=== PATIENT | male | born 1935 | race Caucasian/White ===

== ENCOUNTER → 2016-12-14 | Outpatient (CLI) | payer OTHER, BC ==
[~2016-12-14] MED LIST: AGG PO; ATOR10TA82 PO; FRRG PO; HYDC25 PO; MULT-513 PO; OMEG10007 PO
[2016-12-14 09:42] LABS: HEMATOCRIT 41.3 % (42-52); MEAN CELL VOLUME 94.7 fL (80-100); MEAN CORPUSCULAR HGB CONC 34.9 g/dl (32-36); MEAN PLATELET VOLUME 9.8 fL (7.4-10.4); PLATELET COUNT 213 K/uL (130-400); RED BLOOD COUNT 4.36 M/uL (4.7-6.1); WHITE BLOOD COUNT 5.31 K/uL (4.8-10.8)
[2016-12-14 09:47] LABS: URINE APPEARANCE CLEAR (CLEAR); URINE BILIRUBIN NEG (NEG); URINE COLOR YELLOW; URINE EPITHELIAL CELL AUTO 0-5 /lpf (0-5); URINE NITRITE NEG (NEG); URINE PH 6.5 (4.5-7.5); URINE SPECIFIC GRAVITY 1.015 (1.000-1.030); UROBILINOGEN NEG (NEG)
[2016-12-14 09:50] LABS: MANUAL MICROSCOPIC REQUIRED? NO; REVIEW REQ? NO
[2016-12-14 10:04] LABS: BLOOD UREA NITROGEN 19 mg/dl (7-18); BUN/CREATININE RATIO 11.9 (10-20); CALCIUM 8.6 mg/dl (8.5-10.1); CARBON DIOXIDE 28 mmol/L (21-32); CHLORIDE 102 mmol/L (98-107); GLUCOSE 107 mg/dl (70-99); PHOSPHORUS 2.6 mg/dl (2.5-4.9); POTASSIUM 4.3 mmol/L (3.5-5.1); SODIUM 137 mmol/L (136-145)
[2016-12-14 10:29] LABS: URINE PROTIEN/CREAT RATIO 0.1 (0-0.2); URINE TOTAL PROTEIN 14.4 mg/dl (0-11.9)
== END | disposition home or self-care (01) ==
LOC: C.LAB1850 07:14
PROVIDERS: ATTEND Internal Medicine Nephrology
DX: I10 Essential (primary) hypertension (principal); N18.3 Chronic kidney disease, stage 3 (moderate); D63.8 Anemia in other chronic diseases classified elsewhere; N25.81 Secondary hyperparathyroidism of renal origin

== ENCOUNTER → 2017-06-14 | Outpatient (CLI) | payer OTHER, BC ==
[~2017-06-14] MED LIST changes: -ATOR10TA82 PO; +ATOR10TA88 PO
[2017-06-14 16:41] LABS: HEMATOCRIT 39.8 % (42-52); MEAN CORPUSCULAR HEMOGLOBIN 32.2 pg (25-34); MEAN CORPUSCULAR HGB CONC 33.9 g/dl (32-36); MEAN PLATELET VOLUME 10.6 fL (7.4-10.4); PLATELET COUNT 215 K/uL (130-400); RED BLOOD COUNT 4.19 M/uL (4.7-6.1); WHITE BLOOD COUNT 5.82 K/uL (4.8-10.8)
[2017-06-14 16:47] LABS: BLOOD UREA NITROGEN 21 mg/dl (7-18); BUN/CREATININE RATIO 13.7 (10-20); CALCIUM 9.4 mg/dl (8.5-10.1); CARBON DIOXIDE 27 mmol/L (21-32); CHLORIDE 101 mmol/L (98-107); GLUCOSE 91 mg/dl (70-99); SODIUM 135 mmol/L (136-145)
[2017-06-14 16:48] LABS: PHOSPHORUS 2.9 mg/dl (2.5-4.9); URINE APPEARANCE CLEAR (CLEAR); URINE BILIRUBIN NEG (NEG); URINE COLOR YELLOW; URINE EPITHELIAL CELL AUTO 0-5 /lpf (0-5); URINE NITRITE NEG (NEG); URINE SPECIFIC GRAVITY 1.015 (1.000-1.030); UROBILINOGEN NEG (NEG)
[2017-06-14 16:50] LABS: MANUAL MICROSCOPIC REQUIRED? NO; REVIEW REQ? NO
[2017-06-14 16:57] LABS: URINE TOTAL PROTEIN < 5.0 mg/dl (0-11.9)
== END | disposition home or self-care (01) ==
LOC: C.LAB1850 14:49
PROVIDERS: ATTEND Internal Medicine Nephrology
DX: J45.909 Unspecified asthma, uncomplicated (principal); I12.9 Hypertensive chronic kidney disease with stage 1 through stage 4 chronic kidney disease, or unspecified chronic kidney disease; N18.3 Chronic kidney disease, stage 3 (moderate); N25.81 Secondary hyperparathyroidism of renal origin

== ENCOUNTER → 2017-12-18 | Outpatient (CLI) | payer OTHER, BC ==
[~2017-12-18] MED LIST changes: +ATOR10TA82 PO; -ATOR10TA88 PO
[2017-12-18 09:34] LABS: HEMATOCRIT 40.7 % (42-52); HEMOGLOBIN 14.3 g/dL (14.0-18.0); MEAN CELL VOLUME 94.9 fL (80-100); MEAN CORPUSCULAR HEMOGLOBIN 33.3 pg (25-34); MEAN CORPUSCULAR HGB CONC 35.1 g/dl (32-36); MEAN PLATELET VOLUME 10.1 fL (7.4-10.4); PLATELET COUNT 224 K/uL (130-400); RED CELL DISTRIBUTION WIDTH SD 44.4 fL (36.4-46.3); WHITE BLOOD COUNT 4.78 K/uL (4.8-10.8)
[2017-12-18 09:49] LABS: ALBUMIN 3.6 gm/dl (3.4-5.0); BLOOD UREA NITROGEN 18 mg/dl (7-18); CARBON DIOXIDE 27 mmol/L (21-32); CREATININE 1.57 mg/dl (0.60-1.40); GLUCOSE 100 mg/dl (70-99); POTASSIUM 3.9 mmol/L (3.5-5.1); SODIUM 133 mmol/L (136-145)
[2017-12-18 09:50] LABS: PHOSPHORUS 2.7 mg/dl (2.5-4.9)
== END | disposition home or self-care (01) ==
LOC: C.LAB1850 07:13
PROVIDERS: ATTEND Internal Medicine Nephrology
DX: I12.9 Hypertensive chronic kidney disease with stage 1 through stage 4 chronic kidney disease, or unspecified chronic kidney disease (principal); N18.3 Chronic kidney disease, stage 3 (moderate); N25.81 Secondary hyperparathyroidism of renal origin; D63.8 Anemia in other chronic diseases classified elsewhere

== ENCOUNTER 2020-11-29 09:34 | Observation (INO) ==
--- NOTE | 2020-11-29 10:05 | Emergency Department Note ---
Impression & Plan Retrosternal chest pain ED Provider Note INFORMANT: Patient ED PROVIDER(S): Alonzo Pantoja MD CHIEF COMPLAINT: Chest pain PLAN: Disposition: Admitted Condition: Good Outpatient prescription management: none Referral: None MEDICAL DECISION MAKING: Patient presented complaining of intermittent chest pain. He had no pain on initial evaluation. His ECG was nonischemic. The patient had blood work and imaging done. Chest x-ray was unremarkable. The patient's blood work revealed an unremarkable CBC and chemistry panel. The patient's troponin was elevated. This was concerning. He was given oral aspirin. He was reassessed and had no additional chest pain. He will need further management in the hospital. Consultation was made with the hospitalist service, Dr. Min. Patient was evaluated in the ER for further management. Triage Nursing notes reviewed and agree them. Additional history obtained from patient's Vital Signs: reviewed and remarkable for no significant abnormalities Differential diagnosis: Cardiac ischemia, aortic dissection, pulmonary embolism, pneumothorax, pneumoni a, pericarditis, myocarditis, esophageal rupture, GERD, cholecystitis, pancreatitis, musculoskeletal, as well as other pathologies. Diagnostics interpreted by me: ECG: Twelve-lead ECG reveals sinus rhythm with sinus arrhythmia at [address] elevation or depression. No PVCs or PACs. Normal axis and interval. Cardiac Monitoring: Cardiac monitoring ordered by me: The patient was placed on continuous cardiac monitoring and observed. It revealed a normal sinus rhythm at 70 beats per minute without ectopy or evidence of dysrhythmia. Imaging studies: Chest x-ray. Findings: A chest x-ray was performed and revealed no pneumothorax, effusion, infiltrate, pulmonary edema, free air under the d iaphragm, or wide mediastinum. Impression: No acute disease. HPI: The patient is a 85 year old male who presents to the Emergency Room with complaints of retrosternal chest pain. This started 2 days ago and is intermittent. Become severe at times. The patient also notes the following associated symptoms, weakness, chronic cough. The patient has tried Tums for relieving factors. Current pain is rated as 0/10. Pain at the maximum was 8 out of 10. No radiation. Pt denies LOC, headache, fevers, chills, diaphoresis, visual changes, neck pain, breathing difficulties, nausea, vomiting, abdominal pain, back pain, melena, hematochezia, urinary symptoms, numbness, weakness, lymphadenopathy, rash, or other complaints. ROS: See above HPI for pertinent positives & negatives. A total of 10 systems reviewed and were otherwise negative. PAST MEDICAL HISTORY:See Below , GERD, hypertension PAST SURGICAL HISTORY:See Below, FAMILY HISTORY:See Below SOCIAL HISTORY:See Below, HOME MEDICATIONS:See Below ALLERGIES:See Below VITALS:See Below PHYSICAL EXAMINATION: GENERAL: Awake, alert, well-appearing, in no distress HENT: Normocephalic, atraumatic. Oropharynx unremarkable. EYES: Normal conjunctiva. Sclera non-icteric. NECK: Inspection normal. Non-tender. Supple. No nuchal rigidity. FROM. No masses. RESPIRATORY: Clear to auscultation. No wheezes. No rales. Normal respiratory effort. CARDIAC: Normal rate. Normal rhythm. No murmurs. No rubs. Extremities warm and well perfused. Pulses equal. No JVD. GI: Soft, non-distended. No tenderness to palpation. No rebound or guarding. No masses. RECTAL: Deferred. MUSCULOSKELETAL: Atraumatic. Chest examination reveals no tenderness. The back is symmetrical on inspection without obvious abnormality. There is no CVA tenderness to palpation. No joint edema. LOWER EXTREMITIES: Calves are equal size bilaterally and non-tender. No edema. No discoloration. NEURO: Normal sensorium. No sensory or motor deficits noted. SKIN: No rash or jaundice noted. 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 Vitamin D deficiency Surgical History History of colonoscopy History of ear surgery MASTOID SURGERY (1937) Social History Smoking Status: Never smoker Second Hand Exposure: No; Hx Alcohol Use: No Hx Substance Use: No Preferred Language: Bur[place]ian Communication Ability: Effective Senior Cost Analyst Required: No Beliefs That Will Affect Care: None Current Living Situation: Spouse Feels Safe at Home: Yes Assistive Devices: Glasses Allergies Allergies Allergy/AdvReac Type Severity Reaction Status Date / Time No Known Allergies Allergy Mild Verified 11/29/20 10:22 Home Meds Home Medications Medication Instructions Recorded Confirmed aspirin-dipyridamole [Aggrenox] 1 cap PO BID 09/30/18 11/29/20 ferrous gluconate 324 mg PO QAM 09/30/18 11/29/20 multivitamin 1 cap PO QAM 09/30/18 11/29/20 cholecalciferol (vitamin D3) 50 2,000 units PO BID cap 05/25/19 11/29/20 mcg (2,000 unit) capsule tamsulosin 0.4 mg capsule 0.4 mg PO BID #60 cap 05/25/19 11/29/20 omeprazole 20 mg capsule,delayed 20 mg PO Q OTHER DAY cap 12/28/19 11/29/20 release atorvastatin 10 mg PO DAILY 11/29/20 11/29/20 donepezil 5 mg PO QPM 11/29/20 11/29/20 famotidine 40 mg PO Q OTHER DAY 11/29/20 11/29/20 memantine [Namenda] 5 mg PO BID 11/29/20 11/29/20 sildenafil 100 mg PO UD PRN 11/29/20 11/29/20 telmisartan-hydrochlorothiazid 1 tab PO DAILY 11/29/20 11/29/20 [Micardis HCT] Results & Data (ED) Vital Signs Vital Signs - 24 hr 11/29/20 09:37 11/29/20 10:00 11/29/20 10:11 Temperature 36.6 C Temperature Source Temporal Artery Scan Pulse Rate 78 Pulse Rate [Bilateral Radial] 76 Pulse Rate from SpO2 Sensor Pulse Rhythm Regular Pulse Rhythm [Bilateral Radial] Regular Pulse Strength [Bilateral Radial] Normal Respiratory Rate 16 16 Respiratory Effort / Characteristics Non-Labored Non-Labored Respiratory Depth Normal Normal Respiratory Pattern Regular Blood Pressure 135/69 Blood Pressure [Left Arm] 141/67 H Blood Pressure Mean 91 Blood Pressure Mean [Left Arm] 91 Blood Pressure Position [Left Arm] Sitting Pulse Oximetry 97 97 97 Oxygen Delivery Method Room Air Room Air Room Air Sepsis Recent Fever Within 48 Hours No Sepsis New/Unexplained Change in Mental Status No Sepsis Action Taken by Nursing No Action Required 11/29/20 10:30 11/29/20 10:40 11/29/20 11:00 Temperature Temperature Source Pulse Rate 65 68 68 Pulse Rate [Bilateral Radial] Pulse Rate from SpO2 Sensor 67 67 67 Pulse Rhythm Pulse Rhythm [Bilateral Radial] Pulse Strength [Bilateral Radial] Respiratory Rate 19 14 18 Respiratory Effort / Characteristics Respiratory Depth Respiratory Pattern Blood Pressure 128/60 139/71 Blood Pressure [Left Arm] Blood Pressure Mean 82 93 Blood Pressure Mean [Left Arm] Blood Pressure Position [Left Arm] Pulse Oximetry 97 97 95 Oxygen Delivery Method Sepsis Recent Fever Within 48 Hours Sepsis New/Unexplained Change in Mental Status Sepsis Action Taken by Nursing 11/29/20 11:01 Temperature Temperature Source Pulse Rate 65 Pulse Rate [Bilateral Radial] Pulse Rate from SpO2 Sensor 65 Pulse Rhythm Pulse Rhythm [Bilateral Radial] Pulse Strength [Bilateral Radial] Respiratory Rate 16 Respiratory Effort / Characteristics Respiratory Depth Respiratory Pattern Blood Pressure Blood Pressure [Left Arm] Blood Pressure Mean Blood Pressure Mean [Left Arm] Blood Pressure Position [Left Arm] Pulse Oximetry 96 Oxygen Delivery Method Sepsis Recent Fever Within 48 Hours Sepsis New/Unexplained Change in Mental Status Sepsis Action Taken by Nursing Laboratory Data Result diagrams: 11/29/20 09:56 11/29/20 09:56 Lab Results 11/29/20 11/29/20 11/29/20 Range/Units 09:56 09:56 09:56 WBC 5.87 (4.8-10.8) K/uL RBC 4.28 L (4.7-6.1) M/uL Hgb 14.3 (14.0-18.0) g/dL Hct 41.8 L (42-52) % MCV 97.7 (80-100) fL MCH 33.4 (25-34) pg MCHC 34.2 (32-36) g/dL RDW Std Deviation 45.1 (36.4-46.3) fL RDW Coeff of Matt 12.6 (11.5-14.5) % Plt Count 219 (130-400) K/uL MPV 10.2 (7.4-10.4) fL Immature Gran % (Auto) 0.2 % Neut % (Auto) 61.9 % Lymph % (Auto) 21.1 % [place] % (Auto) 15.0 % Eos % (Auto) 1.5 % Baso % (Auto) 0.3 % Neut # (Auto) 3.63 (1.4-6.5) K/uL Lymph # (Auto) 1.24 (1.2-3.4) K/uL [place] # (Auto) 0.88 H (0.11-0.59) K/uL Eos # (Auto) 0.09 (0-0.5) K/uL Baso # (Auto) 0.02 (0-0.2) K/uL Immature Gran # (Auto) 0.01 (0.00-0.02) K/uL Sodium 136 (136-145) mmol/L Potassium 4.0 (3.5-5.1) mmol/L Chloride 104 (98-107) mmol/L Carbon Dioxide 26 (21-32) mmol/L Anion Gap 6.0 (3-11) BUN 32 H (7-18) mg/dl Creatinine 1.85 H (0.6-1.4) mg/dl Est Cr Clr Drug Dosing 29.6 ml/min Est GFR ( Amer) 37.4 Est GFR (Non-Af Amer) 32.3 BUN/Creatinine Ratio 17.0 (10-20) Glucose 83 (70-99) mg/dl Calcium 10.3 H (8.5-10.1) mg/dl Total Bilirubin 0.6 (0.2-1) mg/dl AST 19 (15-37) U/L ALT 24 (12-78) U/L Alkaline Phosphatase 66 (45-117) U/L Troponin I 0.498 H* (0-0.045) ng/ml Total Protein 7.7 (6.4-8.2) gm/dl Albumin 3.7 (3.4-5.0) gm/dl Globulin 4.0 (2.5-4.0) gm/dl Albumin/Globulin Ratio 0.9 (0.9-2) Lipase 204 (73-393) U/L COVID-19 Eval Order CovFluRsv at [facility] SARS-CoV-2 (PCR) (Negative) Influenza Type A (PCR) (Neg) Influenza Type B (PCR) (Neg) RSV (RT-PCR) (Neg) 11/29/20 Range/Units 09:56 WBC (4.8-10.8) K/uL RBC (4.7-6.1) M/uL Hgb (14.0-18.0) g/dL Hct (42-52) % MCV (80-100) fL MCH (25-34) pg MCHC (32-36) g/dL RDW Std Deviation (36.4-46.3) fL RDW Coeff of Matt (11.5-14.5) % Plt Count (130-400) K/uL MPV (7.4-10.4) fL Immature Gran % (Auto) % Neut % (Auto) % Lymph % (Auto) % [place] % (Auto) % Eos % (Auto) % Baso % (Auto) % Neut # (Auto) (1.4-6.5) K/uL Lymph # (Auto) (1.2-3.4) K/uL [place] # (Auto) (0.11-0.59) K/uL Eos # (Auto) (0-0.5) K/uL Baso # (Auto) (0-0.2) K/uL Immature Gran # (Auto) (0.00-0.02) K/uL Sodium (136-145) mmol/L Potassium (3.5-5.1) mmol/L Chloride (98-107) mmol/L Carbon Dioxide (21-32) mmol/L Anion Gap (3-11) BUN (7-18) mg/dl Creatinine (0.6-1.4) mg/dl Est Cr Clr Drug Dosing ml/min Est GFR ( Amer) Est GFR (Non-Af Amer) BUN/Creatinine Ratio (10-20) Glucose (70-99) mg/dl Calcium (8.5-10.1) mg/dl Total Bilirubin (0.2-1) mg/dl AST (15-37) U/L ALT (12-78) U/L Alkaline Phosphatase (45-117) U/L Troponin I (0-0.045) ng/ml Total Protein (6.4-8.2) gm/dl Albumin (3.4-5.0) gm/dl Globulin (2.5-4.0) gm/dl Albumin/Globulin Ratio (0.9-2) Lipase (73-393) U/L COVID-19 Eval Order SARS-CoV-2 (PCR) NEGATIVE (Negative) Influenza Type A (PCR) Negative (Neg) Influenza Type B (PCR) Negative (Neg) RSV (RT-PCR) Negative (Neg) Administered Medications Discontinued Medications Aspirin (Aspirin Chew 324 Mg) 243 mg PO NOW STA Stop: 11/29/20 10:49 Last Admin: 11/29/20 12:06 Dose: 243 mg Documented by: [id number] Discharge Plan Visit Data Chief Complaint: Illness Stated Complaint: CHEST PAIN ED Provider: Alonzo Pantoja Discharge Problem: Retrosternal chest pain Patient Disposition: Admitted As Inpatient Discharge Instructions Interventions: ED Discharge Assessment Last Done: 11/29/20 15:55
[2020-11-29 10:13] LABS: Basophils # (auto) 0.02 K/uL (0-0.2); Basophils % (auto) 0.3 %; Eosinophils # (auto) 0.09 K/uL (0-0.5); Eosinophils % (auto) 1.5 %; Hematocrit (blood only) 41.8 % (42-52); Hemoglobin 14.3 g/dL (14.0-18.0); Immature Granulocytes # (auto) 0.01 K/uL (0.00-0.02); Immature Granulocytes % (auto) 0.2 %; Lymphocytes # (auto) 1.24 K/uL (1.2-3.4); Lymphocytes % (auto) 21.1 %; Mean Corpuscular Hemoglobin 33.4 pg (25-34); Mean Corpuscular Hgb Conc 34.2 g/dL (32-36); Mean Corpuscular Volume 97.7 fL (80-100); Mean Platelet Volume 10.2 fL (7.4-10.4); Monocytes # (auto) 0.88 K/uL (0.11-0.59); Neutrophils # (auto) 3.63 K/uL (1.4-6.5); Neutrophils % (auto) 61.9 %; Platelet Count 219 K/uL (130-400); RDW Coefficient of Variation 12.6 % (11.5-14.5); RDW Standard Deviation 45.1 fL (36.4-46.3); Red Blood Count 4.28 M/uL (4.7-6.1); White Blood Count 5.87 K/uL (4.8-10.8)
[2020-11-29 10:31] LABS: Albumin Level 3.7 gm/dl (3.4-5.0); Calcium 10.3 mg/dl (8.5-10.1); Creatinine Clr Calc Pharmacy 29.6 ml/min; Est GFR (African American) 37.4; Est GFR (Non-African American) 32.3
[2020-11-29 10:39] LABS: Albumin Globulin Ratio 0.9 (0.9-2); Bilirubin,Total 0.6 mg/dl (0.2-1); Total Protein 7.7 gm/dl (6.4-8.2); Troponin I 0.498 ng/ml (0-0.045)
[2020-11-29] MEDS ORDERED: ASPIRIN CHEW 324 MG PO STA (10:48)
--- NOTE | 2020-11-29 10:58 | XRay Report ---
XR chest 1V portable CLINICAL HISTORY: Atypical chest pain COMPARISON STUDY: 10/01/2018 FINDINGS: The heart is the upper limits of normal in size. There is no failure. There is no focal pul monary consolidation. There are no pleural effusions.[ IMPRESSION: No active disease in the chest. ACT 112: Negative or not required by law. Electronically signed by: Medardo Alvarez M.D. 11/29/2020 10:56 AM
[2020-11-29 11:04] LABS: Influenza A virus by PCR Negative (Neg); Influenza B virus by PCR Negative (Neg); RSV by PCR Negative (Neg); SARS CoV2 RNA(COVID-19) InHosp NEGATIVE (Negative)
--- NOTE | 2020-11-29 11:11 | History & Physical Report ---
Date of Service November 29, 2020 Assessment & Plan (1) Elevated troponin: Patient presents with atypical chest pain history of GERD however has an elevated troponin in the face of chronic kidney disease stage III. There is some very minor lateral T wave changes which are nonspecific on his EKG. Subsequently the patient will be observed in our institution with serial enzymes. Depending on the trend of his enzymes he may be full anticoagulated. An echocardiogram will be obtained to evaluate cardiac function. The patient has previous cerebrovascular disease so likely is at risk for cardiovascular disease. He is previously been on Aggrenox and atorvastatin his aspirin dose will be increased his atorvastatin will be maintained. Other risk factors include male and hypertension (2) Chronic kidney disease, stage III (moderate): Longstanding history of chronic kidney disease likely based on hypertension (3) Hypertension: Patient typically takes telmisartan hydrochlorothiazide for blood pressure control (4) GERD (gastroesophageal reflux disease): Patient has multiple medications targeted at his GERD including Pepcid and omeprazole (5) BPH (benign prostatic hyperplasia): Patient remains on tamsulosin without lower urinary tract symptoms patient states he is only taking it once a day despite his medical reconciliation (6) Dementia: (7) DVT prophylaxis: Heparin is chosen for DVT prevention in case the patient needs proceed to cardiac intervention History of Present Illness Primary Care Provider: Pino Tucker MD 85 year old male who presents to the Emergency Room with complaints of retrosternal chest pain. This started 2 days ago and is intermittent. Pain at the maximum was 8 out of 10. No radiation or associated symptoms. Patient has suffered from reflux for years taking both omeprazole and Prilosec. Patient is to have an upper endoscopy. Patient is states that recumbency does not worsen his pain sitting up does not relieve it. Pain is nonpleuritic and is also not worsened with exertion. Patient denies any melena, hematochezia, patient does suffer from urinary frequency at night subsequently taking Flomax to help with this. Patient currently is pain-free Covid testing is negative patient is observed for chest pain which is atypical with elevated troponin Allergies Allergy/AdvReac Type Severity Reaction Status Date / Time No Known Allergies Allergy Mild Verified 11/29/20 10:22 Home Medications Medication Instructions Recorded Confirmed Type aspirin-dipyridamole [Aggrenox] 1 cap PO BID 09/30/18 11/29/20 History ferrous gluconate 324 mg PO QAM 09/30/18 11/29/20 History multivitamin 1 cap PO QAM 09/30/18 11/29/20 History cholecalciferol (vitamin D3) 50 2,000 units PO BID cap 05/25/19 11/29/20 History mcg (2,000 unit) capsule tamsulosin 0.4 mg capsule 0.4 mg PO BID #60 cap 05/25/19 11/29/20 History omeprazole 20 mg capsule,delayed 20 mg PO Q OTHER DAY cap 12/28/19 11/29/20 History release atorvastatin 10 mg PO DAILY 11/29/20 11/29/20 History donepezil 5 mg PO QPM 11/29/20 11/29/20 History famotidine 40 mg PO Q OTHER DAY 11/29/20 11/29/20 History memantine [Namenda] 5 mg PO BID 11/29/20 11/29/20 History sildenafil 100 mg PO UD PRN 11/29/20 11/29/20 History telmisartan-hydrochlorothiazid 1 tab PO DAILY 11/29/20 11/29/20 History [Micardis HCT] Past Med/Surg History Medical History (Updated 11/29/20 @ 11:10 by Regulo Min MD) Asthma STABLE Chronic kidney disease, stage III (moderate) Hyperlipidemia Hypertension Stroke 10+ YEARS AGO; 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 Vitamin D deficiency Surgical History History of colonoscopy History of ear surgery MASTOID SURGERY (1937) Social History Smoking Status: Never smoker Second Hand Exposure: No; Hx Alcohol Use: No Hx Substance Use: No Preferred Language: German Communication Ability: Effective Green Jobs Trainer Required: No Beliefs That Will Affect Care: None Current Living Situation: Spouse Feels Safe at Home: Yes Assistive Devices: Glasses Review of Systems Review of Systems: Mild distress and fatigue currently pain-free no headache, blurry or double vision no speech or swallowing issues Describes chest pain as sharp lasting an hour radiating across his chest no shortness of breath, cough or wheezes no abdominal pain, nausea or vomiting, patient suffers from frequent diarrhea no dysuria, hematuria does have some urinary frequency which is longstanding no focal joint pain or swelling no back pain, CVA tenderness or radicular pain no bruising, bleeding or rashes no focal signs of weakness or numbness or altered sensation no complaints of anxiety or depression. Is aware of his memory impairment. Physical Exam Physical Exam: The patient appeared well nourished and normally developed. Vital signs as documented. Head exam is normocephalic atraumatic no scleral icterus Neck is without JVD, thyromegaly, or carotid bruits. Lungs are clear to auscultation, no focal loss of breath sounds Cardiac exam, Rhythm is regular.. No murmurs, rubs or gallops. Abdominal exam reveals normal bowel sounds, soft non tender, no masses Extremities are nonedematous and both pedal pulses are present Neurologic exam is alert and oriented, no focal loss of strength or sensation Skin is without bruises or rashes Psychologically is with concerns for mild dementia Results & Data Results & Data ([facility]) Vital Signs (Past 12 Hours) Vital Signs Temp Pulse Pulse Resp BP BP Pulse Ox 11/29/20 10:11 97 11/29/20 10:00 76 16 141/67 H 97 11/29/20 09:37 97.9 F 78 16 135/69 97 PG Care Time/CCT Total # of Minutes Spent Total Time Spent with Patient: Total time spent is greater than 50% in coordination of care (as documented) at patient's floor/unit and/or counseling patient: Coding Level of Care Code 30445 OBS Care - Level 3 Diagnoses Elevated troponin R77.8 Chronic kidney disease, stage III (moderate) N18.3 Hypertension I10 GERD (gastroesophageal reflux disease) K21.9 BPH (benign prostatic hyperplasia) N40.0 Dementia F03.90 DVT prophylaxis Z29.9
[2020-11-29] MEDS ORDERED: MoRPHine SULFATE 2 MG/ML CARP IV PRN (16:26)
[2020-11-29] MEDS ORDERED: NITROGLYCERIN SL 0.4 MG/TAB TAB SL PRN (16:26)
[2020-11-29] MEDS ORDERED: ACETAMINOPHEN 325 MG TAB PO PRN (16:26)
[2020-11-29] MEDS ORDERED: POLYETHYLENE (MIRALAX) 17 GM PACK PO PRN (16:26)
[2020-11-29] MEDS ORDERED: ONDANSETRON INJ 2 MG/ML 2 ML VIAL IV PRN (16:26)
[2020-11-29] MEDS ORDERED: ALUMINUM/MAGNESIUM SUSP 30 ML UDC PO PRN (16:26)
[2020-11-29] MEDS: MEMANTINE HCL 5 MG TAB PO SCH (20:13)
[2020-11-29] MEDS: HEPARIN SOD 5,000 UNIT/0.5 ML VIAL SQ SCH (20:14)
[2020-11-29] MEDS: DIPYRIDAMOLE/ASPIRIN CAP PO SCH (20:14)
[2020-11-29] MEDS ORDERED: TAMSULOSIN HCL 0.4 MG CAP PO SCH (21:00)
[2020-11-29] MEDS ORDERED: DONEPEZIL HCL 5 MG TAB PO SCH (21:00)
[2020-11-30] MEDS: DIPYRIDAMOLE/ASPIRIN CAP PO SCH (08:38)
[2020-11-30] MEDS: MEMANTINE HCL 5 MG TAB PO SCH (08:38)
[2020-11-30] MEDS: HEPARIN SOD 5,000 UNIT/0.5 ML VIAL SQ SCH (08:40)
[2020-11-30] MEDS ORDERED: TELMISARTAN 40 MG TAB PO SCH (09:00)
[2020-11-30] MEDS ORDERED: ATORVASTATIN 10 MG TAB PO SCH (09:00)
[2020-11-30] MEDS ORDERED: FERROUS GLUCONATE 324 MG TAB PO SCH (09:00)
[2020-11-30] MEDS ORDERED: ASPIRIN 325 MG ECTAB PO SCH (09:00)
[2020-11-30] MEDS ORDERED: MULTIVITAMIN TAB PO SCH (09:00)
[2020-11-30] MEDS ORDERED: PANTOprazole 40 MG TAB PO SCH (09:00)
[2020-11-30] MEDS ORDERED: hydroCHLOROthiazide 25 MG TAB PO SCH (09:00)
[2020-11-30 09:56] LABS: BUN Creatinine Ratio 17.9 (10-20); Calcium 9.2 mg/dl (8.5-10.1); Est GFR (African American) 33.4; Est GFR (Non-African American) 28.8
[2020-11-30 10:11] LABS: Troponin I 0.44 ng/ml (0-0.045)
--- NOTE | 2020-11-30 10:20 | XCELERA ---
[id number]
--- NOTE | 2020-11-30 13:49 | Electrocardiogram Report ---
Test Reason : Blood Pressure : / mmHG Vent. Rate : 071 BPM Atrial Rate : 071 BPM P-R Int : 188 ms QRS Dur : 078 ms QT Int : 418 ms P-R-T Axes : 067 049 095 degrees QTc Int : 454 ms Normal sinus rhythm Normal ECG When compared with ECG of 29-NOV-2020 09:45, No significant change was found Confirmed by Yonatan Siddiqui ([id number]) on 11/30/2020 1:49:20 PM Referred By: REFERRED SELF Confirmed By:Aki Siddiqui
--- NOTE | 2020-11-30 15:34 | XCELERA ---
[id number]
--- NOTE | 2020-11-30 16:40 | Discharge Summary ---
Date of Service November 30, 2020 Admission HPI Per Admitting Provider 85 year old male who presents to the Emergency Room with complaints of retrosternal chest pain. This started 2 days ago and is intermittent. Pain at the maximum was 8 out of 10. No radiation or associated symptoms. Patient has suffered from reflux for years taking both omeprazole and Prilosec. Patient is to have an upper endoscopy. Patient is states that recumbency does not worsen his pain sitting up does not relieve it. Pain is nonpleuritic and is also not worsened with exertion. Patient denies any melena, hematochezia, patient does suffer from urinary frequency at night subsequently taking Flomax to help with this. Patient currently is pain-free Covid testing is negative patient is observed for chest pain which is atypical with elevated troponin Admission Exam Per Admitting Provider The patient appeared well nourished and normally developed. Vital signs as documented. Head exam is normocephalic atraumatic no scleral icterus Neck is without JVD, thyromegaly, or carotid bruits. Lungs are clear to auscultation, no focal loss of breath sounds Cardiac exam, Rhythm is regular.. No murmurs, rubs or gallops. Abdominal exam reveals normal bowel sounds, soft non tender, no masses Extremities are nonedematous and both pedal pulses are present Neurologic exam is alert and oriented, no focal loss of strength or sensation Skin is without bruises or rashes Psychologically is with concerns for mild dementia Principal Diagnosis chest pain Discharge Exam Constitutional well developed and well nourished Eyes PERRL, conjunctivae normal, anicteric sclerae ENMT external ear and nose normal, oropharynx normal Neck normal visual inspection Respiratory normal respiratory effort Cardiovascular RRR, no murmur, no edema Chest (Breasts) normal inspection/palpation of breasts Gastrointestinal (Abdomen) Inspection/Auscultation: abdomen normal to inspection - non tender to palpation Skin no rashes, warm and dry Neurologic no focal motor deficits Psychiatric A+Ox3, euthymic affect Discharge Data Allergies Allergy/AdvReac Type Severity Reaction Status Date / Time No Known Allergies Allergy Mild Verified 11/29/20 10:22 Consultations 11/29/20 10:48 ED Decision to Admit Stat Hospital Course (1) Retrosternal chest pain: 85 yo M w/ pMHx. of CKD, GERD, CVA 15 years prior who presents non pleuritic retrosternal chest pain that was consistent with his GERD pain. The pain would last for > 1 hour and was not worse with exercise or food. - Troponin 0.498 -> 0.463 -> 0.452 potentially due to CKD - ECHO with EF 55-60% and normal function and aortic sclerosis mild - CXR with no active disease - negative stress test - EKG with nonspecific T-wave changes - lipase nl. - COVID swab negative CKD III - Cr. 1.85 unclear baseline potentially around 1.6 - follows with Dr. Stout GERD - potential cause of chest pain - increased Famotidine to BID - discussed discontinuing Advil HTN - continue HCTZ and telmisartan for blood pressure Follow up Saturday for hospital follow up and end december with Dr. Tucker Total Time Total Time Spent Total Time Spent (In Minutes): 35 mins Total Time Includes: Examination of the Patient, Discharge Planning and Communication With Other Providers Discharge Plan Discharge Items Patient Disposition: Home - Self-Care Reason For Visit: CHEST PAIN, ELEVATED TROPONIN Discharge Diagnosis: chest pain Activity: Per Instructions section Non-emergency contact: Primary Care Provider Call non-emergency contact if: your symptoms worsen Follow-up/Referrals: Pino Tucker MD [Primary Care Provider] - Diet: Heart Healthy Addtl Attending Provider Instructions: Chest pain You came to the hospital for chest pain. The pain was similar to your reflux pain in the past but given that it was worse and you wanted to be evaluated for other causes of the pain you presented to the hospital. We noticed that you had an elevated troponin (lab test that identifies injury to the heart). The elevated troponin is likely due to accumulation with poor kidney function. Your stress test was normal and this again was reassuring. Reflux You have reflux that is potentially the cause for your chest pain. If you can increase your Famotidine to twice a day. Also, you will need to stop taking Advil as this may be making your reflux worse. Return precautions: If you develop chest pain that is worsening with exercise, or any associated shortness of breath call or come in to get evaluated. Follow up: primary doctor Dr. Tucker in 1-2 weeks Pending Studies at Discharge: No Stand-Alone Forms: [employer], Smoking Cessation Medications and DC Order Prescriptions: Continued omeprazole 20 mg capsule,delayed release(DR/EC) 20 mg PO Q OTHER DAY RF: 0 tamsulosin 0.4 mg capsule 0.4 mg PO BID Qty: 60 RF: 0 cholecalciferol (vitamin D3) 2,000 unit capsule 2,000 units PO BID RF: 0 aspirin-dipyridamole [Aggrenox] 25-200 mg Capsule, Er Multiphase 12 Hr 1 cap PO BID RF: 0 multivitamin Capsule 1 cap PO QAM RF: 0 ferrous gluconate 324 mg (38 mg iron) Tablet 324 mg PO QAM RF: 0 telmisartan-hydrochlorothiazid [Micardis HCT] 40-12.5 mg tablet 1 tab PO DAILY RF: 0 atorvastatin 10 mg tablet 10 mg PO DAILY RF: 0 sildenafil 100 mg tablet 100 mg PO UD PRN (Reason: Erectile Dysfunction) RF: 0 memantine [Namenda] 10 mg tablet 5 mg PO BID RF: 0 donepezil 5 mg tablet 5 mg PO QPM RF: 0 Changed famotidine 40 mg tablet 40 mg PO BID Qty: 0 RF: 0 Discharge Orders: Discharge Order (Routine); Ordered 11/30/20 Ordered By: Niall Hamilton Admission Data Admit Date/Time: 11/29/20 11:16 Attending Provider: Claus Hugo Admit Provider: Regulo Min Primary Care Provider: Pino Tucker Other Providers: Regulo Min Other Interventions: Discharge Summary Assessment (RN) Last Done: 11/30/20 14:20 Supervising Physician Co-Signing Physician Notes Attending Attestation I also saw the patient the resident physician and confirmed mcmahon portions of the history and physical examination. Agree with the impression and plan as noted in the resident discharge dictation. Upon our exam around 130 this afternoon, the patient was lying supine in bed without any discomfort. His was bedside. He describes several episodes of a bilateral, mid chest pain occurring at rest over the last several days. He also has a reported history of acid reflux and in some respects this pain was similar to his acid reflux (location), and in some aspects it was different (timing, duration, and intensity). Reported no associated shortness of breath or diaphoresis. He did take some Tums, with partial relief. The pain did not worsen with exertion. He was previously on omeprazole but this was discontinued by nephrology. He was then started on famotidine 40 mg once a day. It sounds as if he takes a fair amount of ibuprofen -he would estimate 400 mg 4 or 5 days a week. The patient is also on Aggrenox. Exam 128/68, 66, 18, 36.8, 99% on room air Pleasant. Conversational. No distress appreciated. HEENT unremarkable Neck is supple. No jugular venous distention is appreciated. Heart regular rate and rhythm. Auscultated rate 62 Lungs clear with nonlabored respirations Extremities without edema Laboratory data Hemoglobin 14.3 Sodium 135, potassium 4.0. BUN 36, creatinine 2.03. Troponin I 0.498, 0.463, 0.440. Covid swab is negative. Imaging Chest x-ray was unremarkable A resting echocardiogram this morning showed preserved left ventricular function, mild concentric left ventricular hypertrophy, mild aortic valve sclerosis without significant stenosis. A treadmill stress echocardiogram performed this afternoon showed no evidence of exercise-induced ischemia. The patient achieved 7 METS, 93% of maximum age- predicted heart rate, 2.5 mph at a 12% grade. Test was terminated after he achieved target heart rate. Impression and plan Chest pain, likely GERD Negative stress echocardiogram Other diagnoses as noted in resident documentation Discharge home today Office follow-up in 1 week Trial of Tylenol instead of ibuprofen Increase famotidine to twice daily Resident Activity Tracking Resident Involvement: Resident Care Provided Care Provided: Adult [facility] CBC Results Results Complete Blood Count Results: RBC 4.28 M/uL (4.7-6.1) L 11/29/20 WBC 5.87 K/uL (4.8-10.8) 11/29/20 Hgb 14.3 g/dL (14.0-18.0) 11/29/20 Hct 41.8 % (42-52) L 11/29/20 Plt Count 219 K/uL (130-400) 11/29/20 Chemistry (BMP) Results BMP Results: Sodium 135 mmol/L (136-145) L 11/30/20 Potassium 4.0 mmol/L (3.5-5.1) 11/30/20 Chloride 104 mmol/L (98-107) 11/30/20 BUN 36 mg/dl (7-18) H 11/30/20 Creatinine 2.03 mg/dl (0.6-1.4) H 11/30/20 Glucose 162 mg/dl (70-99) H 11/30/20
== END 2020-11-30 17:30 | disposition home or self-care (01) ==
LOC: 2S 09:34 → ED 09:34 → SUATTDRO 11:16 → 2S 15:55

== ENCOUNTER 2021-08-10 23:10 | Observation (INO) ==
[2021-08-10 23:56] LABS: Basophils # (auto) 0.03 K/uL (0-0.2); Basophils % (auto) 0.4 %; Eosinophils # (auto) 0.17 K/uL (0-0.5); Eosinophils % (auto) 2.2 %; Hematocrit (blood only) 38.7 % (42-52); Hemoglobin 13.1 g/dL (14.0-18.0); Immature Granulocytes # (auto) 0.01 K/uL (0.00-0.02); Immature Granulocytes % (auto) 0.1 %; Lymphocytes # (auto) 1.72 K/uL (1.2-3.4); Mean Corpuscular Hemoglobin 33.3 pg (25-34); Mean Corpuscular Hgb Conc 33.9 g/dL (32-36); Mean Corpuscular Volume 98.5 fL (80-100); Mean Platelet Volume 10.8 fL (7.4-10.4); Monocytes # (auto) 0.81 K/uL (0.11-0.59); Monocytes % (auto) 10.3 %; Neutrophils # (auto) 5.09 K/uL (1.4-6.5); Platelet Count 176 K/uL (130-400); RDW Coefficient of Variation 12.5 % (11.5-14.5); RDW Standard Deviation 44.9 fL (36.4-46.3); Red Blood Count 3.93 M/uL (4.7-6.1); White Blood Count 7.83 K/uL (4.8-10.8)
[2021-08-11 00:28] LABS: Alanine Aminotransferase 26 U/L (12-78); Albumin Level 3.1 gm/dl (3.4-5.0); Aspartate Aminotransferase 18 U/L (15-37); BUN Creatinine Ratio 21.7 (10-20); Blood Urea Nitrogen 51 mg/dl (7-18); Calcium 9.1 mg/dl (8.5-10.1); Carbon Dioxide 26 mmol/L (21-32); Chloride 109 mmol/L (98-107); Est GFR (African American) 28.3 ml/min; Est GFR (Non-African American) 24.4 ml/min; Glucose 94 mg/dl (70-99); Lipase 303 U/L (73-393); Potassium 4.1 mmol/L (3.5-5.1); Sodium 138 mmol/L (136-145)
[2021-08-11 00:38] LABS: Albumin Globulin Ratio 0.8 (0.9-2); Alkaline Phosphatase 69 U/L (45-117); Bilirubin,Total 0.3 mg/dl (0.2-1); Globulin 3.8 gm/dl (2.5-4.0); Total Protein 6.9 gm/dl (6.4-8.2)
[2021-08-11] MEDS ORDERED: ONDANSETRON INJ 2 MG/ML 2 ML VIAL IV PRN (02:06)
[2021-08-11] MEDS ORDERED: ACETAMINOPHEN 325 MG TAB PO PRN (02:06)
[2021-08-11] MEDS ORDERED: NITROGLYCERIN SL 0.4 MG/TAB TAB SL PRN (02:06)
--- NOTE | 2021-08-11 02:11 | Emergency Department Note ---
Impression & Plan Retrosternal chest pain, Chronic kidney disease, stage III (moderate), Elevated troponin, Abnormal ECG ED Provider Note INFORMANT: Patient ED PROVIDER(S): Alonzo Pantoja MD CHIEF COMPLAINT: Chest pain PLAN: Disposition: Admitted Condition: Good Outpatient prescription management: none Referral: None MEDICAL DECISION MAKING: Patient presented to emergency department complaining of chest pain. This occurred at rest. He has been having intermittent chest discomfort and is scheduled for stress test. His prehospital ECG had very subtle ST depression in 3 and aVF initially. This did resolve on arrival. Patient's ECG here just showed poor R wave progression. No depression. His chest x-ray was unremarkable. He had slight worsening of his chronic kidney disease. The patient and his were educated. They felt comfortable with the plan of admission and further work-up. Consultation was made with Dr. Hernandez. Patient is evaluated in the ER for further management. His CBC was unremarkable. The patient's troponin is mildly elevated. Triage Nursing notes reviewed and agree them. Vital Signs: reviewed and remarkable for no significant abnormalities Differential diagnosis: Diagnostics interpreted by me: ECG: Twelve-lead ECG revealed sinus rhythm with first-degree block with PACs. Rate 63 bpm. Poor R wave progression. Cardiac Monitoring: Cardiac monitoring ordered by me: The patient was placed on continuous cardiac monitoring and observed. It revealed a normal sinus rhythm at 64 beats per minute without evidence of dysrhythmia. Imaging studies: Chest x-ray. Findings: A chest x-ray was performed and revealed no pneumothorax, effusion, infiltrate, pulmonary edema, free air under the diaphragm, or wide mediastinum. Impression: No acute disease. HPI: The patient is a 85year old male who presents to the Emergency Room with complaints of retrosternal chest pain. This started about 1 hour prior to arrival and is currently resolved. The patient also notes the following associated symptoms, none. The patient has been given aspirin and fentanyl by EMS forrelieving factors. Current pain is rated a 0/10. Patient is to have a stress test due to intermittent chest pains next week. EMS was concerned and noted that he was having some slight ST depression inferiorly on his first ECG. Pt denies LOC, headache, fevers, chills, diaphoresis, visual changes, neck pain, breathing difficulties, nausea, vomiting, abdominal pain, back pain, melena, hematochezia, urinary symptoms, numbness, weakness, lymphadenopathy, rash, or other complaints. ROS: See above HPI for pertinent positives & negatives. A total of 10 systems reviewed and were otherwise negative. PAST MEDICAL HISTORY:See Below , CKD PAST SURGICAL HISTORY:See Below, FAMILY HISTORY:See Below SOCIAL HISTORY:See Below, HOME MEDICATIONS:See Below ALLERGIES:See Below VITALS:See Below PHYSICAL EXAMINATION: GENERAL: Awake, alert, well-appearing, in no distress HENT: Normocephalic, atraumatic. Oropharynx unremarkable. EYES: Normal conjunctiva. Sclera non-icteric. NECK: Inspection normal. Non-tender. Supple. No nuchal rigidity. FROM. No mas ses. RESPIRATORY: Clear to auscultation. No wheezes. No rales. Normal respiratory effort. CARDIAC: Normal rate. Normal rhythm. No murmurs. No rubs. Extremities warm and well perfused. Pulses equal. No JVD. GI: Soft, non-distended. No tenderness to palpation. No rebound or guarding. No masses. RECTAL: Deferred. MUSCULOSKELETAL: Atraumatic. Chest examination reveals no tenderness. The back is symmetrical on inspection without obvious abnormality. There is no CVA tenderness to palpation. No joint edema. LOWER EXTREMITIES: Calves are equal size bilaterally and non-tender. No edema. No discoloration. NEURO: Normal sensorium. No sensory or motor deficits noted. SKIN: No rash or jaundice noted. Alonzo Pantoja MD Past Med/Surg History Medical History (Updated 08/11/21 @ 02:11 by Alonzo Pantoja MD) Asthma STABLE BPH (benign prostatic hyperplasia) Chronic cough Chronic kidney disease, stage III (moderate) JURADO (dyspnea on exertion) started ~3 months ago. 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 Weight loss, unintentional 10-15lbs in the last ~3-4 months Surgical History History of colonoscopy History of ear surgery MASTOID SURGERY (1937) History of herniorrhaphy inguinal hernia repair Family History (Updated 08/02/21 @ 12:18 by Carlene Recinos RN) Son FHx: heart disease History of heart artery stent FHx: myocardial infarction, Onset Age: 58 late 50's Father FHx: heart disease Brother FHx: heart disease Sister FHx: heart disease FHx: cancer unsure of what type of cancer Other No family history of adverse response to anesthesia Social History Smoking Status: Former smoker Second Hand Exposure: No; Hx Alcohol Use: No Hx Substance Use: No Preferred Language: Panamanian Communication Ability: Effective Sourcing Intern Required: No Beliefs That Will Affect Care: Yarsani Yarsani Beliefs: Druze Current Living Situation: Spouse Feels Safe at Home: Yes Assistive Devices: Glasses and Hearing Aid - Bilateral Allergies Allergies Allergy/AdvReac Type Severity Reaction Status Date / Time No Known Allergies Allergy Mild Verified 08/11/21 00:17 Home Meds Home Medications Medication Instructions Recorded Confirmed tamsulosin 0.4 mg capsule 0.4 mg PO BID #60 cap 05/25/19 08/11/21 atorvastatin 10 mg tablet 10 mg PO QAM 11/29/20 08/11/21 memantine 10 mg tablet (Namenda) 5 mg PO BID 11/29/20 08/11/21 sildenafil 100 mg tablet 100 mg PO UD PRN 11/29/20 08/11/21 telmisartan 40 1 tab PO DAILY 11/29/20 08/11/21 mg-hydrochlorothiazide 12.5 mg tablet (Micardis HCT) donepezil 10 mg tablet 10 mg PO QPM 08/02/21 08/11/21 glucosamine sulf dipot 1 cap PO QAM 08/02/21 08/11/21 chlr,msm,chond 550 mg-C 30 mg-deejay 1 mg capsule (Glucosamine Chondroitin) vitamin A-vitamin C-vit E-min 1 tab PO QAM 08/02/21 08/11/21 tablet ascorbic acid (vitamin C) 500 mg 0 mg PO DAILY 08/11/21 08/11/21 tablet (Vitamin C) aspirin 25 mg-dipyridamole 200 mg 1 cap PO BID 08/11/21 08/11/21 capsule,ext.release 12 hr multiphase cholecalciferol (vitamin D3) 25 50 mcg PO DAILY 08/11/21 08/11/21 mcg (1,000 unit) capsule (Vitamin D3) ferrous sulfate 325 mg (65 mg 325 mg PO DAILY 08/11/21 08/11/21 iron) tablet Previous Rx's Medication Instructions Recorded famotidine 40 mg tablet 40 mg PO BID #0 tab 11/30/20 Results & Data (ED) Vital Signs Vital Signs - 24 hr 08/10/21 23:39 08/11/21 00:30 08/11/21 01:02 Temperature 36.9 C Temperature Source Oral Pulse Rate 65 Pulse Rate [Right Finger] 69 63 Pulse Rhythm Regular Respiratory Rate 19 20 16 Respiratory Effort / Characteristics Non-Labored Spontaneous Respiratory Depth Normal Respiratory Pattern Regular Blood Pressure 138/73 Blood Pressure [Right Arm] 114/61 120/61 Blood Pressure Mean 94 Blood Pressure Mean [Right Arm] 78 80 Pulse Oximetry 93 93 93 Oxygen Delivery Method Room Air Sepsis Recent Fever Within 48 Hours No Sepsis New/Unexplained Change in Mental Status N/A Sepsis Action Taken by Nursing No Action Required Laboratory Data Result diagrams: 08/10/21 23:42 08/10/21 23:42 Lab Results 08/10/21 08/10/21 08/11/21 Range/Units 23:42 23:42 00:02 WBC 7.83 (4.8-10.8) K/uL RBC 3.93 L (4.7-6.1) M/uL Hgb 13.1 L (14.0-18.0) g/dL Hct 38.7 L (42-52) % MCV 98.5 (80-100) fL MCH 33.3 (25-34) pg MCHC 33.9 (32-36) g/dL RDW Std Deviation 44.9 (36.4-46.3) fL RDW Coeff of Matt 12.5 (11.5-14.5) % Plt Count 176 (130-400) K/uL MPV 10.8 H (7.4-10.4) fL Immature Gran % (Auto) 0.1 % Neut % (Auto) 65.0 % Lymph % (Auto) 22.0 % [place] % (Auto) 10.3 % Eos % (Auto) 2.2 % Baso % (Auto) 0.4 % Neut # (Auto) 5.09 (1.4-6.5) K/uL Lymph # (Auto) 1.72 (1.2-3.4) K/uL [place] # (Auto) 0.81 H (0.11-0.59) K/uL Eos # (Auto) 0.17 (0-0.5) K/uL Baso # (Auto) 0.03 (0-0.2) K/uL Immature Gran # (Auto) 0.01 (0.00-0.02) K/uL Sodium 138 (136-145) mmol/L Potassium 4.1 (3.5-5.1) mmol/L Chloride 109 H (98-107) mmol/L Carbon Dioxide 26 (21-32) mmol/L Anion Gap 3.0 (3-11) BUN 51 H (7-18) mg/dl Creatinine 2.33 H (0.6-1.4) mg/dl Est Cr Clr Drug Dosing Not Reportable Est GFR ( Amer) 28.3 ml/min Est GFR (Non-Af Amer) 24.4 ml/min BUN/Creatinine Ratio 21.7 H (10-20) Glucose 94 (70-99) mg/dl Calcium 9.1 (8.5-10.1) mg/dl Total Bilirubin 0.3 (0.2-1) mg/dl AST 18 (15-37) U/L ALT 26 (12-78) U/L Alkaline Phosphatase 69 (45-117) U/L Troponin I 0.570 H* (0-0.045) ng/ml Total Protein 6.9 (6.4-8.2) gm/dl Albumin 3.1 L (3.4-5.0) gm/dl Globulin 3.8 (2.5-4.0) gm/dl Albumin/Globulin Ratio 0.8 L (0.9-2) Lipase 303 (73-393) U/L SARS-CoV-2, RNA, NAAT NEGATIVE (NEGATIVE) Discharge Plan Visit Data Chief Complaint: Chest Pain Stated Complaint: Chest Pain ED Provider: Alonzo Pantoja Discharge Problem: Retrosternal chest pain, Chronic kidney disease, stage III (moderate), Elevated troponin, Abnormal ECG Patient Disposition: Admitted As Inpatient Discharge Instructions Interventions: ED Discharge Assessment Last Done: 08/11/21 02:05
[2021-08-11] MEDS: LACTATED RINGER'S 1,000 ML IV SCH ×2 (02:19→17:52)
--- NOTE | 2021-08-11 03:05 | History & Physical Report ---
Date of Service August 11, 2021 Assessment & Plan (1) Retrosternal chest pain: Plan: 85yo male with HTN, HLP presenting with retrosternal chest discomfort, ST depressions present initially by report, troponin is elevated at 0.57 (with history of prior troponin elevations 0.440 - 0.570) since November 2020. Presently HD stable, CP free -Observation to medical with telemetry -Trend troponin - if next value is elevated will initiate heparin gtt -Continue ASA/Dypyridamole, Atorvastatin -Cardiology consultation appreciated (2) GERD (gastroesophageal reflux disease): Plan: Chronic. Controlled -Continue Famotidine 40mg po BID (3) Hyperlipidemia: Plan: Chronic -Continue Atorvastatin (4) Hypertension: Plan: Chronic. Blood pressure 123/58 -Continue Telmisartan/HCTZ -Monitor (5) Dementia: Plan: Chronic. Patient is able to provide information, follow commands -Continue Namenda, Aricept History of Present Illness Chief Complaint: chest pain Primary Care Provider: Pino Tucker MD Sudeep Valencia is an 85yo male with history of HTN, HLP presenting with substernal chest pain. Pain started last night around 21:00 while patient was at rest, upper chest with radiation to bilateral shoulders, 5/10 in severity. Pain was relieved by ASA and Fentanyl administered by EMS. Patient reports intermittent chest discomfort ongoing for the last several months. Prior episodes of chest discomfort are similar to the discomfort he felt prior to arrival. Prior episodes have mostly occurred with exertion - yard work, walking, and have been relieved with brief episodes of rest. Tonight is the first time patient experienced chest pain while at rest. Presently with no complaints of chest pain. Patient was admitted in November 2020 for similar complaints. He had a stress echo performed on 11/30/20 which was negative for inducible ischemia. He has an Cardiology appointment arranged with Dr. Linda from 08/24/21 Patient's Covid-19 test is NEGATIVE. He is vaccinated against Covid-19 and received his booster vaccine yesterday Allergies Allergy/AdvReac Type Severity Reaction Status Date / Time No Known Allergies Allergy Mild Verified 08/11/21 00:17 Home Medications Medication Instructions Recorded Confirmed Type tamsulosin 0.4 mg capsule 0.4 mg PO BID #60 cap 05/25/19 08/11/21 History atorvastatin 10 mg tablet 10 mg PO QAM 11/29/20 08/11/21 History memantine 10 mg tablet (Namenda) 5 mg PO BID 11/29/20 08/11/21 History sildenafil 100 mg tablet 100 mg PO UD PRN 11/29/20 08/11/21 History telmisartan 40 1 tab PO DAILY 11/29/20 08/11/21 History mg-hydrochlorothiazide 12.5 mg tablet (Micardis HCT) famotidine 40 mg tablet 40 mg PO BID #0 tab 11/30/20 08/11/21 Rx donepezil 10 mg tablet 10 mg PO QPM 08/02/21 08/11/21 History glucosamine sulf dipot 1 cap PO QAM 08/02/21 08/11/21 History chlr,msm,chond 550 mg-C 30 mg-deejay 1 mg capsule (Glucosamine Chondroitin) vitamin A-vitamin C-vit E-min 1 tab PO QAM 08/02/21 08/11/21 History tablet ascorbic acid (vitamin C) 500 mg 0 mg PO DAILY 08/11/21 08/11/21 History tablet (Vitamin C) aspirin 25 mg-dipyridamole 200 mg 1 cap PO BID 08/11/21 08/11/21 History capsule,ext.release 12 hr multiphase cholecalciferol (vitamin D3) 25 50 mcg PO DAILY 08/11/21 08/11/21 History mcg (1,000 unit) capsule (Vitamin D3) ferrous sulfate 325 mg (65 mg 325 mg PO DAILY 08/11/21 08/11/21 History iron) tablet Past Med/Surg History Medical History (Updated 08/11/21 @ 02:11 by Alonzo Pantoja MD) Asthma STABLE BPH (benign prostatic hyperplasia) Chronic cough Chronic kidney disease, stage III (moderate) JURADO (dyspnea on exertion) started ~3 months ago. 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 Weight loss, unintentional 10-15lbs in the last ~3-4 months Surgical History History of colonoscopy History of ear surgery MASTOID SURGERY (1937) History of herniorrhaphy inguinal hernia repair Family History (Updated 08/02/21 @ 12:18 by Carlene Recinos RN) Son FHx: heart disease History of heart artery stent FHx: myocardial infarction, Onset Age: 58 late 50's Father FHx: heart disease Brother FHx: heart disease Sister FHx: heart disease FHx: cancer unsure of what type of cancer Other No family history of adverse response to anesthesia Social History Smoking Status: Never smoker Second Hand Exposure: No; Hx Alcohol Use: No Hx Substance Use: No Preferred Language: Lao Communication Ability: Effective Physician General Internal Medicine Required: No Beliefs That Will Affect Care: None Current Living Situation: Spouse Feels Safe at Home: Yes Safety Concerns: Feels Safe At This Time Assistive Devices: Glasses and Hearing Aid - Bilateral Review of Systems Review of Systems: All systems reviewed & are unremarkable except as noted in HPI & below Physical Exam Physical Exam: General: patient resting comfortably, NAD, non-toxic in appearance, AA&O x 4 Skin: warm, dry, intact, no rashes or lesions HEENT: NC/AT, PERRL, EOMI, anicteric sclera, conjunctiva without injection, external ear normal to inspection and nontender, nares patent, moist mucus membranes, dentition intact, no oropharyngeal lesions, neck supple, trachea midline, no LAD, no thyromegaly, no JVD Heart: +S1/S2, regular, no m/r/g Lungs: equal air entry bilaterally, no rales/rhonchi/wheezes Abd: +BS, soft, NT/ND, no masses/organomegaly/ascites Ext: warm, 2+ pulses in UE/LE bilaterally, no clubbing/cyanosis or edema Neuro: nonfocal, patient AA&O x 4, speech intact, no facial droop, moving all extremities on command with equal strength 5/5 Results & Data Results & Data ([facility]) Vital Signs (Past 12 Hours) Vital Signs Temp Pulse Pulse Resp BP BP Pulse Ox 08/11/21 01:02 63 16 120/61 93 08/11/21 00:30 69 20 114/61 93 08/10/21 23:39 36.9 C 65 19 138/73 93 Laboratory Results Laboratory Results WBC 7.83 K/uL (4.8-10.8) 08/10/21 23:42 RBC 3.93 M/uL (4.7-6.1) L 08/10/21 23:42 Hgb 13.1 g/dL (14.0-18.0) L 08/10/21 23:42 Hct 38.7 % (42-52) L 08/10/21 23:42 MCV 98.5 fL (80-100) 08/10/21 23:42 MCH 33.3 pg (25-34) 08/10/21 23:42 MCHC 33.9 g/dL (32-36) 08/10/21 23:42 RDW Std Deviation 44.9 fL (36.4-46.3) 08/10/21 23:42 RDW Coeff of Matt 12.5 % (11.5-14.5) 08/10/21 23:42 Plt Count 176 K/uL (130-400) 08/10/21 23:42 MPV 10.8 fL (7.4-10.4) H 08/10/21 23:42 Immature Gran % (Auto) 0.1 % 08/10/21 23:42 Neut % (Auto) 65.0 % 08/10/21 23:42 Lymph % (Auto) 22.0 % 08/10/21 23:42 [place] % (Auto) 10.3 % 08/10/21 23:42 Eos % (Auto) 2.2 % 08/10/21 23:42 Baso % (Auto) 0.4 % 08/10/21 23:42 Neut # (Auto) 5.09 K/uL (1.4-6.5) 08/10/21 23:42 Lymph # (Auto) 1.72 K/uL (1.2-3.4) 08/10/21 23:42 [place] # (Auto) 0.81 K/uL (0.11-0.59) H 08/10/21 23:42 Eos # (Auto) 0.17 K/uL (0-0.5) 08/10/21 23:42 Baso # (Auto) 0.03 K/uL (0-0.2) 08/10/21 23:42 Immature Gran # (Auto) 0.01 K/uL (0.00-0.02) 08/10/21 23:42 Sodium 138 mmol/L (136-145) 08/10/21 23:42 Potassium 4.1 mmol/L (3.5-5.1) 08/10/21 23:42 Chloride 109 mmol/L (98-107) H 08/10/21 23:42 Carbon Dioxide 26 mmol/L (21-32) 08/10/21 23:42 Anion Gap 3.0 (3-11) 08/10/21 23:42 BUN 51 mg/dl (7-18) H 08/10/21 23:42 Creatinine 2.33 mg/dl (0.6-1.4) H 08/10/21 23:42 Est Cr Clr Drug Dosing Not Reportable 08/10/21 23:42 Est GFR ( Amer) 28.3 ml/min 08/10/21 23:42 Est GFR (Non-Af Amer) 24.4 ml/min 08/10/21 23:42 BUN/Creatinine Ratio 21.7 (10-20) H 08/10/21 23:42 Glucose 94 mg/dl (70-99) 08/10/21 23:42 Calcium 9.1 mg/dl (8.5-10.1) 08/10/21 23:42 Total Bilirubin 0.3 mg/dl (0.2-1) 08/10/21 23:42 AST 18 U/L (15-37) 08/10/21 23:42 ALT 26 U/L (12-78) 08/10/21 23:42 Alkaline Phosphatase 69 U/L (45-117) 08/10/21 23:42 Troponin I 0.570 ng/ml (0-0.045) H* 08/10/21 23:42 Total Protein 6.9 gm/dl (6.4-8.2) 08/10/21 23:42 Albumin 3.1 gm/dl (3.4-5.0) L 08/10/21 23:42 Globulin 3.8 gm/dl (2.5-4.0) 08/10/21 23:42 Albumin/Globulin Ratio 0.8 (0.9-2) L 08/10/21 23:42 Lipase 303 U/L (73-393) 08/10/21 23:42 SARS-CoV-2, RNA, NAAT NEGATIVE (NEGATIVE) 08/11/21 00:02 ECG Additional Comments: EKG with NSR with PACs, rate of 63, 1st degree AV block with UL=565, QRS=76, KCr=344, no acute ischemic changes Code Status & VTE Plan VTE Prophylaxis Plan VTE Prophylaxis will be ordered: Yes PG Care Time/CCT Total # of Minutes Spent Total Time Spent with Patient: Total time spent is greater than 50% in coordination of care (as documented) at patient's floor/unit and/or counseling patient: Coding Level of Care Code INT OBSERVATION CARE 50M LVL 2 Diagnoses GERD (gastroesophageal reflux disease) K21.9 Hyperlipidemia E78.5 Hypertension I10 Dementia F03.90 Retrosternal chest pain R07.2
[2021-08-11 07:01] LABS: Basophils # (auto) 0.03 K/uL (0-0.2); Basophils % (auto) 0.5 %; Eosinophils # (auto) 0.18 K/uL (0-0.5); Hemoglobin 12.3 g/dL (14.0-18.0); Immature Granulocytes # (auto) 0.01 K/uL (0.00-0.02); Immature Granulocytes % (auto) 0.2 %; Lymphocytes # (auto) 1.12 K/uL (1.2-3.4); Lymphocytes % (auto) 18.8 %; Mean Corpuscular Hemoglobin 32.8 pg (25-34); Mean Corpuscular Hgb Conc 33.2 g/dL (32-36); Mean Corpuscular Volume 98.7 fL (80-100); Mean Platelet Volume 10.8 fL (7.4-10.4); Monocytes # (auto) 0.85 K/uL (0.11-0.59); Monocytes % (auto) 14.3 %; Neutrophils # (auto) 3.77 K/uL (1.4-6.5); Neutrophils % (auto) 63.2 %; Platelet Count 162 K/uL (130-400); RDW Coefficient of Variation 12.5 % (11.5-14.5); RDW Standard Deviation 45.2 fL (36.4-46.3); Red Blood Count 3.75 M/uL (4.7-6.1); White Blood Count 5.96 K/uL (4.8-10.8)
--- NOTE | 2021-08-11 07:32 | XRay Report ---
XR chest 1V portable HISTORY: Atypical Chest Pain COMPARISON: Chest 06/13/2021. FINDINGS: No pneumothorax. No pleural effusions. No new focal lung consolidations to suggest pneumoni a. No evidence for pulmonary edema. There is emphysema with biapical chronic interstitial thickening. This remains unchanged. The cardiac silhouette remains mildly enlarged. Small nodular densities with in the right lung base correspond to calcification within the overlying anterior rib. IMPRESSION: Emphysema with chronic interstitial changes. No acute process within the chest. ACT 112: Negative or not required by law. Electronically signed by: Daniel Treadwell M.D. 08/11/2021 7:30 AM
[2021-08-11 07:34] LABS: BUN Creatinine Ratio 22.7 (10-20); Creatinine Clr Calc Pharmacy 29.7 ml/min; Est GFR (African American) 34.9 ml/min; Est GFR (Non-African American) 30.1 ml/min; Magnesium 2.5 mg/dl (1.8-2.4); Potassium 4.3 mmol/L (3.5-5.1)
[2021-08-11 07:41] LABS: Troponin I 0.771 ng/ml (0-0.045)
[2021-08-11] MEDS: TAMSULOSIN HCL 0.4 MG CAP PO SCH ×2 (08:46→20:12)
[2021-08-11] MEDS: MEMANTINE HCL 5 MG TAB PO SCH ×2 (08:46→20:12)
[2021-08-11] MEDS: TELMISARTAN 40 MG TAB PO SCH (08:46)
[2021-08-11] MEDS: FAMOTIDINE 40 MG TABLET PO SCH ×2 (08:47→20:12)
[2021-08-11] MEDS: ATORVASTATIN 10 MG TAB PO SCH (08:47)
[2021-08-11] MEDS ORDERED: DIPYRIDAMOLE/ASPIRIN CAP PO SCH (09:00)
[2021-08-11] MEDS ORDERED: hydroCHLOROthiazide 25 MG TAB PO SCH (09:00)
--- NOTE | 2021-08-11 09:11 | Cardiology Consultation ---
Date of Consultation August 11, 2021 Assessment & Plan (1) Elevated troponin: (2) Exertional chest pain: (3) Retrosternal chest pain: 1. Chest pain: The patient has symptoms consistent with exertional angina. Last night he had similar symptoms while at rest. The episode lasted approximately 15-20 minutes and did result in some elevated biomarkers. This would be concerning for unstable angina. Currently pain-free. Interestingly, he did have similar symptoms and elevated biomarkers in November of this year. At that time exercise echocardiography appeared benign without evidence of significant coronary disease. However, given the progressive nature of his symptoms and objective findings, I did suggest coronary angiography. The main risk to him is simply contrast nephropathy based on his renal insufficiency. He has been hydrated for several hours. Will attempt to use a small amount of contrast. Additional recommendations can be based on the results of angiography. History of Present Illness Reason for Consultation: Chest pain Requesting Physician: David Attending Physician: Meredith Mccartney MD History of Present Illness The patient is an 85-year-old gentleman without a known history cardiac disease who presented to the emergency room after an episode of chest discomfort. Patient states that he was trying to sleep when he began to experience symptoms of upper chest and shoulder discomfort. There was no radiation to the back or jaw. He has had similar symptoms previously but only with exertion. He believes the symptoms lasted approximately 15 minutes before EMS arrived. He states that his symptoms resolved without any specific intervention in route to the hospital. He has not had symptoms since. As noted previously with some forms of exertion he will have similar symptoms associated with dyspnea. This occurs when he mows his lawn or performs any strenuous activity. With routine activities he generally has no symptoms. He has not been aware of any recent palpitations. No episodes of dizziness or lightheadedness. No lower extremity edema. Allergies Allergy/AdvReac Type Severity Reaction Status Date / Time No Known Allergies Allergy Mild Verified 08/11/21 00:17 Home Medications Medication Instructions Recorded Confirmed Type tamsulosin 0.4 mg capsule 0.4 mg PO BID #60 cap 05/25/19 08/11/21 History atorvastatin 10 mg tablet 10 mg PO QAM 11/29/20 08/11/21 History memantine 10 mg tablet (Namenda) 5 mg PO BID 11/29/20 08/11/21 History sildenafil 100 mg tablet 100 mg PO UD PRN 11/29/20 08/11/21 History telmisartan 40 1 tab PO DAILY 11/29/20 08/11/21 History mg-hydrochlorothiazide 12.5 mg tablet (Micardis HCT) famotidine 40 mg tablet 40 mg PO BID #0 tab 11/30/20 08/11/21 Rx donepezil 10 mg tablet 10 mg PO QPM 08/02/21 08/11/21 History glucosamine sulf dipot 1 cap PO QAM 08/02/21 08/11/21 History chlr,msm,chond 550 mg-C 30 mg-deejay 1 mg capsule (Glucosamine Chondroitin) vitamin A-vitamin C-vit E-min 1 tab PO QAM 08/02/21 08/11/21 History tablet ascorbic acid (vitamin C) 500 mg 0 mg PO DAILY 08/11/21 08/11/21 History tablet (Vitamin C) aspirin 25 mg-dipyridamole 200 mg 1 cap PO BID 08/11/21 08/11/21 History capsule,ext.release 12 hr multiphase cholecalciferol (vitamin D3) 25 50 mcg PO DAILY 08/11/21 08/11/21 History mcg (1,000 unit) capsule (Vitamin D3) ferrous sulfate 325 mg (65 mg 325 mg PO DAILY 08/11/21 08/11/21 History iron) tablet Patient History Medical History (Updated 08/11/21 @ 02:11 by Alonzo Pantoja MD) Asthma STABLE BPH (benign prostatic hyperplasia) Chronic cough Chronic kidney disease, stage III (moderate) JURADO (dyspnea on exertion) started ~3 months ago. 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 Weight loss, unintentional 10-15lbs in the last ~3-4 months Surgical History History of colonoscopy History of ear surgery MASTOID SURGERY (1937) History of herniorrhaphy inguinal hernia repair Family History (Updated 08/02/21 @ 12:18 by Carlene Recinos RN) Son FHx: heart disease History of heart artery stent FHx: myocardial infarction, Onset Age: 58 late 50's Father FHx: heart disease Brother FHx: heart disease Sister FHx: heart disease FHx: cancer unsure of what type of cancer Other No family history of adverse response to anesthesia Social History Smoking Status: Never smoker Second Hand Exposure: No; Hx Alcohol Use: No Hx Substance Use: No Preferred Language: Mexican Communication Ability: Effective Cook Chief Required: No Beliefs That Will Affect Care: None Current Living Situation: Spouse Feels Safe at Home: Yes Assistive Devices: Glasses and Hearing Aid - Bilateral Review of Systems Review of Systems: Per HPI. No recent fevers or chills. Chronic cough, not worse recently. Physical Exam Physical Exam: The patient is alert and oriented. Mood and affect appeared normal. He answered all questions appropriately. HEENT: Pupils are equal and reactive to light and accommodation. Extraocular movements are intact. The sclerae are anicteric. Neuro: Cranial nerves intact (wearing mask) Neck: Patient's neck is supple. He has palpable carotid pulses bilaterally without bruits on auscultation. There is no evidence of jugular venous distention. The thyroid is not enlarged. Lungs: Clear to auscultation bilaterally. He has good air movement without use of accessory muscles. No rales wheezes or rhonchi. Cardiac: Heart demonstrates a regular rate and rhythm. Normal S1 and S2. No murmurs on examination. Pulses: The patient has palpable radial pulses bilaterally that are equal in intensity Extremities: There was no evidence of hypoperfusion. There is no cyanosis or clubbing. There is no edema. Skin: I did not appreciate any rashes on examination today. Results & Data ([facility]) Vital Signs (Past 12 Hours) Vital Signs Temp Pulse Pulse Resp BP BP Pulse Ox 08/11/21 07:31 36.7 C 61 18 109/67 96 08/11/21 06:00 59 L 18 123/61 98 08/11/21 04:00 61 18 116/55 L 94 08/11/21 02:20 65 16 123/58 L 96 08/11/21 02:05 64 16 123/58 L 94 08/11/21 01:02 63 16 120/61 93 08/11/21 00:30 69 20 114/61 93 08/10/21 23:39 36.9 C 65 19 138/73 93 Laboratory Results Abnormal Lab Results 08/10/21 08/10/21 08/11/21 23:42 23:42 00:02 WBC 7.83 RBC 3.93 L Hgb 13.1 L Hct 38.7 L MCV 98.5 MCH 33.3 MCHC 33.9 RDW Std Deviation 44.9 RDW Coeff of Matt 12.5 Plt Count 176 MPV 10.8 H Immature Gran % (Auto) 0.1 Neut % (Auto) 65.0 Lymph % (Auto) 22.0 [place] % (Auto) 10.3 Eos % (Auto) 2.2 Baso % (Auto) 0.4 Neut # (Auto) 5.09 Lymph # (Auto) 1.72 [place] # (Auto) 0.81 H Eos # (Auto) 0.17 Baso # (Auto) 0.03 Immature Gran # (Auto) 0.01 Sodium 138 Potassium 4.1 Chloride 109 H Carbon Dioxide 26 Anion Gap 3.0 BUN 51 H Creatinine 2.33 H Est Cr Clr Drug Dosing Not Reportable Est GFR ( Amer) 28.3 Est GFR (Non-Af Amer) 24.4 BUN/Creatinine Ratio 21.7 H Glucose 94 Calcium 9.1 Magnesium Total Bilirubin 0.3 AST 18 ALT 26 Alkaline Phosphatase 69 Troponin I 0.570 H* Total Protein 6.9 Albumin 3.1 L Globulin 3.8 Albumin/Globulin Ratio 0.8 L Lipase 303 SARS-CoV-2, RNA, NAAT NEGATIVE 08/11/21 08/11/21 06:07 06:07 WBC 5.96 RBC 3.75 L Hgb 12.3 L Hct 37.0 L MCV 98.7 MCH 32.8 MCHC 33.2 RDW Std Deviation 45.2 RDW Coeff of Matt 12.5 Plt Count 162 MPV 10.8 H Immature Gran % (Auto) 0.2 Neut % (Auto) 63.2 Lymph % (Auto) 18.8 [place] % (Auto) 14.3 Eos % (Auto) 3.0 Baso % (Auto) 0.5 Neut # (Auto) 3.77 Lymph # (Auto) 1.12 L [place] # (Auto) 0.85 H Eos # (Auto) 0.18 Baso # (Auto) 0.03 Immature Gran # (Auto) 0.01 Sodium 138 Potassium 4.3 Chloride 109 H Carbon Dioxide 24 Anion Gap 5.0 BUN 44 H Creatinine 1.96 H D Est Cr Clr Drug Dosing 29.7 Est GFR ( Amer) 34.9 Est GFR (Non-Af Amer) 30.1 BUN/Creatinine Ratio 22.7 H Glucose 104 H Calcium 9.0 Magnesium 2.5 H Total Bilirubin AST ALT Alkaline Phosphatase Troponin I 0.771 H* Total Protein Albumin Globulin Albumin/Globulin Ratio Lipase SARS-CoV-2, RNA, NAAT Diagnostic Findings Exercise echocardiogram performed 11/30/2020: Patient exercised for 5 minutes. No evidence of inducible ischemia Echocardiogram dated 11/30/2020: Normal LV systolic function with ejection fraction 55-60%. Mild LVH. Aortic valve sclerosis without stenosis. Chest x-ray obtained the time admission revealed some emphysema with chronic interstitial changes. No acute process. ECG Additional Comments: EKG obtained the time admission was sinus rhythm without acute ST or T-wave changes. PG Care Time/CCT Total # of Minutes Spent Total Time Spent with Patient: Total time spent is greater than 50% in coordination of care (as documented) at patient's floor/unit and/or counseling patient: Coding Level of Care Code 84821 Initial Inpt Care Lvl 3 Diagnoses Elevated troponin R77.8 Exertional chest pain R07.9 Retrosternal chest pain R07.2
[2021-08-11] MEDS ORDERED: HEPARIN (PORCINE) 1000 UNIT/ML 10 ML (CATH LAB USE ONLY) ONE ×2 (10:10→12:16)
[2021-08-11] MEDS ORDERED: niCARdipine HCL INJ 2.5 MG/ML 10 ML AMP ONE (10:10)
[2021-08-11] MEDS ORDERED: MIDAZOLAM HCL 1 MG/ML 2ML VIAL ONE (10:10)
[2021-08-11] MEDS ORDERED: fentaNYL citrate 100 MCG/2 ML VIAL ONE ×2 (10:10→12:42)
[2021-08-11] MEDS ORDERED: NITROGLYCERIN/D5W 100MCG/ML 20ML SYR ONE (10:11)
--- NOTE | 2021-08-11 10:32 | Electrocardiogram Report ---
Test Reason : Blood Pressure : / mmHG Vent. Rate : 063 BPM Atrial Rate : 063 BPM P-R Int : 224 ms QRS Dur : 076 ms QT Int : 402 ms P-R-T Axes : 050 022 034 degrees QTc Int : 411 ms Sinus rhythm with 1st degree A-V block with Premature atrial complexes Abnormal ECG When compared with ECG of 30-NOV-2020 05:29, Premature atrial complexes are now Present TX interval has increased Confirmed by Yonatan Siddiqui ([id number]) on 08/11/2021 10:32:30 AM Referred By: REFERRED SELF Confirmed By:Aki Siddiqui
--- NOTE | 2021-08-11 10:55 | XCELERA ---
[id number]
--- NOTE | 2021-08-11 10:58 | Pre Anesthesia Assessment ---
Date of Service August 11, 2021 Pre Sedation Assessment Vital Signs Temp Pulse Pulse Resp BP BP Pulse Ox 08/11/21 10:44 65 18 130/66 97 08/11/21 07:31 36.7 C 61 18 109/67 96 08/11/21 06:00 59 L 18 123/61 98 08/11/21 04:00 61 18 116/55 L 94 08/11/21 02:20 65 16 123/58 L 96 08/11/21 02:05 64 16 123/58 L 94 08/11/21 01:02 63 16 120/61 93 08/11/21 00:30 69 20 114/61 93 08/10/21 23:39 36.9 C 65 19 138/73 93 Cardiovascular + regular rate and + regular rhythm Respiratory + respiratory effort normal Pre-Sedation Airway Assessment Smoking Status: Never smoker Hx Sleep Apnea: No Hx Difficult Intubation: No Short, Thick Neck: No Thyromental Distance: > or= 3.5 Finger Breadths Oral Cavity: + WNL Mallampati Class: III ASA: ASA3 Procedure Planning Contraindications for Sedation: none Current Medications Reviewed: Yes Notes The planned sedation has been discussed with the patient. Informed Consent was obtained. I have identified the patient, determined the appropriateness of sedation and have assessed the patient immediately prior to the procedure. All medicine(s) and interventions are by my order.
[2021-08-11 11:10] LABS: Lyme Ab IgG w/WB Rflx Negative (Negative); Lyme Ab IgM w/WB Rflx Negative (Negative)
--- NOTE | 2021-08-11 11:46 | Cardiac Catheterization ---
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 Cardiac Status Clinical evaluation leading to the procedure CAD Presenation: Non STEMI Diagnostic Physicians Name: Yonatan Siddiqui MD Closure Device Recommendations: PCI without planned CABG Cardiac Cath Procedure Full Procedure Date August 11, 2021 Pre-Procedure Diagnosis Pre-Procedure Diagnosis: Non STEMI AUC Score AUC Score: 8 Post-Procedure Diagnosis Post-Procedure Diagnosis: Severe CAD Procedure(s) Performed Procedure(s) Performed: Coronary Angiography and Left Heart Cath Compliance Testing Analyst Yonatan Siddiqui MD Seismic Engineer(s) none Estimated Blood Loss Estimated Blood Loss: 7cc Medication(s) Medication(s): Fentanyl, Heparin, Lidocaine 1%, Nicardipine, Nitroglycerin and Versed Summary of Findings procedure performed: Left heart catheterization, selective coronary angiography staff advertising operations coordinator: Yonatan Siddiqui indeed indication: Patient is an 85-year-old gentleman without a known history coronary disease who presented to the hospital with symptoms of both exertional and rest chest discomfort. He had mild elevation of cardiac biomarkers was Advised to undergo coronary angiography for diagnosis. procedure detail: Patient was informed the risks benefits and alternatives to the intended procedure. He understood which proceed. He is taken to the cardiac catheterization suite in a fasting state. Conscious sedation was administered per protocol the patient was monitored electrocardiographically throughout toda y's procedure. The right radial area was prepped and draped in usual sterile fashion. This area was anesthetized using subcutaneous menstruation lidocaine solution. Right radial artery was simply access using Seldinger technique and sheath was placed over guidewire at this site. The sheath was used facilitate passage of the cardiac catheters for selective coronary angiography and left heart catheterization. Images were obtained in multiple orthogonal views prior to removal of the catheter. Based on the results of angiography the patient was referred for immediate percutaneous intervention. Patient tolerated procedure well. There were no immediate complications. Equipment used: 5 Peruvian tiger 4 findings: Coronary angiography left main: Left main coronary artery was normal in size and caliber. It bifurcated into left anterior descending left circumflex arteries. No significant disease in this vessel. Left anterior descending: Left anterior descending was a large transapical vessel. It was tortuous. It produced 2 small diagonal branches and a large 3rd diagonal branch. There were luminal regularities but no discrete stenosis. left circumflex: Left circumflex was a nondominant vessel. It produced a high OM 1 and a large OM2. These vessels were tortuous but there were no discrete lesions. Right coronary: The right coronary was a large dominant vessel. He it was subtotally occluded at the ostium. There was PAULINE 2 flow. The vessel was very tortuous. There is also approximately 50% lesion its proximal portion. Impression: Right dominant coronary system No evidence of aortic stenosis normal left ventricular filling pressures Obstructive coronary disease involving the ostial right coronary Hemodynamics Rest Ao:: 82/36 mm of mercury Final Ao: 98/44 mm of mercury LV: 86/0 mm of mercury Left ventricular end-diastolic pressure, 5 mm of mercury Recommendations Recommendations: PCI without planned CABG Specimens Specimens: None Radiation Exposure (mGy) 548 Contrast (mls) 30 Procedural Complication(s) None Disposition PCU I attest to the content of the Intraoperative Record and any orders documented therein. Any exceptions are noted below. [facility] Card Cath Procedure Codes Cardiac Catheterization Procedure 1: Cardiovascular Cath Procedures: 51664 Coronaries and LHC (+/-LV) Moderate Sedation Procedure 1: Sedation/Anesthesia: 25033 Mod Sedation by the same physician;Init15 Min Child Age 5 & Up PG Care Time/CCT Total # of Minutes Spent Total Time Spent with Patient: Total time spent is greater than 50% in coordination of care (as documented) at patient's floor/unit and/or counseling patient:
[2021-08-11] MEDS ORDERED: ATROPINE SULFATE 0.1 MG/ML 10ML SYR IV ONE (11:58)
[2021-08-11] MEDS ORDERED: CLOPIDOGREL BISULFATE 300 MG TAB ONE (12:52)
--- NOTE | 2021-08-11 13:05 | Post Anesthesia Assessment ---
Date of Service August 11, 2021 Post Sedation Assessment Vital Signs Temp Pulse Pulse Resp BP BP Pulse Ox 08/11/21 10:44 65 18 130/66 97 08/11/21 07:31 98.1 F 61 18 109/67 96 08/11/21 06:00 59 L 18 123/61 98 08/11/21 04:00 61 18 116/55 L 94 08/11/21 02:20 65 16 123/58 L 96 08/11/21 02:05 64 16 123/58 L 94 08/11/21 01:02 63 16 120/61 93 08/11/21 00:30 69 20 114/61 93 08/10/21 23:39 98.4 F 65 19 138/73 93 Recovery Score Activity: Moves 4 extremities Respiration: Deep Breath/Cough Circulation: +/-20% PreAnes Value Consciousness: Fully Awake Oxygen Saturation: O2 needed for >90% Discharge Sedation Level of Care: Fast Track Phase II Post Sedation Plan On clinical assessment, the patient appears to have tolerated the sedation w ithout complications. Patient is recovering as anticipated. Patient will continue to be monitored by nursing and may be discharged when sedation discharge criteria are met per below protocol. Upon Completions of procedure up to 15 minutes continue every 5 minute vital signs and the P.A.R. score; then discharge to a Phase I or Fast Track to Phase II per the following guidelines: * Discharge Patient to appropriate Phase II area if PAR is 8 or greater or return to pre- procedure baseline. The post - procedure orders will be as directed. * If PAR score is less than 8 or not return to pre-procedure baseline then patient will follow Phase I monitoring till PAR is reached for Phase II. The Phase I may be done in procedure room or may call to secure a Phase I area. * If naloxone or flumazenil are used for reversal, hold in Phase I for continued monitoring from when last reversal dose was given for a minimum of 60 minutes or longer pending the nurse and/or physician discretion of patient condition before discharge to Phase II. Please call the Sedation Physician to re-evaluate and complete post-note for discharge to Phase II area. Do NOT discharge from procedure sedation or Phase 1 until post- sedation evaluation note is complete by procedure /sedation MD Sedation Discharge Instructions to be given to the patient at discharge to home.
--- NOTE | 2021-08-11 13:12 | Cardiac Catheterization ---
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 Cardiac Status Clinical evaluation leading to the procedure CAD Presenation: Non STEMI Anginal Classification: CCS IV Heart Failure: No Cardiogenic Shock within 24 Hours: No Cardiac Arrest within 24 Hours: No Imaging Studies Past 6 Months: Yes Stress Studies Past 6 Months: No Diagnostic Physicians Name: Yonatan Monroy MD Status: Elective Closure Device Percutaneous Entry Location: Radial Closure Device: Radial Band Recommendations: PCI without planned CABG PCI Indication: PCI for high risk Non-KETURAH Lesion Segment Name: ostial RCA Culprit Artery: Yes Stenosis Prior to Rx (%): 95 Chronic Total Occlusion: No IVUS: No FFR: No Pre-Procedure PAULINE Flow: 2 Previously Treated Lesion: No Lesion Complexity: High/C Lesion Length (mm): 121 Thrombus Present: Yes Bifurcation Lesion: Yes Guidewire Across Lesion: Stenosis Post-Procedure (%): 0 Post-Procedure PAULINE Flow: 3 Devices(s) Deployed: Yes Yes Intraprocedure Events Significant Disection: No Perforation: No Cardiac Cath Procedure Full Procedure Date August 11, 2021 Pre-Procedure Diagnosis Pre-Procedure Diagnosis: Non STEMI AUC Score AUC Score: 8 Post-Procedure Diagnosis Post-Procedure Diagnosis: Severe CAD and Successful PCI Procedure(s) Performed Procedure(s) Performed: Coronary Angiography and Drug Eluting Stent Cdl Company Driver Yonatan Monroy MD Assistant Shift Supervisor(s) Sj Estimated Blood Loss Estimated Blood Loss: 20 Medication(s) Medication(s): Clopidogrel, Fentanyl, Heparin, Nicardipine, Nitroglycerin and Versed Summary of Findings Indication: NSTEMI Access: 6 Fr right radial artery Catheters: JR4 guide Findings: For full details of patient's coronary angiography please see cath report dictated by Dr. Siddiqui. Briefly, patient found to have severe ostial RCA disease. Decision to proceed with PCI. -- PCI -- Antithrombotic therapy: Heparin, clopidogrel Procedure: RCA cannulated with JR4 guide Initially passed stenosis with agricultural pilot 50 wire but unable to navigate into distal vessel due to tortuosity Using long Corsair microcatheter, whisper wire placed into distal PLB Ostial RCA dilated with 2.5 and 3.0 balloon Initially unable to pass stent across stenosis Ostial RCA lesion predilated with 3.0 balloon. Telescope support catheter placed across ostial lesion into proximal RCA Dilated lesion stented with 3.25 x 15 mm Xience drug-eluting stent Stent post-dilated with 3.5 noncompliant balloon Post procedure PAULINE 3 flow, stent well expanded with minimal residual stenosis and no apparent cardiac complications. Arterial Closure: TR band Summary: 1. Successful PCI of ostial RCA with single drug-eluting stent (3.25 x 15 mm Xience; postdilated with 3.5 NC) Recommendations: To PCU for continued monitoring Loaded with clopidogrel 600 mg in catheter Continue dual-antiplatelet therapy for at least 1 year Continue IV hydration for contrast nephropathy prevention Consult cardiac Rehab Hemodynamics Rest Ao:: 121/44/77 Final Ao: 123/50/92 LV: -- Recommendations Recommendations: PCI without planned CABG Specimens Specimens: None Radiation Exposure (mGy) 2942 Contrast (mls) 70 (Visi, total) Fluids (cc crystalloids) Fluids (cc crystalloids): 464 Drains Drains: None Anesthesia Moderate 6361-6109 Procedural Complication(s) None Disposition PCU I attest to the content of the Intraoperative Record and any orders documented therein. Any exceptions are noted below. [facility] Card Cath Procedure Codes Moderate Sedation Procedure 1: Sedation/Anesthesia: 50606 Mod Sedation by the same physician; Ea [id number] Minutes Stenting Procedure 1: Cardiovascular Stent Procedures: 07691 Perc transcatheter placement of intracoronary stent(s), with ang PG Care Time/CCT Total # of Minutes Spent Total Time Spent with Patient: Total time spent is greater than 50% in coordination of care (as documented) at patient's floor/unit and/or counseling patient:
[2021-08-11] MEDS ORDERED: SODIUM CHLORIDE 0.9% 1000ML 1,000 ML IV SCH (13:15)
--- NOTE | 2021-08-11 16:44 | Hospitalist Progress Note ---
Date of Service August 11, 2021 Assessment & Plan (1) NSTEMI (non-ST elevated myocardial infarction): Plan: 85yo male with HTN, HLP presenting with retrosternal chest discomfort, ST depressions present initially by report, troponin is elevated at 0.57 (with history of prior troponin elevations 0.440 - 0.570) since November 2020. Cr was 2.33 on admit Trop elevated 0.771 on repeat, seen by cardiology and taken for cardiac cath s/p Successful PCI of ostial RCA with single drug-eluting stent (3.25 x 15 mm Xience; postdilated with 3.5 NC) Placed on DAPT ASA/Plavix x 1 year (was on aggrenox prior for hx CVA 10 yrs ago) Lipid panel, A1c in AM. If total cholesterol <100 would continue current dose statin, otherwise would increase for prevention Held HCTZ/telmisartan (was given) given Cr 2.3 and will hold for AM, resume telmisartan in AM if able, HCTZ day following IVF per cardiology post-operatively No further CP Monitor overnight, possible d/c in AM and will need outpt f/u cardiology (2) Retrosternal chest pain: Plan: 2nd to above (3) GERD (gastroesophageal reflux disease): Plan: Chronic. Controlled -Continue Famotidine 40mg po BID (4) Hyperlipidemia: Plan: Chronic -Continue Atorvastatin 10mg for now, lipid panel in AM (5) Hypertension: Plan: Chronic. Blood pressure 123/58 -Continue Telmisartan/HCTZ (placed on hold given Cr 2.3 on admit with baseline <2 and went to laboratory aide) Resume when able, BMP in AM (6) Dementia: Plan: Chronic. Patient is able to provide information, follow command, and answers questions appropriately -Continue Namenda, Aricept Seems to do fairly well when seen at bedside with post-cath Plan: monitor overnight Lipid panel, A1c in AM possible d/c in AM Admission and Anticipated Discharge Date Admission Date: August 11, 2021 Supervising Physician Co-Signing Physician Notes PA Supervision Note: I did not personally see or examine the patient today, but I verified all mcmahon points of GUS Soares's assessment and plan with the following exceptions/additions: None Subjective BRIDGE NOTE Patient evaluated after cardiac cath with at bedside. BAYLEE to RCA for 50% occlusion. No further CP. No sob/fever, abdominal pain, headache, nasuea, vomiting or dysuria. Discussed DAPT x 1 year. Of note his son has had stent x 4 to same vessel (most recent last week). Discussed continued monitoring overnight but if continues to be chest pain free/no issues will d/c in AM. Also discussed checking lipid panel and increase statin if needed based on results. Review of Systems Review of Systems: All systems reviewed & are unremarkable except as noted in HPI & below Physical Exam Physical Exam: WD, WN elderly male, looks younger than stated age, up in chair with at bedside, NAD eyes anicteric, pupils equal and reactive lungs CTAB, no w/c/r, 96% on RA CV: RRR, no m/r/g, no calf edema or tenderness GI: +BS, soft, non-tender Skin: cool, dry. badage over cath site, no bleeding observed Results & Data Results & Data ([facility]) Vital Signs (Past 12 Hours) Vital Signs Temp Pulse Resp BP Pulse Ox 08/11/21 15:15 69 20 130/68 96 08/11/21 15:00 65 20 131/65 93 08/11/21 14:45 63 20 130/66 98 08/11/21 14:30 59 L 20 127/66 96 08/11/21 14:15 69 20 137/68 97 08/11/21 14:00 63 20 139/65 96 08/11/21 13:45 60 20 123/60 94 08/11/21 13:30 61 20 135/60 97 08/11/21 13:15 56 L 20 142/58 H 95 08/11/21 13:00 65 20 153/62 H 97 08/11/21 10:44 65 18 130/66 97 08/11/21 07:31 36.7 C 61 18 109/67 96 08/11/21 06:00 59 L 18 123/61 98 Laboratory Results 08/11/21 08/11/21 08/11/21 Range/Units 12:57 12:13 11:41 WBC (4.8-10.8) K/uL RBC (4.7-6.1) M/uL Hgb (14.0-18.0) g/dL Hct (42-52) % MCV (80-100) fL MCH (25-34) pg MCHC (32-36) g/dL RDW Std Deviation (36.4-46.3) fL RDW Coeff of Matt (11.5-14.5) % Plt Count (130-400) K/uL MPV (7.4-10.4) fL Immature Gran % (Auto) % Neut % (Auto) % Lymph % (Auto) % Nicholas % (Auto) % Eos % (Auto) % Baso % (Auto) % Neut # (Auto) (1.4-6.5) K/uL Lymph # (Auto) (1.2-3.4) K/uL Nicholas # (Auto) (0.11-0.59) K/uL Eos # (Auto) (0-0.5) K/uL Baso # (Auto) (0-0.2) K/uL Immature Gran # (Auto) (0.00-0.02) K/uL Activ Coag Time Kaolin 249 H 225 H 175 H (94-140) SECONDS Sodium (136-145) mmol/L Potassium (3.5-5.1) mmol/L Chloride (98-107) mmol/L Carbon Dioxide (21-32) mmol/L Anion Gap (3-11) BUN (7-18) mg/dl Creatinine (0.6-1.4) mg/dl Est Cr Clr Drug Dosing Est GFR ( Amer) ml/min Est GFR (Non-Af Amer) ml/min BUN/Creatinine Ratio (10-20) Glucose (70-99) mg/dl Calcium (8.5-10.1) mg/dl Magnesium (1.8-2.4) mg/dl Total Bilirubin (0.2-1) mg/dl AST (15-37) U/L ALT (12-78) U/L Alkaline Phosphatase (45-117) U/L Troponin I (0-0.045) ng/ml Total Protein (6.4-8.2) gm/dl Albumin (3.4-5.0) gm/dl Globulin (2.5-4.0) gm/dl Albumin/Globulin Ratio (0.9-2) Lipase (73-393) U/L Lyme Disease IgG Ab (Negative) Lyme Disease IgM Ab (Negative) SARS-CoV-2, RNA, NAAT (NEGATIVE) 08/11/21 08/11/21 08/11/21 Range/Units 06:07 06:07 06:07 WBC 5.96 (4.8-10.8) K/uL RBC 3.75 L (4.7-6.1) M/uL Hgb 12.3 L (14.0-18.0) g/dL Hct 37.0 L (42-52) % MCV 98.7 (80-100) fL MCH 32.8 (25-34) pg MCHC 33.2 (32-36) g/dL RDW Std Deviation 45.2 (36.4-46.3) fL RDW Coeff of Matt 12.5 (11.5-14.5) % Plt Count 162 (130-400) K/uL MPV 10.8 H (7.4-10.4) fL Immature Gran % (Auto) 0.2 % Neut % (Auto) 63.2 % Lymph % (Auto) 18.8 % Nicholas % (Auto) 14.3 % Eos % (Auto) 3.0 % Baso % (Auto) 0.5 % Neut # (Auto) 3.77 (1.4-6.5) K/uL Lymph # (Auto) 1.12 L (1.2-3.4) K/uL Nicholas # (Auto) 0.85 H (0.11-0.59) K/uL Eos # (Auto) 0.18 (0-0.5) K/uL Baso # (Auto) 0.03 (0-0.2) K/uL Immature Gran # (Auto) 0.01 (0.00-0.02) K/uL Activ Coag Time Kaolin (94-140) SECONDS Sodium 138 (136-145) mmol/L Potassium 4.3 (3.5-5.1) mmol/L Chloride 109 H (98-107) mmol/L Carbon Dioxide 24 (21-32) mmol/L Anion Gap 5.0 (3-11) BUN 44 H (7-18) mg/dl Creatinine 1.96 H D (0.6-1.4) mg/dl Est Cr Clr Drug Dosing 29.7 Est GFR ( Amer) 34.9 ml/min Est GFR (Non-Af Amer) 30.1 ml/min BUN/Creatinine Ratio 22.7 H (10-20) Glucose 104 H (70-99) mg/dl Calcium 9.0 (8.5-10.1) mg/dl Magnesium 2.5 H (1.8-2.4) mg/dl Total Bilirubin (0.2-1) mg/dl AST (15-37) U/L ALT (12-78) U/L Alkaline Phosphatase (45-117) U/L Troponin I 0.771 H* (0-0.045) ng/ml Total Protein (6.4-8.2) gm/dl Albumin (3.4-5.0) gm/dl Globulin (2.5-4.0) gm/dl Albumin/Globulin Ratio (0.9-2) Lipase (73-393) U/L Lyme Disease IgG Ab Negative (Negative) Lyme Disease IgM Ab Negative (Negative) SARS-CoV-2, RNA, NAAT (NEGATIVE) 08/11/21 08/10/21 08/10/21 Range/Units 00:02 23:42 23:42 WBC 7.83 (4.8-10.8) K/uL RBC 3.93 L (4.7-6.1) M/uL Hgb 13.1 L (14.0-18.0) g/dL Hct 38.7 L (42-52) % MCV 98.5 (80-100) fL MCH 33.3 (25-34) pg MCHC 33.9 (32-36) g/dL RDW Std Deviation 44.9 (36.4-46.3) fL RDW Coeff of Matt 12.5 (11.5-14.5) % Plt Count 176 (130-400) K/uL MPV 10.8 H (7.4-10.4) fL Immature Gran % (Auto) 0.1 % Neut % (Auto) 65.0 % Lymph % (Auto) 22.0 % Nicholas % (Auto) 10.3 % Eos % (Auto) 2.2 % Baso % (Auto) 0.4 % Neut # (Auto) 5.09 (1.4-6.5) K/uL Lymph # (Auto) 1.72 (1.2-3.4) K/uL Nicholas # (Auto) 0.81 H (0.11-0.59) K/uL Eos # (Auto) 0.17 (0-0.5) K/uL Baso # (Auto) 0.03 (0-0.2) K/uL Immature Gran # (Auto) 0.01 (0.00-0.02) K/uL Activ Coag Time Kaolin (94-140) SECONDS Sodium 138 (136-145) mmol/L Potassium 4.1 (3.5-5.1) mmol/L Chloride 109 H (98-107) mmol/L Carbon Dioxide 26 (21-32) mmol/L Anion Gap 3.0 (3-11) BUN 51 H (7-18) mg/dl Creatinine 2.33 H (0.6-1.4) mg/dl Est Cr Clr Drug Dosing Not Reportable Est GFR ( Amer) 28.3 ml/min Est GFR (Non-Af Amer) 24.4 ml/min BUN/Creatinine Ratio 21.7 H (10-20) Glucose 94 (70-99) mg/dl Calcium 9.1 (8.5-10.1) mg/dl Magnesium (1.8-2.4) mg/dl Total Bilirubin 0.3 (0.2-1) mg/dl AST 18 (15-37) U/L ALT 26 (12-78) U/L Alkaline Phosphatase 69 (45-117) U/L Troponin I 0.570 H* (0-0.045) ng/ml Total Protein 6.9 (6.4-8.2) gm/dl Albumin 3.1 L (3.4-5.0) gm/dl Globulin 3.8 (2.5-4.0) gm/dl Albumin/Globulin Ratio 0.8 L (0.9-2) Lipase 303 (73-393) U/L Lyme Disease IgG Ab (Negative) Lyme Disease IgM Ab (Negative) SARS-CoV-2, RNA, NAAT NEGATIVE (NEGATIVE) Diagnostic Findings Chest X-Ray 08/10/21 23:18 XR chest 1V portable HISTORY: Atypical Chest Pain COMPARISON: Chest 06/13/2021. FINDINGS: No pneumothorax. No pleural effusions. No new focal lung consolidations to suggest pneumonia. No evidence for pulmonary edema. There is emphysema with biapical chronic interstitial thickening. This remains unchanged. The cardiac silhouette remains mildly enlarged. Small nodular densities within the right lung base correspond to calcification within the overlying anterior rib. IMPRESSION: Emphysema with chronic interstitial changes. No acute process within the chest. ACT 112: Negative or not required by law. Electronically signed by: Daniel Treadwell M.D. 08/11/2021 7:30 AM PG Care Time/CCT Total # of Minutes Spent Total Time Spent with Patient: Total time spent is greater than 50% in coordination of care (as documented) at patient's floor/unit and/or counseling patient: Coding Level of Care Code None Diagnoses Retrosternal chest pain R07.2 GERD (gastroesophageal reflux disease) K21.9 Hyperlipidemia E78.5 Hypertension I10 Dementia F03.90 NSTEMI (non-ST elevated myocardial infarction) I21.4
[2021-08-11] MEDS ORDERED: DONEPEZIL HCL 10 MG TAB PO SCH (21:00)
[2021-08-12 07:03] LABS: Basophils # (auto) 0.02 K/uL (0-0.2); Basophils % (auto) 0.4 %; Eosinophils # (auto) 0.21 K/uL (0-0.5); Eosinophils % (auto) 3.8 %; Hematocrit (blood only) 38.1 % (42-52); Hemoglobin 12.7 g/dL (14.0-18.0); Lymphocytes # (auto) 1.24 K/uL (1.2-3.4); Lymphocytes % (auto) 22.7 %; Mean Corpuscular Hemoglobin 32.7 pg (25-34); Mean Corpuscular Hgb Conc 33.3 g/dL (32-36); Mean Corpuscular Volume 98.2 fL (80-100); Mean Platelet Volume 10.3 fL (7.4-10.4); Monocytes # (auto) 0.83 K/uL (0.11-0.59); Monocytes % (auto) 15.2 %; Neutrophils # (auto) 3.17 K/uL (1.4-6.5); Neutrophils % (auto) 57.9 %; Platelet Count 147 K/uL (130-400); RDW Coefficient of Variation 12.4 % (11.5-14.5); RDW Standard Deviation 44.7 fL (36.4-46.3); Red Blood Count 3.88 M/uL (4.7-6.1); White Blood Count 5.47 K/uL (4.8-10.8)
[2021-08-12 07:36] LABS: BUN Creatinine Ratio 18.5 (10-20); Calcium 9.1 mg/dl (8.5-10.1); Creatinine Clr Calc Pharmacy 35.3 ml/min; Est GFR (African American) 42.9 ml/min; Potassium 4.2 mmol/L (3.5-5.1)
[2021-08-12] MEDS: MEMANTINE HCL 5 MG TAB PO SCH (07:52)
[2021-08-12] MEDS: TAMSULOSIN HCL 0.4 MG CAP PO SCH (07:52)
[2021-08-12] MEDS: ATORVASTATIN 10 MG TAB PO SCH (07:53)
[2021-08-12 08:15] LABS: Estimated Average Glucose 128 mg/dl; Hemoglobin A1C 6.1 % (4.5-5.6)
--- NOTE | 2021-08-12 08:16 | Hospitalist Progress Note ---
Date of Service August 12, 2021 Assessment & Plan Admission and Anticipated Discharge Date Admission Date: August 11, 2021 Results & Data Results & Data ([facility]) Vital Signs (Past 12 Hours) Vital Signs Temp Pulse Resp BP Pulse Ox 08/12/21 07:51 36.7 C 75 17 133/74 93 08/12/21 05:38 36.8 C 68 14 125/68 94 08/11/21 23:26 38.0 C H 72 16 146/71 H 95 Laboratory Results 08/12/21 08/12/21 08/12/21 Range/Units 06:48 06:48 06:48 WBC 5.47 (4.8-10.8) K/uL RBC 3.88 L (4.7-6.1) M/uL Hgb 12.7 L (14.0-18.0) g/dL Hct 38.1 L (42-52) % MCV 98.2 (80-100) fL MCH 32.7 (25-34) pg MCHC 33.3 (32-36) g/dL RDW Std Deviation 44.7 (36.4-46.3) fL RDW Coeff of Matt 12.4 (11.5-14.5) % Plt Count 147 (130-400) K/uL MPV 10.3 (7.4-10.4) fL Immature Gran % (Auto) 0.0 % Neut % (Auto) 57.9 % Lymph % (Auto) 22.7 % Irwin % (Auto) 15.2 % Eos % (Auto) 3.8 % Baso % (Auto) 0.4 % Neut # (Auto) 3.17 (1.4-6.5) K/uL Lymph # (Auto) 1.24 (1.2-3.4) K/uL Irwin # (Auto) 0.83 H (0.11-0.59) K/uL Eos # (Auto) 0.21 (0-0.5) K/uL Baso # (Auto) 0.02 (0-0.2) K/uL Immature Gran # (Auto) 0.00 (0.00-0.02) K/uL Activ Coag Time Kaolin (94-140) SECONDS Sodium 136 (136-145) mmol/L Potassium 4.2 (3.5-5.1) mmol/L Chloride 107 (98-107) mmol/L Carbon Dioxide 24 (21-32) mmol/L Anion Gap 5.0 (3-11) BUN 30 H (7-18) mg/dl Creatinine 1.65 H D (0.6-1.4) mg/dl Est Cr Clr Drug Dosing 35.3 ml/min Est GFR ( Amer) 42.9 ml/min Est GFR (Non-Af Amer) 37.0 ml/min BUN/Creatinine Ratio 18.5 (10-20) Glucose 88 (70-99) mg/dl Estimat Average Glucose Pending Hemoglobin A1c Pending Calcium 9.1 (8.5-10.1) mg/dl Triglycerides 89 (0-150) mg/dl Cholesterol 98 (0-200) mg/dl LDL Cholesterol, Calc 39 mg/dl VLDL Cholesterol, Calc 18 mg/dl HDL Cholesterol 41 mg/dl Cholesterol/HDL Ratio 2 Lyme Disease IgG Ab (Negative) Lyme Disease IgM Ab (Negative) 08/11/21 08/11/21 08/11/21 Range/Units 12:57 12:13 11:41 WBC (4.8-10.8) K/uL RBC (4.7-6.1) M/uL Hgb (14.0-18.0) g/dL Hct (42-52) % MCV (80-100) fL MCH (25-34) pg MCHC (32-36) g/dL RDW Std Deviation (36.4-46.3) fL RDW Coeff of Matt (11.5-14.5) % Plt Count (130-400) K/uL MPV (7.4-10.4) fL Immature Gran % (Auto) % Neut % (Auto) % Lymph % (Auto) % Irwin % (Auto) % Eos % (Auto) % Baso % (Auto) % Neut # (Auto) (1.4-6.5) K/uL Lymph # (Auto) (1.2-3.4) K/uL Irwin # (Auto) (0.11-0.59) K/uL Eos # (Auto) (0-0.5) K/uL Baso # (Auto) (0-0.2) K/uL Immature Gran # (Auto) (0.00-0.02) K/uL Activ Coag Time Kaolin 249 H 225 H 175 H (94-140) SECONDS Sodium (136-145) mmol/L Potassium (3.5-5.1) mmol/L Chloride (98-107) mmol/L Carbon Dioxide (21-32) mmol/L Anion Gap (3-11) BUN (7-18) mg/dl Creatinine (0.6-1.4) mg/dl Est Cr Clr Drug Dosing ml/min Est GFR ( Amer) ml/min Est GFR (Non-Af Amer) ml/min BUN/Creatinine Ratio (10-20) Glucose (70-99) mg/dl Estimat Average Glucose Hemoglobin A1c Calcium (8.5-10.1) mg/dl Triglycerides (0-150) mg/dl Cholesterol (0-200) mg/dl LDL Cholesterol, Calc mg/dl VLDL Cholesterol, Calc mg/dl HDL Cholesterol mg/dl Cholesterol/HDL Ratio Lyme Disease IgG Ab (Negative) Lyme Disease IgM Ab (Negative) 08/11/21 Range/Units 06:07 WBC (4.8-10.8) K/uL RBC (4.7-6.1) M/uL Hgb (14.0-18.0) g/dL Hct (42-52) % MCV (80-100) fL MCH (25-34) pg MCHC (32-36) g/dL RDW Std Deviation (36.4-46.3) fL RDW Coeff of Matt (11.5-14.5) % Plt Count (130-400) K/uL MPV (7.4-10.4) fL Immature Gran % (Auto) % Neut % (Auto) % Lymph % (Auto) % Irwin % (Auto) % Eos % (Auto) % Baso % (Auto) % Neut # (Auto) (1.4-6.5) K/uL Lymph # (Auto) (1.2-3.4) K/uL Irwin # (Auto) (0.11-0.59) K/uL Eos # (Auto) (0-0.5) K/uL Baso # (Auto) (0-0.2) K/uL Immature Gran # (Auto) (0.00-0.02) K/uL Activ Coag Time Kaolin (94-140) SECONDS Sodium (136-145) mmol/L Potassium (3.5-5.1) mmol/L Chloride (98-107) mmol/L Carbon Dioxide (21-32) mmol/L Anion Gap (3-11) BUN (7-18) mg/dl Creatinine (0.6-1.4) mg/dl Est Cr Clr Drug Dosing ml/min Est GFR ( Amer) ml/min Est GFR (Non-Af Amer) ml/min BUN/Creatinine Ratio (10-20) Glucose (70-99) mg/dl Estimat Average Glucose Hemoglobin A1c Calcium (8.5-10.1) mg/dl Triglycerides (0-150) mg/dl Cholesterol (0-200) mg/dl LDL Cholesterol, Calc mg/dl VLDL Cholesterol, Calc mg/dl HDL Cholesterol mg/dl Cholesterol/HDL Ratio Lyme Disease IgG Ab Negative (Negative) Lyme Disease IgM Ab Negative (Negative) PG Care Time/CCT Total # of Minutes Spent Total Time Spent with Patient: Total time spent is greater than 50% in coordination of care (as documented) at patient's floor/unit and/or counseling patient: Coding
[2021-08-12] MEDS ORDERED: ASPIRIN 81 MG ECTAB PO SCH (09:00)
[2021-08-12] MEDS ORDERED: CLOPIDOGREL BISULFATE 75 MG TAB PO SCH (09:00)
--- NOTE | 2021-08-12 09:33 | XRay Report ---
XR chest 1V portable CLINICAL HISTORY: fever COMPARISON STUDY: Chest CT June 19, 2021. Chest radiograph August 10, 2021. FINDINGS: Lung volumes are normal. Lungs are clear. There is no pneumothorax or pleural effusion. Car diac size is normal. Mediastinal contours are normal. There is no evidence for pulmonary edema. Inter stitial thickening is unchanged and likely chronic. There is biapical scarring. IMPRESSION: No acute cardiopulmonary findings. No change in appearance of the chest. ACT 112: Negative or not required by law. Electronically signed by: Bereket Baldwin M.D. 08/12/2021 9:32 AM
[2021-08-12] MEDS: FAMOTIDINE 40 MG TABLET PO SCH (10:00)
[2021-08-12] MEDS: TELMISARTAN 40 MG TAB PO SCH (10:00)
--- NOTE | 2021-08-12 12:09 | Discharge Summary ---
Date of Service August 12, 2021 Admission HPI Per Admitting Provider Chief Complaint: chest pain Primary Care Provider: Pino Tucker MD Sudeep Valencia is an 85yo male with history of HTN, HLP presenting with substernal chest pain. Pain started last night around 21:00 while patient was at rest, upper chest with radiation to bilateral shoulders, 5/10 in severity. Pain was relieved by ASA and Fentanyl administered by EMS. Patient reports intermittent chest discomfort ongoing for the last several months. Prior episodes of chest discomfort are similar to the discomfort he felt prior to arrival. Prior episodes have mostly occurred with exertion - yard work, walking, and have been relieved with brief episodes of rest. Tonight is the first time patient experienced chest pain while at rest. Presently with no complaints of chest pain. Patient was admitted in November 2020 for similar complaints. He had a stress echo performed on 11/30/20 which was negative for inducible ischemia. He has an Cardiology appointment arranged with Dr. Linda from 08/24/21 Patient's Covid-19 test is NEGATIVE. He is vaccinated against Covid-19 and received his booster vaccine yesterday Admission Exam Per Admitting Provider General: patient resting comfortably, NAD, non-toxic in appearance, AA&O x 4 Skin: warm, dry, intact, no rashes or lesions HEENT: NC/AT, PERRL, EOMI, anicteric sclera, conjunctiva without injection, external ear normal to inspection and nontender, nares patent, moist mucus membranes, dentition intact, no oropharyngeal lesions, neck supple, trachea midline, no LAD, no thyromegaly, no JVD Heart: +S1/S2, regular, no m/r/g Lungs: equal air entry bilaterally, no rales/rhonchi/wheezes Abd: +BS, soft, NT/ND, no masses/organomegaly/ascites Ext: warm, 2+ pulses in UE/LE bilaterally, no clubbing/cyanosis or edema Neuro: nonfocal, patient AA&O x 4, speech intact, no facial droop, moving all extremities on command with equal strength 5/5 Principal Diagnosis NSTEMI Discharge Exam WD, WN elderly male, looks younger than stated age, up in chair with at bedside, NAD eyes anicteric, pupils equal and reactive lungs CTAB, no wheezing, accessory muscle use, tachypnea, rales to RML/R posterior lung field, no cough, 96% on RA CV: RRR, no m/r/g, no calf edema or tenderness GI: +BS, soft, non-tender Skin: cool, dry. bandage over cath site, no bleeding observed Discharge Data Allergies Allergy/AdvReac Type Severity Reaction Status Date / Time No Known Allergies Allergy Mild Verified 08/11/21 00:17 Consultations 08/11/21 00:41 ED Decision to Admit Stat 08/11/21 02:06 Consult Cardiology Routine 08/11/21 13:14 Consult Cardiac Rehabilitation Routine Procedures Performed Operation Date: 08/11/21 11:00 Actual Procedures p Cath, Left with Cors and Vent - Carl Siddiqui MD s Drug Eluting Stent SGl Vessel - Carl Monroy MD s Cineradiography w/Routine Exam - Carl Siddiqui MD Ordered Studies 08/11/21 09:05 CL Cath Imgs for PACS use only Routine Hospital Course (1) NSTEMI (non-ST elevated myocardial infarction): 85yo male with HTN, HLP presenting with retrosternal chest discomfort, ST depressions present initially by report, troponin is elevated at 0.57 (with history of prior troponin elevations 0.440 - 0.570) since November 2020. Cr was 2.33 on admit Trop elevated 0.771 on repeat, seen by cardiology and taken for cardiac cath s/p Successful PCI of ostial RCA with single drug-eluting stent (3.25 x 15 mm Xience; postdilated with 3.5 NC) Placed on DAPT ASA/Plavix x 1 year (was on aggrenox prior for hx CVA 10 yrs ago) Lipid panel, A1c in AM. iNCREASED STATIN 40MG Held HCTZ/telmisartan (was given) given Cr 2.3 and will hold for AM, resume telmisartan in AM if able, HCTZ day following IVF per cardiology post-operatively No further CP Monitor overnight, possible d/c in AM and will need outpt f/u cardiology TEMP 38C OVERNIGHT -- NO URINARY SYMPTOMS OR COUGH/SPUTUM BUT DID HAVE RHONCHI. PATIENT FEELING READY FOR D/C NO FURTHER ISSUES. F OBTAINED BLOOD CULTURES AND WILL CALL IF POSITIVE BUT RETURN IF CONTINUED ISSUES/REPEAT FEVER (2) Retrosternal chest pain: 2nd to above (3) GERD (gastroesophageal reflux disease): Chronic. Controlled -Continue Famotidine 40mg po BID (4) Hyperlipidemia: Chronic -Continue Atorvastatin 10mg for now, lipid panel in AM (5) Hypertension: Chronic. Blood pressure 123/58 -Continue Telmisartan/HCTZ (placed on hold given Cr 2.3 on admit with baseline <2 and went to label operator) Resume when able, BMP in AM (6) Dementia: Chronic. Patient is able to provide information, follow command, and answers questions appropriately -Continue Namenda, Aricept Seems to do fairly well when seen at bedside with post-cath monitor overnight Lipid panel, A1c in AM possible d/c in AM Discharge Plan Discharge Items Patient Disposition: Home - Self-Care Reason For Visit: Chest Pain Discharge Diagnosis: NSTEMI Goals: You have been hospitalized for an urgent problem which required surgery. During your stay at [facility], we have made an effort to correct the problem that brought you to the hospital while keeping you as comfortable as possible. Surgery and medications were used to bring your condition under control and your discharge instructions will include directions for any medications you should take after leaving the hospital. Please make sure to follow the advice of your surgeon regarding follow up with the surgeon and with your primary care provider. Activity: Resume your previous activity Non-emergency contact: Primary Care Provider and Education Reporter Call non-emergency contact if: you have any medication questions, your symptoms worsen and your pain is not controlled Follow-up/Referrals: Carl Monroy MD [Physician] - (1 month) Pino Tucker MD [Primary Care Provider] - Diet: Heart Healthy Addtl Attending Provider Instructions: You have been hospitalized for chest pain and cardiology was consulted given elevated troponin and changes on your EKG. You were taken to the cardiac label operator and found to have a blockage in your RCA (right coronary artery) that was able to be treated with a stent. You will need to continue ASPIRIN 81mg and Plavix 75mg BY MOUTH ONCE DAILY for 1 YEAR! You will need follow up of A1c as drawn during hospital as this was in the pre- diabetic range but can be monitored and if continues with elevation in next couple of months would recommend starting treatment. Your lipid panel was checked and your cholesterol was controlled, but given the now known coronary artery disease, your atorvastatin is being increased to 40mg by mouth once daily. You should follow up with your PCP and Cardiology in the next 1-2 weeks to monitor your progress. YOU HAVE BEEN PROVIDED SUBLINGUAL NITROGLYCERIN TO USE NEEDED FOR CHEST PAIN. DO NOT TAKE THIS MEDICATION IF YOU HAVE TAKEN YOUR SILDENAFIL (VIAGRA) THIS CAN CAUSE HYPOTENSION/ WHEN COMBINED. You did have an isolated fever while in the hospital. No further issues and CXR without evidence of pneumonia but you did have some abnormal breath sounds, but no need for oxygen or cough/sputum production. Blood cultures were obtained prior to discharge and you will be called if any issues arise. Please return to the emergency department with any fever, chest pain, shortness of breath, weakness, or for any other symptoms that are concerning for you. Take care! Pending Studies at Discharge: Yes Studies:: BLOOD CULTURES Stand-Alone Forms: My [facility] Medications and DC Order Prescriptions: New clopidogrel 75 mg Tablet 75 mg PO QAM 30 Days Qty: 30 RF: 3 aspirin 81 mg Tablet,Delayed Release (Dr/Ec) 81 mg PO QAM 30 Days Qty: 30 RF: 0 nitroglycerin [Nitrostat] 0.4 mg Tablet, Sublingual 0.4 mg sublingual PRN PRN (Reason: chest pain) Qty: 15 RF: 0 Continued tamsulosin 0.4 mg capsule 0.4 mg PO BID Qty: 60 RF: 0 telmisartan-hydrochlorothiazid [Micardis HCT] 40-12.5 mg tablet 1 tab PO DAILY RF: 0 sildenafil 100 mg tablet 100 mg PO UD PRN (Reason: Erectile Dysfunction) RF: 0 memantine [Namenda] 10 mg tablet 5 mg PO BID RF: 0 famotidine 40 mg tablet 40 mg PO BID Qty: 0 RF: 0 donepezil 10 mg Tablet 10 mg PO QPM RF: 0 vitamin A-vitamin C-vit E-min Tablet 1 tab PO QAM RF: 0 Glucosamine Chondroitin 550-30-1 mg Capsule 1 cap PO QAM RF: 0 ascorbic acid (vitamin C) [Vitamin C] 500 mg Tablet 0 mg PO DAILY RF: 0 ferrous sulfate 325 mg (65 mg iron) Tablet 325 mg PO DAILY RF: 0 cholecalciferol (vitamin D3) [Vitamin D3] 25 mcg (1,000 unit) Capsule 50 mcg PO DAILY RF: 0 Changed atorvastatin 10 mg tablet 40 mg PO QAM Qty: 30 RF: 0 Discontinued aspirin-dipyridamole 25-200 mg capsule, ER multiphase 12 hr 1 cap PO BID RF: 0 Discharge Orders: Discharge Order (Routine); Ordered 08/12/21 Ordered By: Kristin Soares Admission Data Admit Date/Time: 08/11/21 01:40 Attending Provider: Meredith Mccartney Admit Provider: Jazmin Hernandez Primary Care Provider: Pino Tucker Other Providers: Jazmin Hernandez ; Terrence Barrett Coding Diagnoses NSTEMI (non-ST elevated myocardial infarction) I21.4 Retrosternal chest pain R07.2 GERD (gastroesophageal reflux disease) K21.9 Hyperlipidemia E78.5 Hypertension I10 Dementia F03.90
--- NOTE | 2021-08-12 12:15 | Electrocardiogram Report ---
Test Reason : Blood Pressure : / mmHG Vent. Rate : 070 BPM Atrial Rate : 070 BPM P-R Int : 170 ms QRS Dur : 076 ms QT Int : 404 ms P-R-T Axes : 050 017 060 degrees QTc Int : 436 ms Normal sinus rhythm Normal ECG When compared with ECG of 10-AUG-2021 23:39, Premature atrial complexes are no longer Present VA interval has decreased Confirmed by Terrence Barrett ([id number]) on 08/12/2021 12:14:58 PM Referred By: REFERRED SELF Confirmed By:Terrence Barrett
--- NOTE | 2021-08-12 20:43 | Discharge Summary ---
Date of Service August 12, 2021 Admission HPI Per Admitting Provider Chief Complaint: chest pain Primary Care Provider: Pino Tucker MD Sudeep Valencia is an 85yo male with history of HTN, HLP presenting with substernal chest pain. Pain started last night around 21:00 while patient was at rest, upper chest with radiation to bilateral shoulders, 5/10 in severity. Pain was relieved by ASA and Fentanyl administered by EMS. Patient reports intermittent chest discomfort ongoing for the last several months. Prior episodes of chest discomfort are similar to the discomfort he felt prior to arrival. Prior episodes have mostly occurred with exertion - yard work, walking, and have been relieved with brief episodes of rest. Tonight is the first time patient experienced chest pain while at rest. Presently with no complaints of chest pain. Patient was admitted in November 2020 for similar complaints. He had a stress echo performed on 11/30/20 which was negative for inducible ischemia. He has an Cardiology appointment arranged with Dr. Linda from 08/24/21 Patient's Covid-19 test is NEGATIVE. He is vaccinated against Covid-19 and received his booster vaccine yesterday Principal Diagnosis NSTEMI Discharge Exam In general he is awake and alert oriented, pleasant no distress. HEENT normocephalic atraumatic mucous membranes are moist. Breathing unlabored no accessory muscle use, he does have faint rhonchi right midlung but otherwise no other rales rhonchi or wheezes good effort no accessory muscle use, no conversational dyspnea. Neuro without focal deficits. Skin without rashes, pallor, icterus. Discharge Data Allergies Allergy/AdvReac Type Severity Reaction Status Date / Time No Known Allergies Allergy Mild Verified 08/11/21 00:17 Consultations 08/11/21 00:41 ED Decision to Admit Stat 08/11/21 02:06 Consult Cardiology Routine 08/11/21 13:14 Consult Cardiac Rehabilitation Routine Procedures Performed Operation Date: 08/11/21 11:00 Actual Procedures p Cath, Left with Cors and Vent - Carl Siddiqui MD s Drug Eluting Stent SGl Vessel - Carl Monroy MD s Cineradiography w/Routine Exam - Carl Siddiqui MD Ordered Studies 08/11/21 09:05 CL Cath Imgs for PACS use only Routine Hospital Course (1) NSTEMI (non-ST elevated myocardial infarction): 85yo male with HTN, HLP presenting with retrosternal chest discomfort, ST depressions present initially by report, troponin is elevated at 0.57 (with history of prior troponin elevations 0.440 - 0.570) since November 2020. Cr was 2.33 on admit Trop elevated 0.771 on repeat, seen by cardiology and taken for cardiac cath s/p Successful PCI of ostial RCA with single drug-eluting stent (3.25 x 15 mm Xience; postdilated with 3.5 NC) Placed on DAPT ASA/Plavix x 1 year (was on aggrenox prior for hx CVA 10 yrs ago) Lipid panel, A1c in AM. iNCREASED STATIN 40MG given his known vascular disease/acute NSTEMI. With his LDL already being low, and his dementia, it is quite reasonable for the long- term to reduce him back to lower dosing once his acute phase has passed Of note, he had a low-grade temperature overnight prior to discharge, is basically asymptomatic. Shows no focal findings consistent with infectionto be safe, blood cultures checked prior to discharge, but patient amenable to going home with us following up the blood cultures and bring him back if there is anything positive, with his mild rhonchi in his right mid lung, I kind of suspect atelectasis or a little bit of mucus, but certainly nothing appears infectious. Patient also instructed, of course, to return should he develop any new symptoms. He is comfortable with this plan. (2) Retrosternal chest pain: 2nd to above (3) GERD (gastroesophageal reflux disease): Chronic. Controlled -Continue Famotidine 40mg po BID (4) Hyperlipidemia: See abovefor now, given NSTEMI, atorvastatin increased to 40 mg for moderate intensity benefithowever, given his age/dementia/LDL already being low, it would be reasonable to look at this as a "course of therapy" acutely surrounding his NSTEMI, with the potential to reduce back to lower dosing over time. (5) Hypertension: Outpatient management/follow-up (6) Dementia: Chronic. Patient is able to provide information, follow command, and answers questions appropriately -Continue Namenda, Aricept stable for home Total Time Total Time Spent Total Time Spent (In Minutes): 30 Discharge Plan Discharge Items Patient Disposition: Home - Self-Care Reason For Visit: Chest Pain Discharge Diagnosis: NSTEMI Goals: You have been hospitalized for an urgent problem which required surgery. During your stay at [facility], we have made an effort to correct the problem that brought you to the hospital while keeping you as comfortable as possible. Surgery and medications were used to bring your condition under control and your discharge instructions will include directions for any medications you should take after leaving the hospital. Please make sure to follow the advice of your surgeon regarding follow up with the surgeon and with your primary care provider. Activity: Resume your previous activity Non-emergency contact: Primary Care Provider and Developmental Services Worker Call non-emergency contact if: you have any medication questions, your symptoms worsen and your pain is not controlled Follow-up/Referrals: Carl Monroy MD [Physician] - (1 month) Pino Tucker MD [Primary Care Provider] - Diet: Heart Healthy Addtl Attending Provider Instructions: You have been hospitalized for chest pain and cardiology was consulted given elevated troponin and changes on your EKG. You were taken to the cardiac label tacker and found to have a blockage in your RCA (right coronary artery) that was able to be treated with a stent. You will need to continue ASPIRIN 81mg and Plavix 75mg BY MOUTH ONCE DAILY for 1 YEAR! You will need follow up of A1c as drawn during hospital as this was in the pre- diabetic range but can be monitored and if continues with elevation in next couple of months would recommend starting treatment. Your lipid panel was checked and your cholesterol was controlled, but given the now known coronary artery disease, your atorvastatin is being increased to 40mg by mouth once daily. You should follow up with your PCP and Cardiology in the next 1-2 weeks to monitor your progress. YOU HAVE BEEN PROVIDED SUBLINGUAL NITROGLYCERIN TO USE NEEDED FOR CHEST PAIN. DO NOT TAKE THIS MEDICATION IF YOU HAVE TAKEN YOUR SILDENAFIL (VIAGRA) THIS CAN CAUSE HYPOTENSION/ WHEN COMBINED. You did have an isolated fever while in the hospital. No further issues and CXR without evidence of pneumonia but you did have some abnormal breath sounds, but no need for oxygen or cough/sputum production. Blood cultures were obtained prior to discharge and you will be called if any issues arise. Please return to the emergency department with any fever, chest pain, shortness of breath, weakness, or for any other symptoms that are concerning for you. Take care! Pending Studies at Discharge: Yes Studies:: BLOOD CULTURES Stand-Alone Forms: [facility] Medications and DC Order Prescriptions: New clopidogrel 75 mg Tablet 75 mg PO QAM 30 Days Qty: 30 RF: 3 aspirin 81 mg Tablet,Delayed Release (Dr/Ec) 81 mg PO QAM 30 Days Qty: 30 RF: 0 nitroglycerin [Nitrostat] 0.4 mg Tablet, Sublingual 0.4 mg sublingual PRN PRN (Reason: chest pain) Qty: 15 RF: 0 Continued tamsulosin 0.4 mg capsule 0.4 mg PO BID Qty: 60 RF: 0 telmisartan-hydrochlorothiazid [Micardis HCT] 40-12.5 mg tablet 1 tab PO DAILY RF: 0 sildenafil 100 mg tablet 100 mg PO UD PRN (Reason: Erectile Dysfunction) RF: 0 memantine [Namenda] 10 mg tablet 5 mg PO BID RF: 0 famotidine 40 mg tablet 40 mg PO BID Qty: 0 RF: 0 donepezil 10 mg Tablet 10 mg PO QPM RF: 0 vitamin A-vitamin C-vit E-min Tablet 1 tab PO QAM RF: 0 Glucosamine Chondroitin 550-30-1 mg Capsule 1 cap PO QAM RF: 0 ascorbic acid (vitamin C) [Vitamin C] 500 mg Tablet 0 mg PO DAILY RF: 0 ferrous sulfate 325 mg (65 mg iron) Tablet 325 mg PO DAILY RF: 0 cholecalciferol (vitamin D3) [Vitamin D3] 25 mcg (1,000 unit) Capsule 50 mcg PO DAILY RF: 0 Changed atorvastatin 10 mg tablet 40 mg PO QAM Qty: 30 RF: 0 Discontinued aspirin-dipyridamole 25-200 mg capsule, ER multiphase 12 hr 1 cap PO BID RF: 0 Discharge Orders: Discharge Order (Routine); Ordered 08/12/21 Ordered By: Kristin Soares Admission Data Admit Date/Time: 08/11/21 01:40 Attending Provider: Meredith Mccartney Admit Provider: Jazmin Hernandez Primary Care Provider: Pino Tucker Other Providers: Jazmin Hernandez ; Terrence Barrett Other Interventions: Discharge Summary Assessment (RN) Last Done: 08/12/21 13:22 Coding Level of Care Code 29981 OBS Care - Discharge Diagnoses NSTEMI (non-ST elevated myocardial infarction) I21.4 Retrosternal chest pain R07.2 GERD (gastroesophageal reflux disease) K21.9 Hyperlipidemia E78.5 Hypertension I10 Dementia F03.90
== END 2021-08-12 14:51 | disposition home or self-care (01) ==
LOC: EDINP 23:10 → ED 23:10 → SUATTDRO 08-11 01:40 → EDINP 08-11 02:05 → 2S 08-11 15:29

== ENCOUNTER 2022-01-24 09:27 | Observation (INO) ==
--- NOTE | 2022-01-24 10:13 | XRay Report ---
XR chest 1V portable CLINICAL HISTORY: Chest Pain. COMPARISON STUDY: 08/12/2021 TECHNIQUE: 1 view of the chest FINDINGS: Single frontal view of the chest demonstrates the cardiomediastinal silhouette to be within normal li mits. There is hyperinflation of the lungs with attenuation of the pulmonary vasculature peripherally characteristic of underlying chronic obstructive pulmonary disease. The lungs are clear of alveolar opacities. There is no evidence for pleural effusion. There is no evidence for vascular congestion. T here is no acute osseous pathology. IMPRESSION: 1. No acute cardiopulmonary disease. Evidence for underlying COPD. ACT 112: Negative or not required by law. Electronically signed by: Shin Lomeli M.D. 01/24/2022 10:11 AM
[2022-01-24 10:15] LABS: Basophils # (auto) 0.03 K/uL (0-0.2); Basophils % (auto) 0.6 %; Eosinophils # (auto) 0.09 K/uL (0-0.5); Eosinophils % (auto) 1.7 %; Hematocrit (blood only) 43.1 % (42-52); Hemoglobin 14.8 g/dL (14.0-18.0); Immature Granulocytes # (auto) 0.01 K/uL (0.00-0.02); Immature Granulocytes % (auto) 0.2 %; Lymphocytes # (auto) 1.29 K/uL (1.2-3.4); Lymphocytes % (auto) 24.3 %; Mean Corpuscular Hemoglobin 32.7 pg (25-34); Mean Corpuscular Hgb Conc 34.3 g/dL (32-36); Mean Corpuscular Volume 95.4 fL (80-100); Mean Platelet Volume 10.1 fL (7.4-10.4); Monocytes # (auto) 0.87 K/uL (0.11-0.59); Monocytes % (auto) 16.4 %; Neutrophils # (auto) 3.02 K/uL (1.4-6.5); Neutrophils % (auto) 56.8 %; Platelet Count 233 K/uL (130-400); RDW Coefficient of Variation 12.8 % (11.5-14.5); RDW Standard Deviation 44.7 fL (36.4-46.3); Red Blood Count 4.52 M/uL (4.7-6.1); White Blood Count 5.31 K/uL (4.8-10.8)
[2022-01-24 10:43] LABS: Albumin Level 3.7 gm/dl (3.4-5.0); BUN Creatinine Ratio 14.7 (10-20); Bilirubin,Total 0.6 mg/dl (0.2-1.0); Calcium 9.8 mg/dl (8.5-10.1); Est GFR (African American) 43.3 ml/min; Est GFR (Non-African American) 37.3 ml/min; Globulin 3.7 gm/dl (2.5-4.0); Potassium 4.4 mmol/L (3.5-5.1); Total Protein 7.4 gm/dl (6.0-8.3)
[2022-01-24] MEDS ORDERED: NITROGLYCERIN 2% OINTMENT 30GM TUBE EXT STA (11:00)
[2022-01-24] MEDS ORDERED: ASPIRIN CHEW 324 MG PO STA (11:00)
--- NOTE | 2022-01-24 11:21 | Emergency Department Note ---
Impression & Plan Precordial chest pain, Exertional chest pain ED Provider Note NAME: ISRAEL ACUNA AGE: 86 SEX: M : 1935 ARRIVES VIA: Walk-In INFORMANT: [Patient][] ED PROVIDER(S): [Boubacar Jeffries MD] CHIEF COMPLAINT: Chest pain HISTORY OF PRESENT ILLNESS: The patient is an 86-year-old male presents to the ER with chest pain that has been present for least a month. The pain was initially exertional and would resolve with rest. The pain was maybe a 5 on a scale of 1-10. The patient states that today, he had about 2 hours of chest pain without any exertion. The pain occurred at rest and was an 8/10. He was short of breath. No sweating or nausea. The patient states the pain has now been gone for about 30 minutes. He is currently pain-free. The patient does have a history of coronary disease. He had an NV a few months ago and did have a stent placed. He is currently on aspirin and Plavix. REVIEW OF SYSTEMS: See HPI for pertinent positives and negatives. A total of ten systems were reviewed and were otherwise negative. PMHx/PSHx: See Below SOCIAL HISTORY: See Below. PHYSICAL EXAM: GENERAL: Patient is in no acute distress. HEENT: No acute trauma, normocephalic atraumatic, mucous membranes moist, no nasal congestion, no scleral icterus. NECK: No stridor, no adenopathy, no meningismus, trachea is midline. LUNGS: Clear to auscultation bilaterally, no wheeze, no rhonchi, breath sounds equal. HEART: Without murmurs gallops or rubs, regular rate and rhythm. ABDOMEN: Soft, nontender, bowel sounds positive, no hernias, no peritonitis. EXTREMITIES: No cyanosis or edema, full range of motion of all the joints without pain or difficulty, no signs for acute trauma. NEUROLOGIC: Oriented x 3, no acute motor or sensory deficits, no focal weakness. SKIN: No rash, no jaundice, no diaphoresis. DIFFERENTIAL DIAGNOSIS: Cardiac ischemia, aortic dissection, pulmonary embolism, pneumothorax, pneumonia, pericarditis, myocarditis, esophageal rupture, GERD, cholecystitis, pancreatitis, musculoskeletal, as well as other pathologies. EMERGENCY DEPARTMENT COURSE/PROCEDURES: ECG: Indication was chest pain. The ECG shows a normal sinus rhythm with a rate of 65. There is no ST elevation, no PVCs. The QTC is 399. Continuous Cardiac Monitoring: An order was placed for continuous cardiac monitoring. The monitor shows a rate of 60 with normal sinus rhythm. MEDICAL DECISION MAKING: There is no leukocytosis or concerning anemia. There is a normal platelet count. Creatinine is somewhat elevated at 1.63, this is baseline for the patie nt. No electrolyte abnormality in need of emergent correction. No evidence for pancreatitis. No concerning liver enzyme elevation. ECG shows a normal sinus rhythm, no obvious ischemia. Cardiac enzyme testing does show a slight troponin elevation, this could be consistent with cardiac injury or strain. COVID test returned negative. Chest x-ray does not show pneumonia or CHF. Patient was given nitroglycerin paste, he received oral aspirin. The patient presents with chest discomfort that has been exertional but then today was noted at rest. He does have a troponin elevation. He has a history of coronary disease. The patient is in need of a hospital stay and further cardiac work-up. I talked with the patient and case management. The on-call hospitalist was consulted. Past Med/Surg History Medical History Asthma STABLE BPH (benign prostatic hyperplasia) Chronic cough Chronic kidney disease, stage III (moderate) JURADO (dyspnea on exertion) started ~3 months ago. 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 Weight loss, unintentional 10-15lbs in the last ~3-4 months Surgical History History of colonoscopy History of ear surgery MASTOID SURGERY (1937) History of herniorrhaphy inguinal hernia repair Family History Son FHx: heart disease History of heart artery stent FHx: myocardial infarction, Onset Age: 58 Father FHx: heart disease Brother FHx: heart disease Sister FHx: heart disease FHx: cancer Other No family history of adverse response to anesthesia Social History Smoking Status: Never smoker Second Hand Exposure: No; Do You Dip or Chew Tobacco: No; Hx Alcohol Use: No Hx Substance Use: No Preferred Language: Tanzanian Communication Ability: Effective [employer] Clerk Required: No Beliefs That Will Affect Care: None Current Living Situation: Spouse current occupation: Retired Other Information That Helps Us Care for You: No Feels Safe at Home: Yes Safety Concerns: Feels Safe At This Time Assistive Devices: None Allergies Allergies Allergy/AdvReac Type Severity Reaction Status Date / Time No Known Allergies Allergy Mild Verified 01/24/22 12:13 Home Meds Home Medications Medication Instructions Recorded Confirmed memantine 10 mg tablet (Namenda) 5 mg PO BID 11/29/20 01/24/22 sildenafil 100 mg tablet 100 mg PO UD PRN 11/29/20 01/24/22 telmisartan 40 1 tab PO DAILY 11/29/20 01/24/22 mg-hydrochlorothiazide 12.5 mg tablet (Micardis HCT) donepezil 10 mg tablet 10 mg PO QPM 08/02/21 01/24/22 glucosamine sulf dipot 1 cap PO QAM 08/02/21 01/24/22 chlr,msm,chond 550 mg-C 30 mg-deejay 1 mg capsule (Glucosamine Chondroitin) vitamin A-vitamin C-vit E-min 1 tab PO QAM 08/02/21 01/24/22 tablet ascorbic acid (vitamin C) 500 mg 0 mg PO DAILY 08/11/21 01/24/22 tablet (Vitamin C) cholecalciferol (vitamin D3) 25 50 mcg PO DAILY 08/11/21 01/24/22 mcg (1,000 unit) capsule (Vitamin D3) ferrous sulfate 325 mg (65 mg 325 mg PO DAILY 08/11/21 01/24/22 iron) tablet albuterol sulfate 90 mcg/actuation 2 puff INHALATION Q6 PRN 08/25/21 01/24/22 aerosol inhaler atorvastatin 40 mg tablet 40 mg PO DAILY 08/25/21 01/24/22 benzonatate 100 mg capsule 100 mg PO TID PRN 08/25/21 01/24/22 nitroglycerin 0.4 mg sublingual 0.4 mg SUBLINGUAL UD PRN 08/25/21 01/24/22 tablet (Nitrostat) aspirin 81 mg tablet,delayed 81 mg PO DAILY 09/11/21 01/24/22 release Previous Rx's Medication Instructions Recorded famotidine 40 mg tablet 40 mg PO BID #0 tab 11/30/20 clopidogrel 75 mg tablet 75 mg PO QAM #90 tab 12/06/21 carvedilol 3.125 mg tablet 3.125 mg PO BID #180 tab 01/01/22 Results & Data (ED) Vital Signs Vital Signs - 24 hr 01/24/22 09:36 01/24/22 09:50 01/24/22 09:58 Temperature 36.8 C Temperature Source Oral Pulse Rate 64 60 59 L Pulse Rate from SpO2 Sensor 59 L Pulse Rhythm Regular Respiratory Rate 16 21 18 Respiratory Effort / Characteristics Respiratory Depth Blood Pressure 179/90 H Blood Pressure Mean 119 Pulse Oximetry 96 97 98 Oxygen Delivery Method Room Air Room Air Sepsis Recent Fever Within 48 Hours No Sepsis New/Unexplained Change in Mental Status No Sepsis Action Taken by Nursing No Action Required 01/24/22 10:00 01/24/22 10:10 01/24/22 10:20 Temperature Temperature Source Pulse Rate 60 58 L 56 L Pulse Rate from SpO2 Sensor 59 L 58 L 57 L Pulse Rhythm Respiratory Rate 19 18 20 Respiratory Effort / Characteristics Respiratory Depth Blood Pressure 160/78 H Blood Pressure Mean 105 Pulse Oximetry 98 97 97 Oxygen Delivery Method Sepsis Recent Fever Within 48 Hours Sepsis New/Unexplained Change in Mental Status Sepsis Action Taken by Nursing 01/24/22 10:30 01/24/22 10:40 01/24/22 10:50 Temperature Temperature Source Pulse Rate 55 L 58 L 56 L Pulse Rate from SpO2 Sensor 56 L 58 L 56 L Pulse Rhythm Respiratory Rate 23 17 20 Respiratory Effort / Characteristics Respiratory Depth Blood Pressure 154/77 H Blood Pressure Mean 102 Pulse Oximetry 97 96 97 Oxygen Delivery Method Sepsis Recent Fever Within 48 Hours Sepsis New/Unexplained Change in Mental Status Sepsis Action Taken by Nursing 01/24/22 11:00 01/24/22 11:19 01/24/22 11:20 Temperature Temperature Source Pulse Rate 61 62 63 Pulse Rate from SpO2 Sensor 61 59 L 63 Pulse Rhythm Respiratory Rate 24 22 18 Respiratory Effort / Characteristics Respiratory Depth Blood Pressure 168/97 H Blood Pressure Mean 120 Pulse Oximetry 99 100 99 Oxygen Delivery Method Sepsis Recent Fever Within 48 Hours Sepsis New/Unexplained Change in Mental Status Sepsis Action Taken by Nursing 01/24/22 11:28 01/24/22 11:30 Temperature Temperature Source Pulse Rate 57 L Pulse Rate from SpO2 Sensor 57 L Pulse Rhythm Respiratory Rate 21 Respiratory Effort / Characteristics Non-Labored Respiratory Depth Normal Blood Pressure 172/96 H Blood Pressure Mean 121 Pulse Oximetry 98 Oxygen Delivery Method Sepsis Recent Fever Within 48 Hours Sepsis New/Unexplained Change in Mental Status Sepsis Action Taken by Skilled Nursing Medications Current Medication List: was personally reviewed by me Laboratory Data Attestation: I reviewed the patient's lab results. Result diagrams: 01/24/22 09:45 01/24/22 09:45 Lab Results 01/24/22 01/24/22 01/24/22 Range/Units 09:45 09:45 09:45 WBC 5.31 (4.8-10.8) K/uL RBC 4.52 L (4.7-6.1) M/uL Hgb 14.8 (14.0-18.0) g/dL Hct 43.1 (42-52) % MCV 95.4 (80-100) fL MCH 32.7 (25-34) pg MCHC 34.3 (32-36) g/dL RDW Std Deviation 44.7 (36.4-46.3) fL RDW Coeff of Matt 12.8 (11.5-14.5) % Plt Count 233 (130-400) K/uL MPV 10.1 (7.4-10.4) fL Immature Gran % (Auto) 0.2 % Neut % (Auto) 56.8 % Lymph % (Auto) 24.3 % [place] % (Auto) 16.4 % Eos % (Auto) 1.7 % Baso % (Auto) 0.6 % Neut # (Auto) 3.02 (1.4-6.5) K/uL Lymph # (Auto) 1.29 (1.2-3.4) K/uL [place] # (Auto) 0.87 H (0.11-0.59) K/uL Eos # (Auto) 0.09 (0-0.5) K/uL Baso # (Auto) 0.03 (0-0.2) K/uL Immature Gran # (Auto) 0.01 (0.00-0.02) K/uL Sodium 135 L (136-145) mmol/L Potassium 4.4 (3.5-5.1) mmol/L Chloride 101 (98-107) mmol/L Carbon Dioxide 26 (21-32) mmol/L Anion Gap 8 (3-11) BUN 24 H (6-23) mg/dl Creatinine 1.63 H (0.6-1.4) mg/dl Est Cr Clr Drug Dosing 34.0 ml/min Est GFR ( Amer) 43.3 ml/min Est GFR (Non-Af Amer) 37.3 ml/min BUN/Creatinine Ratio 14.7 (10-20) Glucose 104 H (70-99(Fasting)) mg/dl Calcium 9.8 (8.5-10.1) mg/dl Magnesium (1.7-2.4) mg/dl Total Bilirubin 0.6 (0.2-1.0) mg/dl AST 18 (13-39) U/L ALT 16 (7-52) U/L Alkaline Phosphatase 61 (34-104) U/L Troponin I High Sens 32.0 H (0-20) pg/ml Total Protein 7.4 (6.0-8.3) gm/dl Albumin 3.7 (3.4-5.0) gm/dl Globulin 3.7 (2.5-4.0) gm/dl Albumin/Globulin Ratio 1.0 (0.9-2) Lipase 17 (11-82) U/L SARS-CoV-2, RNA, NAAT (NEGATIVE) 01/24/22 01/24/22 01/24/22 Range/Units 11:17 11:17 11:26 WBC (4.8-10.8) K/uL RBC (4.7-6.1) M/uL Hgb (14.0-18.0) g/dL Hct (42-52) % MCV (80-100) fL MCH (25-34) pg MCHC (32-36) g/dL RDW Std Deviation (36.4-46.3) fL RDW Coeff of Matt (11.5-14.5) % Plt Count (130-400) K/uL MPV (7.4-10.4) fL Immature Gran % (Auto) % Neut % (Auto) % Lymph % (Auto) % [place] % (Auto) % Eos % (Auto) % Baso % (Auto) % Neut # (Auto) (1.4-6.5) K/uL Lymph # (Auto) (1.2-3.4) K/uL [place] # (Auto) (0.11-0.59) K/uL Eos # (Auto) (0-0.5) K/uL Baso # (Auto) (0-0.2) K/uL Immature Gran # (Auto) (0.00-0.02) K/uL Sodium (136-145) mmol/L Potassium (3.5-5.1) mmol/L Chloride (98-107) mmol/L Carbon Dioxide (21-32) mmol/L Anion Gap (3-11) BUN (6-23) mg/dl Creatinine (0.6-1.4) mg/dl Est Cr Clr Drug Dosing ml/min Est GFR ( Amer) ml/min Est GFR (Non-Af Amer) ml/min BUN/Creatinine Ratio (10-20) Glucose (70-99(Fasting)) mg/dl Calcium (8.5-10.1) mg/dl Magnesium 1.9 (1.7-2.4) mg/dl Total Bilirubin (0.2-1.0) mg/dl AST (13-39) U/L ALT (7-52) U/L Alkaline Phosphatase (34-104) U/L Troponin I High Sens 32.8 H (0-20) pg/ml Total Protein (6.0-8.3) gm/dl Albumin (3.4-5.0) gm/dl Globulin (2.5-4.0) gm/dl Albumin/Globulin Ratio (0.9-2) Lipase (11-82) U/L SARS-CoV-2, RNA, NAAT NEGATIVE (NEGATIVE) Administered Medications Magnesium Sulfate/Dextrose (Magnesium Sulfate / D5w) 1 gm in 100 mls @ 50 mls/hr IV ONE ONE Stop: 01/24/22 17:29 Last Admin: 01/24/22 15:50 Dose: 50 mls/hr Documented by: [id number] Discontinued Medications Aspirin (Aspirin Chew 324 Mg) 324 mg PO NOW STA Stop: 01/24/22 11:01 Last Admin: 01/24/22 11:25 Dose: 324 mg Documented by: [id number] Nitroglycerin (Nitroglycerin 2% Ointment 30gm Tube) 1 inch EXT NOW STA Stop: 01/24/22 11:01 Last Admin: 01/24/22 11:26 Dose: 1 inch Documented by: [id number] Nitroglycerin (Nitroglycerin 2% Ointment 30gm Tube) 1 inch EXT Q6 VASHTI Stop: 02/23/22 15:23 Last Admin: 01/24/22 15:37 Dose: Not Given Documented by: [id number] Imaging Data Radiologist's Impression: Chest X-Ray 01/24/22 09:49 XR chest 1V portable CLINICAL HISTORY: Chest Pain. COMPARISON STUDY: 08/12/2021 TECHNIQUE: 1 view of the chest FINDINGS: Single frontal view of the chest demonstrates the cardiomediastinal silhouette to be within normal limits. There is hyperinflation of the lungs with att enuation of the pulmonary vasculature peripherally characteristic of underlying chronic obstructive pulmonary disease. The lungs are clear of alveolar opacities. There is no evidence for pleural effusion. There is no evidence for vascular congestion. There is no acute osseous pathology. IMPRESSION: 1. No acute cardiopulmonary disease. Evidence for underlying COPD. ACT 112: Negative or not required by law. Electronically signed by: Shin Lomeli M.D. 01/24/2022 10:11 AM Discharge Plan Visit Data Chief Complaint: Chest Pain Stated Complaint: CHEST PAIN ED Provider: Boubacar Jeffries Discharge Problem: Precordial chest pain, Exertional chest pain Patient Disposition: Admitted As Inpatient Condition: Good Discharge Instructions Interventions: ED Discharge Assessment Last Done: 01/24/22 15:00
--- NOTE | 2022-01-24 11:28 | History & Physical Report ---
Date of Service January 24, 2022 Assessment & Plan (1) Chest pain: Plan: Concerning exertional nature initially for stable angina. However unusual to have pain all of yesterday without more significant troponin elevation. EKG without ischemic changes Will measure serial troponins ASA 324mg PO given in ER Continue nitro paste 1 inch for blood pressure management and to help stop chest pain returning. Heart healthy diet, NPO @ midnight Consult cardiology for consideration of cardiac catheterization - Cr elevated but at baseline (2) Coronary artery disease: Plan: Status post PCI to the ostial right coronary artery 08/11/2021. Continue aspirin, clopidogrel, carvedilol, telmisartan, atorvastatin (3) GERD (gastroesophageal reflux disease): Plan: Continue famotidine (4) Hyperlipidemia: Plan: Continue atorvastatin, LDL @ goal <70. (5) Hypertension: Plan: Continue home doses of carvedilol, telmisartan and HCTZ (6) BPH (benign prostatic hyperplasia): Plan: On no medications for this monitor for poor urine output (7) Dementia: Plan: Continue Namenda and Aricept (8) Chronic kidney disease, stage III (moderate): Plan: Cr at baseline. Monitor with AM labs Plan: VTE Prophylaxis - chemical deferred due to likely short stay Diet - heart healthy Disposition - observation to PCU Admission and Anticipated Discharge Date Admission Date: January 24, 2022 History of Present Illness Chief Complaint: Chest pain Primary Care Provider: Pino Tucker MD Sudeep Valencia is an 86 year old male with known coronary artery disease who presents to the ER with chest pain. He reports it has been intermittent, worse when he exercises, becoming more frequent over the last month. He describes it as a pressure when he mowed the lawn yesterday. Usually goes away when he rests. However, yesterday he reports being in pain all day and didn't go away until after he went to sleep. This morning he had it at rest, started 8:30am, lasted for approximately 1 hour, severity 7-8/10, left sided, no radiation, no associated diaphoresis, nausea or shortness of breath. He is currently chest pain free. He has a significant history of NSTEMI in August 2021 s/p Successful PCI of ostial RCA with single drug-eluting stent (3.25 x 15 mm Xience; postdilated with 3.5 NC). He notes compliance with all his medications. He reports his chest pain is similar to his chest pain back on this admission. He is a non-smoker, no diabetes, most recent LDL 39. In the ER EKG showed no ischemic abnormalities, initial high sensitivity troponin I 32. He was referred to medicine for admission and ongoing management of chest pain. Allergies Allergy/AdvReac Type Severity Reaction Status Date / Time No Known Allergies Allergy Mild Verified 01/24/22 12:13 Home Medications Medication Instructions Recorded Confirmed Type memantine 10 mg tablet (Namenda) 5 mg PO BID 11/29/20 01/24/22 History sildenafil 100 mg tablet 100 mg PO UD PRN 11/29/20 01/24/22 History telmisartan 40 1 tab PO DAILY 11/29/20 01/24/22 History mg-hydrochlorothiazide 12.5 mg tablet (Micardis HCT) famotidine 40 mg tablet 40 mg PO BID #0 tab 11/30/20 01/24/22 Rx donepezil 10 mg tablet 10 mg PO QPM 08/02/21 01/24/22 History glucosamine sulf dipot 1 cap PO QAM 08/02/21 01/24/22 History chlr,msm,chond 550 mg-C 30 mg-deejay 1 mg capsule (Glucosamine Chondroitin) vitamin A-vitamin C-vit E-min 1 tab PO QAM 08/02/21 01/24/22 History tablet ascorbic acid (vitamin C) 500 mg 0 mg PO DAILY 08/11/21 01/24/22 History tablet (Vitamin C) cholecalciferol (vitamin D3) 25 50 mcg PO DAILY 08/11/21 01/24/22 History mcg (1,000 unit) capsule (Vitamin D3) ferrous sulfate 325 mg (65 mg 325 mg PO DAILY 08/11/21 01/24/22 History iron) tablet albuterol sulfate 90 mcg/actuation 2 puff INHALATION Q6 PRN 08/25/21 01/24/22 History aerosol inhaler atorvastatin 40 mg tablet 40 mg PO DAILY 08/25/21 01/24/22 History benzonatate 100 mg capsule 100 mg PO TID PRN 08/25/21 01/24/22 History nitroglycerin 0.4 mg sublingual 0.4 mg SUBLINGUAL UD PRN 08/25/21 01/24/22 History tablet (Nitrostat) aspirin 81 mg tablet,delayed 81 mg PO DAILY 09/11/21 01/24/22 History release clopidogrel 75 mg tablet 75 mg PO QAM #90 tab 12/06/21 01/24/22 Rx carvedilol 3.125 mg tablet 3.125 mg PO BID #180 tab 01/01/22 01/24/22 Rx Past Med/Surg History Medical History Asthma STABLE BPH (benign prostatic hyperplasia) Chronic cough Chronic kidney disease, stage III (moderate) JURADO (dyspnea on exertion) started ~3 months ago. 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 Weight loss, unintentional 10-15lbs in the last ~3-4 months Surgical History History of colonoscopy History of ear surgery MASTOID SURGERY (1937) History of herniorrhaphy inguinal hernia repair Family History Son FHx: heart disease History of heart artery stent FHx: myocardial infarction, Onset Age: 58 Father FHx: heart disease Brother FHx: heart disease Sister FHx: heart disease FHx: cancer Other No family history of adverse response to anesthesia Social History Smoking Status: Never smoker Second Hand Exposure: No; Do You Dip or Chew Tobacco: No; Hx Alcohol Use: No Hx Substance Use: No Preferred Language: [place]i Communication Ability: Effective [employer] Required: No Beliefs That Will Affect Care: None Current Living Situation: Spouse current occupation: Retired Other Information That Helps Us Care for You: No Feels Safe at Home: Yes Safety Concerns: Feels Safe At This Time Assistive Devices: None Review of Systems Review of Systems: All systems reviewed & are unremarkable except as noted in HPI & below Physical Exam Constitutional: WD/WN, vitals as above Eyes: PERRL, conjunctivae normal, anicteric sclerae Neck: trachea midline, no thyromegaly Respiratory: normal respiratory effort, lungs clear to auscultation Cardiovascular: Rate/Rhythm: regular rate and regular rhythm Heart Sounds: + murmur (holosystolic) Gastrointestinal (Abdomen): normal bowel sounds, soft, nontender, no hepatosplenomegaly Skin: no rashes, warm and dry Neurologic: moves all extremities and awake; not confused Psychiatric: A+Ox3, euthymic affect Genitourinary: no CVA tenderness Results & Data Results & Data ([facility]) Vital Signs (Past 12 Hours) Vital Signs Temp Pulse Resp BP Pulse Ox 01/24/22 09:50 60 21 97 01/24/22 09:36 36.8 C 64 16 179/90 H 96 Laboratory Results Abnormal lab results 01/24/22 01/24/22 01/24/22 Range/Units 09:45 09:45 09:45 RBC 4.52 L (4.7-6.1) M/uL [place] # (Auto) 0.87 H (0.11-0.59) K/uL Sodium 135 L (136-145) mmol/L BUN 24 H (6-23) mg/dl Creatinine 1.63 H (0.6-1.4) mg/dl Glucose 104 H (70-99(Fasting)) mg/dl Troponin I High Sens 32.0 H (0-20) pg/ml 01/24/22 01/24/22 Range/Units 11:17 14:15 RBC (4.7-6.1) M/uL [place] # (Auto) (0.11-0.59) K/uL Sodium (136-145) mmol/L BUN (6-23) mg/dl Creatinine (0.6-1.4) mg/dl Glucose (70-99(Fasting)) mg/dl Troponin I High Sens 32.8 H 32.5 H (0-20) pg/ml Diagnostic Findings XR chest 1V portable CLINICAL HISTORY: Chest Pain. COMPARISON STUDY: 08/12/2021 TECHNIQUE: 1 view of the chest FINDINGS: Single frontal view of the chest demonstrates the cardiomediastinal silhouette to be within normal limits. There is hyperinflation of the lungs with attenuation of the pulmonary vasculature peripherally characteristic of underlying chronic obstructive pulmonary disease. The lungs are clear of alveolar opacities. There is no evidence for pleural effusion. There is no evidence for vascular congestion. There is no acute osseous pathology. IMPRESSION: 1. No acute cardiopulmonary disease. Evidence for underlying COPD. Medications Administered ER Medications Given: ASA 324mg PO Nitroglycerin 1 inch paste ECG Indication: chest pain Rate (beats per minute): 65 Rhythm: normal sinus Findings: no acute ischemic change Comparison ECG Date: from (Aug 25, 2021) Change: the following changes noted (Nonspecific T wave abnormality no longer evident in Anterior leads) Code Status & VTE Plan Code Status Full VTE Prophylaxis Plan VTE Prophylaxis will be ordered: No PG Care Time/CCT Total # of Minutes Spent Total Time Spent with Patient: Total time spent is greater than 50% in coordination of care (as documented) at patient's floor/unit and/or counseling patient: Coding Level of Care Code INT OBSERVATION CARE 70M LVL 3 Diagnoses Chest pain R07.9 GERD (gastroesophageal reflux disease) K21.9 Hyperlipidemia E78.5 Hypertension I10 BPH (benign prostatic hyperplasia) N40.0 Dementia F03.90 Coronary artery disease I25.10 Chronic kidney disease, stage III (moderate) N18.3
--- NOTE | 2022-01-24 14:56 | Electrocardiogram Report ---
Test Reason : Blood Pressure : / mmHG Vent. Rate : 065 BPM Atrial Rate : 065 BPM P-R Int : 168 ms QRS Dur : 066 ms QT Int : 384 ms P-R-T Axes : 040 001 078 degrees QTc Int : 399 ms Poor data quality, interpretation may be adversely affected Normal sinus rhythm Normal ECG When compared with ECG of 25-AUG-2021 16:25, Nonspecific T wave abnormality no longer evident in Anterior leads Confirmed by Yonatan Siddiqui ([id number]) on 01/24/2022 2:56:35 PM Referred By: Confirmed By:Aki Siddiqui
[2022-01-24] MEDS ORDERED: ACETAMINOPHEN 325 MG TAB PO PRN (15:24)
[2022-01-24] MEDS ORDERED: NITROGLYCERIN SL 0.4 MG/TAB TAB SL PRN ×2 (15:24→20:53)
[2022-01-24] MEDS ORDERED: NITROGLYCERIN 2% OINTMENT 30GM TUBE EXT SCH (15:24)
[2022-01-24] MEDS ORDERED: MAGNESIUM SULFATE / D5W 1 GM/100 ML BAG IV ONE (15:30)
--- NOTE | 2022-01-24 15:35 | Cardiology Consultation ---
Date of Consultation January 24, 2022 Assessment & Plan (1) Chest pain: (2) Coronary artery disease: (3) Elevated troponin: (4) Mitral regurgitation: 1. Chest pain: I do not believe the chest pain for which he presented represented any acute coronary syndrome or ischemia. He was very mild e levations in his cardiac biomarkers. However, given the extensive history of chest pain in the prolonged episodes of chest pain I would have expected significant elevations of this were truly related to ischemia. It is possible he has some gastrointestinal source or pain from his intrinsic lung disease. It is also curious that the symptoms did not improve with percutaneous intervention to the right coronary artery. 2. Elevated troponin: Very mild elevation without any change in trajectory. This likely represents chronic condition. Not indicative of an acute coronary syndrome. 3. Coronary artery disease: He underwent percutaneous intervention to the right coronary artery in August 2021. Curiously, this did not improve any of his chest pain symptoms and is continued to have the same symptoms subsequently. Continue aggressive secondary prevention with aspirin, clopidogrel and high-dose atorvastatin. 4. Mitral regurgitation: Moderate in 2020. No need for re-evaluation currently. Given his stable biomarkers in the atypical nature of his symptoms I suggested exercise echocardiography for evaluation. History of Present Illness Reason for Consultation: Chest pain Requesting Physician: Amelia Attending Physician: Pino Cisneros MD History of Present Illness The patient is an 86-year-old gentleman with a history of coronary disease having undergone percutaneous intervention to the right coronary ostium August 2021. Patient states that for several months now he has been experiencing significant tiredness. His main concern appears to be significant tiredness and some element of exercise intolerance. Additionally, he has noted persistent episodes of chest discomfort. He describes this as a pressure in the precordium. It is random in onset and generally lasts for hours. He states that he has these symptoms most days. Does not seem to become worse with activity and it does not resolve rapidly with rest. He states that the symptoms preceded his percutaneous intervention in did not improve afterwards. He does have an element of exertional dyspnea as well. He did not report orthopnea. He did not report lower extremity edema. No recent palpitations. The patient had symptoms of chest discomfort for several hours yesterday. This morning he woke with discomfort and again decided to come to the emergency room for evaluation. He states that his symptoms resolved upon arrival. He did not report any specific intervention which improved his symptoms. Currently no symptoms. Allergies Allergy/AdvReac Type Severity Reaction Status Date / Time No Known Allergies Allergy Mild Verified 01/24/22 12:13 Home Medications Medication Instructions Recorded Confirmed Type memantine 10 mg tablet (Namenda) 5 mg PO BID 11/29/20 01/24/22 History sildenafil 100 mg tablet 100 mg PO UD PRN 11/29/20 01/24/22 History telmisartan 40 1 tab PO DAILY 11/29/20 01/24/22 History mg-hydrochlorothiazide 12.5 mg tablet (Micardis HCT) famotidine 40 mg tablet 40 mg PO BID #0 tab 11/30/20 01/24/22 Rx donepezil 10 mg tablet 10 mg PO QPM 08/02/21 01/24/22 History glucosamine sulf dipot 1 cap PO QAM 08/02/21 01/24/22 History chlr,msm,chond 550 mg-C 30 mg-deejay 1 mg capsule (Glucosamine Chondroitin) vitamin A-vitamin C-vit E-min 1 tab PO QAM 08/02/21 01/24/22 History tablet ascorbic acid (vitamin C) 500 mg 0 mg PO DAILY 08/11/21 01/24/22 History tablet (Vitamin C) cholecalciferol (vitamin D3) 25 50 mcg PO DAILY 08/11/21 01/24/22 History mcg (1,000 unit) capsule (Vitamin D3) ferrous sulfate 325 mg (65 mg 325 mg PO DAILY 08/11/21 01/24/22 History iron) tablet albuterol sulfate 90 mcg/actuation 2 puff INHALATION Q6 PRN 08/25/21 01/24/22 History aerosol inhaler atorvastatin 40 mg tablet 40 mg PO DAILY 08/25/21 01/24/22 History benzonatate 100 mg capsule 100 mg PO TID PRN 08/25/21 01/24/22 History nitroglycerin 0.4 mg sublingual 0.4 mg SUBLINGUAL UD PRN 08/25/21 01/24/22 History tablet (Nitrostat) aspirin 81 mg tablet,delayed 81 mg PO DAILY 09/11/21 01/24/22 History release clopidogrel 75 mg tablet 75 mg PO QAM #90 tab 12/06/21 01/24/22 Rx carvedilol 3.125 mg tablet 3.125 mg PO BID #180 tab 01/01/22 01/24/22 Rx Patient History Medical History (Updated 01/24/22 @ 15:32 by Yonatan Siddiqui MD) Asthma STABLE BPH (benign prostatic hyperplasia) Chronic cough Chronic kidney disease, stage III (moderate) JURADO (dyspnea on exertion) started ~3 months ago. 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 Weight loss, unintentional 10-15lbs in the last ~3-4 months Surgical History History of colonoscopy History of ear surgery MASTOID SURGERY (1937) History of herniorrhaphy inguinal hernia repair Family History Son FHx: heart disease History of heart artery stent FHx: myocardial infarction, Onset Age: 58 Father FHx: heart disease Brother FHx: heart disease Sister FHx: heart disease FHx: cancer Other No family history of adverse response to anesthesia Social History Smoking Status: Never smoker Second Hand Exposure: No; Hx Alcohol Use: No Hx Substance Use: No Preferred Language: Icelandic Communication Ability: Effective Channel Program Manager Required: No Beliefs That Will Affect Care: None Current Living Situation: Spouse current occupation: Retired Feels Safe at Home: Yes Assistive Devices: Glasses and Hearing Aid - Bilateral Review of Systems Review of Systems: Per HPI. Eating and drinking normally. He has a history of indigestion which she reports involved lower abdominal discomfort. This appears to have resolved with medical therapy. Physical Exam Physical Exam: The patient is alert and oriented. Mood and affect appeared normal. He answered all questions appropriately. HEENT: Pupils are equal and reactive to light and accommodation. Extraocular movements are intact. The sclerae are anicteric. Neuro: Cranial nerves intact Lungs: Clear to auscultation bilaterally. He has good air movement without use of accessory muscles. No rales wheezes or rhonchi. Cardiac: Heart demonstrates a regular rate and rhythm. Normal S1 and S2. Holosystolic murmur Pulses: The patient has palpable radial pulses bilaterally that are equal in intensity Extremities: There was no evidence of hypoperfusion. There is no cyanosis or clubbing. There is no edema. Skin: I did not appreciate any rashes on examination today. Results & Data ([facility]) Vital Signs (Past 12 Hours) Vital Signs Temp Pulse Resp BP Pulse Ox 01/24/22 14:50 61 22 97 01/24/22 14:40 62 22 98 01/24/22 14:30 61 21 157/93 H 98 01/24/22 14:20 60 25 H 98 01/24/22 14:12 67 22 01/24/22 14:00 68 16 132/78 97 01/24/22 13:50 57 L 15 98 01/24/22 13:40 60 24 98 01/24/22 13:30 55 L 18 138/85 98 01/24/22 13:20 65 16 97 01/24/22 13:10 57 L 21 97 01/24/22 13:00 56 L 19 141/79 H 97 01/24/22 12:50 58 L 17 97 01/24/22 12:40 58 L 22 97 01/24/22 12:30 56 L 20 146/83 H 97 01/24/22 12:20 62 23 97 01/24/22 12:12 58 L 21 167/91 H 98 01/24/22 11:50 60 23 98 01/24/22 11:40 59 L 21 97 01/24/22 11:30 57 L 21 172/96 H 98 01/24/22 11:20 63 18 99 01/24/22 11:19 62 22 100 01/24/22 11:00 61 24 168/97 H 99 01/24/22 10:50 56 L 20 97 01/24/22 10:40 58 L 17 96 01/24/22 10:30 55 L 23 154/77 H 97 01/24/22 10:20 56 L 20 97 01/24/22 10:10 58 L 18 97 01/24/22 10:00 60 19 160/78 H 98 01/24/22 09:58 59 L 18 98 01/24/22 09:50 60 21 97 01/24/22 09:36 36.8 C 64 16 179/90 H 96 Laboratory Results Abnormal Lab Results 01/24/22 01/24/22 01/24/22 09:45 09:45 09:45 WBC 5.31 RBC 4.52 L Hgb 14.8 Hct 43.1 MCV 95.4 MCH 32.7 MCHC 34.3 RDW Std Deviation 44.7 RDW Coeff of Matt 12.8 Plt Count 233 MPV 10.1 Immature Gran % (Auto) 0.2 Neut % (Auto) 56.8 Lymph % (Auto) 24.3 [place] % (Auto) 16.4 Eos % (Auto) 1.7 Baso % (Auto) 0.6 Neut # (Auto) 3.02 Lymph # (Auto) 1.29 [place] # (Auto) 0.87 H Eos # (Auto) 0.09 Baso # (Auto) 0.03 Immature Gran # (Auto) 0.01 Sodium 135 L Potassium 4.4 Chloride 101 Carbon Dioxide 26 Anion Gap 8 BUN 24 H Creatinine 1.63 H Est Cr Clr Drug Dosing 34.0 Est GFR ( Amer) 43.3 Est GFR (Non-Af Amer) 37.3 BUN/Creatinine Ratio 14.7 Glucose 104 H Calcium 9.8 Magnesium Total Bilirubin 0.6 AST 18 ALT 16 Alkaline Phosphatase 61 Troponin I High Sens 32.0 H Total Protein 7.4 Albumin 3.7 Globulin 3.7 Albumin/Globulin Ratio 1.0 Lipase 17 SARS-CoV-2, RNA, NAAT 01/24/22 01/24/22 01/24/22 11:17 11:17 11:26 WBC RBC Hgb Hct MCV MCH MCHC RDW Std Deviation RDW Coeff of Matt Plt Count MPV Immature Gran % (Auto) Neut % (Auto) Lymph % (Auto) [place] % (Auto) Eos % (Auto) Baso % (Auto) Neut # (Auto) Lymph # (Auto) [place] # (Auto) Eos # (Auto) Baso # (Auto) Immature Gran # (Auto) Sodium Potassium Chloride Carbon Dioxide Anion Gap BUN Creatinine Est Cr Clr Drug Dosing Est GFR ( Amer) Est GFR (Non-Af Amer) BUN/Creatinine Ratio Glucose Calcium Magnesium 1.9 Total Bilirubin AST ALT Alkaline Phosphatase Troponin I High Sens 32.8 H Total Protein Albumin Globulin Albumin/Globulin Ratio Lipase SARS-CoV-2, RNA, NAAT NEGATIVE 01/24/22 14:15 WBC RBC Hgb Hct MCV MCH MCHC RDW Std Deviation RDW Coeff of Matt Plt Count MPV Immature Gran % (Auto) Neut % (Auto) Lymph % (Auto) [place] % (Auto) Eos % (Auto) Baso % (Auto) Neut # (Auto) Lymph # (Auto) [place] # (Auto) Eos # (Auto) Baso # (Auto) Immature Gran # (Auto) Sodium Potassium Chloride Carbon Dioxide Anion Gap BUN Creatinine Est Cr Clr Drug Dosing Est GFR ( Amer) Est GFR (Non-Af Amer) BUN/Creatinine Ratio Glucose Calcium Magnesium Total Bilirubin AST ALT Alkaline Phosphatase Troponin I High Sens 32.5 H Total Protein Albumin Globulin Albumin/Globulin Ratio Lipase SARS-CoV-2, RNA, NAAT Diagnostic Findings Echocardiogram performed 08/11/2021: Normal LV systolic function with ejection fraction 55-60%. Mild LVH. Aortic valve sclerosis without stenosis. Moderate mitral regurgitation. Cardiac catheterization performed 08/11/2021: Normal left main, lad and left circumflex. Right dominant coronary system with ostial stenosis ECG Additional Comments: Admission was normal sinus rhythm. No ST or T-wave changes. PG Care Time/CCT Total # of Minutes Spent Total Time Spent with Patient: Total time spent is greater than 50% in coordination of care (as documented) at patient's floor/unit and/or counseling patient: Coding Level of Care Code INT OBSERVATION CARE 70M LVL 3 Diagnoses Chest pain R07.9 Coronary artery disease I25.10 Elevated troponin R77.8 Mitral regurgitation I34.0
[2022-01-24] MEDS ORDERED: ALBUTEROL HFA 8 GM INHALER INH PRN (20:53)
[2022-01-24] MEDS ORDERED: BENZONATATE 100 MG CAPSULE PO PRN (20:53)
[2022-01-24] MEDS ORDERED: DONEPEZIL HCL 10 MG TAB PO SCH (21:00)
[2022-01-24] MEDS: carvediloL 3.125 MG TAB PO SCH (22:21)
[2022-01-24] MEDS: MEMANTINE HCL 5 MG TAB PO SCH (22:21)
[2022-01-24] MEDS: FAMOTIDINE 40 MG TABLET PO SCH (22:21)
[2022-01-25 06:44] LABS: Basophils # (auto) 0.03 K/uL (0-0.2); Basophils % (auto) 0.5 %; Eosinophils # (auto) 0.14 K/uL (0-0.5); Eosinophils % (auto) 2.3 %; Hematocrit (blood only) 41.9 % (42-52); Hemoglobin 14.5 g/dL (14.0-18.0); Immature Granulocytes # (auto) 0.02 K/uL (0.00-0.02); Immature Granulocytes % (auto) 0.3 %; Lymphocytes # (auto) 1.31 K/uL (1.2-3.4); Lymphocytes % (auto) 21.3 %; Mean Corpuscular Hemoglobin 33.2 pg (25-34); Mean Corpuscular Hgb Conc 34.6 g/dL (32-36); Mean Corpuscular Volume 95.9 fL (80-100); Mean Platelet Volume 9.8 fL (7.4-10.4); Neutrophils # (auto) 3.84 K/uL (1.4-6.5); Neutrophils % (auto) 62.6 %; Platelet Count 230 K/uL (130-400); RDW Coefficient of Variation 12.8 % (11.5-14.5); RDW Standard Deviation 44.8 fL (36.4-46.3); Red Blood Count 4.37 M/uL (4.7-6.1); White Blood Count 6.14 K/uL (4.8-10.8)
[2022-01-25 06:58] LABS: BUN Creatinine Ratio 16.1 (10-20); Calcium 9.4 mg/dl (8.5-10.1); Creatinine Clr Calc Pharmacy 34.4 ml/min; Est GFR (African American) 43.9 ml/min; Est GFR (Non-African American) 37.9 ml/min; Potassium 4.1 mmol/L (3.5-5.1)
--- NOTE | 2022-01-25 07:35 | Discharge Summary ---
Date of Service January 25, 2022 Admission HPI Per Admitting Provider Sudeep Valencia is an 86 year old male with known coronary artery disease who presents to the ER with chest pain. He reports it has been intermittent, worse when he exercises, becoming more frequent over the last month. He describes it as a pressure when he mowed the lawn yesterday. Usually goes away when he rests. However, yesterday he reports being in pain all day and didn't go away until after he went to sleep. This morning he had it at rest, started 8:30am, lasted for approximately 1 hour, severity 7-8/10, left sided, no radiation, no associated diaphoresis, nausea or shortness of breath. He is currently chest p ain free. He has a significant history of NSTEMI in August 2021 s/p Successful PCI of ostial RCA with single drug-eluting stent (3.25 x 15 mm Xience; postdilated with 3.5 NC). He notes compliance with all his medications. He reports his chest pain is similar to his chest pain back on this admission. He is a non-smoker, no diabetes, most recent LDL 39. In the ER EKG showed no ischemic abnormalities, initial high sensitivity troponin I 32. He was referred to medicine for admission and ongoing management of chest pain. Admission Exam Per Admitting Provider Constitutional: WD/WN, vitals as above Eyes: PERRL, conjunctivae normal, anicteric sclerae Neck: trachea midline, no thyromegaly Respiratory: normal respiratory effort, lungs clear to auscultation Cardiovascular: Rate/Rhythm: regular rate and regular rhythm Heart Sounds: + murmur (holosystolic) Gastrointestinal (Abdomen): normal bowel sounds, soft, nontender, no hepatosplenomegaly Skin: no rashes, warm and dry Neurologic: moves all extremities and awake; not confused Psychiatric: A+Ox3, euthymic affect Genitourinary: no CVA tenderness Principal Diagnosis chest pain, non-cardiac Discharge Exam General: 86-year old male who is alert, oriented, and appears in no acute distress. HEENT: NCAT. - Eyes - Sclera are white, anicteric, and without injection. - Mouth - MMM - Neck - supple, no appreciable JVD Cardiac: Normal rate and regular rhythm; S1 and S2 present with no murmurs, rubs, or gallops. Pulmonary: Good respiratory effort with symmetric expansion of the chest. No use of accessory muscles. Lungs were clear to auscultation bilaterally with no crackles or wheezes. Abdominal: Normoactive bowel sounds. Abdomen was soft, nondistended, and non- tender to palpation. Discharge Data Allergies Allergy/AdvReac Type Severity Reaction Status Date / Time No Known Allergies Allergy Mild Verified 01/24/22 12:13 Consultations 01/24/22 11:07 ED Decision to Admit Stat 01/24/22 11:36 Consult Cardiology Routine "1. Chest pain: I do not believe the chest pain for which he presented represented any acute coronary syndrome or ischemia. He was very mild elevations in his cardiac biomarkers. However, given the extensive history of chest pain in the prolonged episodes of chest pain I would have expected significant elevations of this were truly related to ischemia. It is possible he has some gastrointestinal source or pain from his intrinsic lung disease. It is also curious that the symptoms did not improve with percutaneous intervention to the right coronary artery. 2. Elevated troponin: Very mild elevation without any change in trajectory. This likely represents chronic condition. Not indicative of an acute coronary syndrome. 3. Coronary artery disease: He underwent percutaneous intervention to the right coronary artery in August 2021. Curiously, this did not improve any of his chest pain symptoms and is continued to have the same symptoms subsequently. Continue aggressive secondary prevention with aspirin, clopidogrel and high-dose atorvastatin. 4. Mitral regurgitation: Moderate in 2020. No need for re-evaluation currently. Given his stable biomarkers in the atypical nature of his symptoms I suggested exercise echocardiography for evaluation." -- excerpted from Dr. Siddiqui, [facility] Cardiology, entered 01/24/22 Hospital Course (1) Chest pain: History of this chest pain >months somewhat difficult to obtain - review of records does note that patient regarded this chest pain as exertionally related on arrival, though denied this to the rest of his team. --> Review of his previous outpatient notes do reveal h/o intermittent LUQ/epigastric pain also NOT associated with exertion. He does have history of hiatal hernia. History of CAD requiring PCI to RCA in 08/2021 noted ECG, troponin x 3 negative and without suggestion of ischemia Stress TTE performed while here - no e/o ischemia Received ASA 324, nitro paste while here without change (though was symptom free shortly after arrival in ED) Cardiology consulted while here - unlikely to be cardiac in nature DDX: Esophageal spasms, GERD (e.g., from sliding hiatal hernia), PUD (though not prandially related at all), ?ILD Empirically initiate pantoprazole 40mg daily x 6 weeks to see if this helps reduce intermittent bouts Consider GI consult for esophageal manometry/EGD/candidacy for hiatal hernia rep air by surgery (2) Coronary artery disease: Status post PCI to the ostial right coronary artery 08/11/2021. Continue aspirin, clopidogrel, carvedilol, telmisartan, atorvastatin (3) GERD (gastroesophageal reflux disease): Continue famotidine As above - history of hiatal hernia; KATIE could explain some of his symptoms in setting of negative cardiac w/u Start protonix 40mg daily x 6 weeks (4) Hyperlipidemia: Continue atorvastatin, LDL @ goal <70. (5) Hypertension: Continue home doses of carvedilol, telmisartan and HCTZ (6) BPH (benign prostatic hyperplasia): On no medications for this monitor for poor urine output (7) Dementia: Continue Namenda and Aricept (8) Chronic kidney disease, stage III (moderate): Cr at baseline during stay Code: Patient identified as FULL CODE while here Total Time Total Time Spent Total Time Spent (In Minutes): 30 Discharge Plan Discharge Items Patient Disposition: Home - Self-Care Reason For Visit: CHEST PAIN Discharge Diagnosis: non-cardiac chest pain Condition on Discharge: Good Activity: Per Instructions section Non-emergency contact: Primary Care Provider Call non-emergency contact if: your symptoms worsen, your pain is worsening, your pain is concerning for you and your temperature is above 101 Follow-up/Referrals: Pino Tucker MD [Primary Care Provider] - (Follow up appointment scheduled with Dr. Hamilton.) Niall Hamilton MD [Resident] - 01/30/22 10:30 am (Please follow up with Dr. Hamilton on Saturday01/30/22 at 10:30 am. Please arrive to the office at 10:15 am for your appointment. If you are unable to keep this appointment, please call the office to reschedule at [phone].) Diet: Heart Healthy Addtl Attending Provider Instructions: You were seen in [facility] for evaluation of chest pain. Upon your arrival here, you underwent several tests to determine the cause of this pain. These test included laboratories, imaging studies, and monitoring the electrical activity of your heart. Thankfully, none of these test demonstrated any evidence of heart stress or heart attack. Because of your history of heart disease, you did undergo a stress test, which also did not show any evidence of heart stress/dysfunction. At this point, the cause of your chest pain remains somewhat unclear; we suspect that it may relate to stomach irritation (Reflux) and possibly muscle spasms within the esophagus (food tube). Your lung disease is noted; lower suspicion this is related at this time, but considered. At this time, the remainder of yo ur work-up will be pursued in the outpatient (clinic) setting. Upon your discharge, please note the following additions/deletions/modifications: - START pantoprazole 40mg daily x 6 weeks (stomach acid loom fixer helper) to see if this helps reduces frequency of discomfort Please follow-up with your primary care physician within 1 week to review this visit. At that time, please review any medication changes. If you experience any worsening shortness of breath, severe/more persistent chest pain, fevers, chills, nausea, vomiting, feeling like you are to pass out, or other worrisome symptoms, please seek medical attention immediately; if your symptoms are severe, please report to the ER. Is a pleasure for caring for you while you are here, we wish you all the best in your recovery. Pending Studies at Discharge: No Stand-Alone Forms: My [facility], Smoking Cessation Medications and DC Order Prescriptions: New pantoprazole 40 mg tablet,delayed release (DR/EC) 40 mg PO DAILY 42 Days Qty: 42 RF: 0 Continued clopidogrel 75 mg tablet 75 mg PO QAM Qty: 90 RF: 3 carvedilol 3.125 mg tablet 3.125 mg PO BID Qty: 180 RF: 3 aspirin 81 mg tablet,delayed release (DR/EC) 81 mg PO DAILY RF: 0 telmisartan-hydrochlorothiazid [Micardis HCT] 40-12.5 mg tablet 1 tab PO DAILY RF: 0 sildenafil 100 mg tablet 100 mg PO UD PRN (Reason: Erectile Dysfunction) RF: 0 memantine [Namenda] 10 mg tablet 5 mg PO BID RF: 0 famotidine 40 mg tablet 40 mg PO BID Qty: 0 RF: 0 donepezil 10 mg Tablet 10 mg PO QPM RF: 0 vitamin A-vitamin C-vit E-min Tablet 1 tab PO QAM RF: 0 Glucosamine Chondroitin 550-30-1 mg Capsule 1 cap PO QAM RF: 0 ascorbic acid (vitamin C) [Vitamin C] 500 mg Tablet 0 mg PO DAILY RF: 0 ferrous sulfate 325 mg (65 mg iron) Tablet 325 mg PO DAILY RF: 0 cholecalciferol (vitamin D3) [Vitamin D3] 25 mcg (1,000 unit) Capsule 50 mcg PO DAILY RF: 0 atorvastatin 40 mg tablet 40 mg PO DAILY RF: 0 benzonatate 100 mg capsule 100 mg PO TID PRN (Reason: Cough) RF: 0 nitroglycerin [Nitrostat] 0.4 mg tablet, sublingual 0.4 mg sublingual UD PRN (Reason: chest pain) RF: 0 albuterol sulfate 90 mcg/actuation HFA aerosol inhaler 2 puff INHALATION Q6 PRN (Reason: Shortness Of Breath Or Wheezing) RF: 0 Discharge Orders: Discharge Order (Routine); Ordered 01/25/22 Ordered By: Jaison Rios/Other Patient Handouts: ED Chest Pain, Noncardiac, ED GERD (Adult) Admission Data Admit Date/Time: 01/24/22 11:36 Attending Provider: Claus Hugo Admit Provider: Pino Cisneros Primary Care Provider: Pino Tucker Other Providers: Yonatan Siddiqui ; Pino Cisneros Other Interventions: Discharge Summary Assessment (RN) Last Done: 01/25/22 12:03 Supervising Physician Co-Signing Physician Notes I also saw the patient and confirmed mcmahon portions of the history and physical examination. I agree with the impression and plan as noted in the resident discharge summary. Patient was seen yesterday by cardiology and they recommended a stress test which was completed; it showed no evidence of inducible ischemia. The patient had a similar admission in November, at which time a resting echocardiogram was done. At that time the suspicion was it was related to his esophageal reflux and/or his hiatal hernia. Exam 158/88, 65, 16, 36.8, 96% on room air Pleasant alert. No acute distress. Denies chest pain. Seated in bed. Heart regular. Lungs clear with nonlabored respirations. Data Hgb 14.5 TSH 4.797 Troponin 32.5 Sodium 135, potassium 4.1, BUN 26, creatinine 1.61 Chest pain, negative stress echocardiogram Gastroesophageal reflux with hiatal hernia Discharge to home today Outpatient follow-up with Dr. Tucker as planned in early February Will reassess symptoms after addition of PPI. It is realized that this had been stopped previously by nephrology, suspect on the basis of the patient's CKD. Will monitor renal function and discuss with nephrology. Resident Activity Tracking Resident Involvement: Resident Care Provided Care Provided: Adult Hospital Medicine
[2022-01-25] MEDS: MEMANTINE HCL 5 MG TAB PO SCH (08:03)
[2022-01-25] MEDS: carvediloL 3.125 MG TAB PO SCH (08:03)
[2022-01-25] MEDS: FAMOTIDINE 40 MG TABLET PO SCH (08:04)
[2022-01-25] MEDS ORDERED: TELMISARTAN 40 MG TAB PO SCH (09:00)
[2022-01-25] MEDS ORDERED: ATORVASTATIN 40 MG TAB PO SCH (09:00)
[2022-01-25] MEDS ORDERED: CHOLECALCIFEROL 1,000 UNITS 25 MCG TAB PO SCH (09:00)
[2022-01-25] MEDS ORDERED: GLUCOSAMINE SULFATE 500 MG CAP PO SCH (09:00)
[2022-01-25] MEDS ORDERED: hydroCHLOROthiazide 25 MG TAB PO SCH (09:00)
[2022-01-25] MEDS ORDERED: CLOPIDOGREL BISULFATE 75 MG TAB PO SCH (09:00)
[2022-01-25] MEDS ORDERED: ASPIRIN 81 MG ECTAB PO SCH (09:00)
[2022-01-25] MEDS ORDERED: ASCORBIC ACID 500 MG TAB PO SCH (09:00)
[2022-01-25] MEDS ORDERED: FERROUS SULFATE 325 MG TAB PO SCH (09:00)
--- NOTE | 2022-01-25 10:55 | XCELERA ---
[id number]
[2022-01-25] MEDS ORDERED: PANTOprazole 40 MG TAB PO SCH (11:15)
== END 2022-01-25 13:33 | disposition home or self-care (01) ==
LOC: ED 09:27 → 2S 09:27 → SUATTDRO 11:36 → 2S 15:00

== ENCOUNTER 2022-07-10 09:11 | Inpatient (IN) ==
--- NOTE | 2022-07-10 09:53 | Emergency Department Note ---
Impression & Plan Bilateral pulmonary embolism, Hypoxia, Elevated troponin I level, Weakness ED Provider Note Provider: Zev Mcmahon MD DATE OF SERVICE: 07/10/2022 CHIEF COMPLAINT: Ongoing weakness now with shortness of breath HISTORY OF PRESENT ILLNESS: Patient is a 86-year-old gentleman history of CKD, hypertension, Interstitial lung disease, hypothyroidism presenting here today with reporting ongoing issues over almost 12 months of weakness. Has been evaluated here and in the outpatient setting several times. Has been following with primary doctor as well as cardiology. Over the last several days particularly yesterday however the patient states has been more short of breath. States occasionally cough with the states this has been chronic. No recent travel. Denies leg swelling. Maybe a slight amount of chest tightness but denies active chest pain. Denies abdominal symptoms as abdominal pain, nausea, or vomiting. No significant sick contacts or runny nose or sore throat re ported. Patient denies a history of smoking or oxygen use. State getting out of bed and walking a short distance winds him very much an this is newer. Has been on a steroid taper started this last week without real improvement of symptoms with the patient states not been sleeping that well. REVIEW OF SYSTEMS: A total of 10 review of systems was obtained and negative except as stated above in the HPI. PAST MEDICAL HISTORY: As noted above MEDICATIONS: Reviewed home medication list. SOCIAL HISTORY: Non-smoker, lives at home with PHYSICAL EXAM: GENERAL: alert and oriented in no acute distress on stretcher Head: normocephalic and atraumatic EYES: No injection, discharge or icterus. NECK: Trachea midline. ENT: Mucous membranes pink and moist. LUNGS: Airway patent. No retractions. Breath sounds clear HEART: Regular rate and rhythm. No chest wall tenderness ABDOMEN: Soft and non-tender, without guarding or rebound. SKIN: Acyanotic, warm, dry, without rashes EXTREMITIES: Without swelling, tenderness or deformity NEUROLOGICAL: No focal deficits. No aphasia. No facial droop or slurred speech. Ambulatory. EK bpm normal sinus rhythm without PVC or PAC. QTc 405. No acute ST segment depression with some questionable less than 1 mm anterior V1 through 3 ST elevation. Compared to previous from June 25 of this year. Similar V1 through V3 morphology although V3 T wave inversion noted. CONTINUOUS CARDIAC MONITORING: was ordered and showed a heart rate of 70s-90s bpm in NSR Patient's laboratory studies and imaging reviewed. Differential includes pulmonary issues, infection, dehydration, metabolic abnormality, hypo/hyperglycemia, electrolyte disturbance, anemia, hypoxia, cardiac sources, intracerebral event, toxicologic, neurologic, as well as other pathologies. IMPRESSION/MEDICAL DECISION MAKING: Patient with multiple evaluations in the outpatient and ER settings. Recent negative Lyme testing. Did recomplete basic blood work today. Note to be more short of breath and hypoxic here. Records indicate a history of interstitial lung disease in the chart but the patient denies any known history of lung issues. Not on oxygen at home. Has been on a steroid course the last week or so. No other significant fever or infectious symptoms reported the COVID test was completed. Chest x-ray will be obtained. No significant leg swelling and lower suspicion for fluid overload at this time. Reviewed pulmonary note from the end of April of this year. Not having focal neurological deficits and low suspicion for CVA or intracranial bleed at this time. Blood work is reassuring. Stable renal function. Troponin much higher than previous baseline. Likely demand from hypoxia. Doubt this is cardiac primary. Discussed with the patient and as well as the hospitalist regarding risks and benefits of proceeding with CTA to exclude PE and his renal dysfunction. In shared decision-making proceeded with this. Large bilateral PEs are noted. Heparinization will be pursued at this time as he is stable. DIAGNOSIS: Bilateral pulmonary embolisms, weakness, hypoxia, elevated troponin DISPOSITION: Hospitalist will evaluate Patient was agreeable with this plan. Critical Care I have personally spent 36 minutes of critical care time in the direct management of this patient. This includes bedside care, interpretation of diagnostic studies, and testing, discussion with consultants, patient, and family members, and other required patient management activities. These 36 minutes is in excess of all separately billable procedures. Past Med/Surg History Medical History (Updated 07/10/22 @ 12:18 by Blake Martin PA-C) Asthma STABLE BPH (benign prostatic hyperplasia) Chronic cough Chronic kidney disease, stage III (moderate) JURADO (dyspnea on exertion) started ~3 months ago. 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 Weakness Weight loss, unintentional 10-15lbs in the last ~3-4 months Surgical History (Updated 06/28/22 @ 11:36 by Beck Fuentes PA-C) History of colonoscopy History of ear surgery MASTOID SURGERY (1937) History of herniorrhaphy inguinal hernia repair Family History Son FHx: heart disease History of heart artery stent FHx: myocardial infarction, Onset Age: 58 Father FHx: heart disease Brother FHx: heart disease Sister FHx: heart disease FHx: cancer Other No family history of adverse response to anesthesia Social History Smoking Status: Never smoker Second Hand Exposure: No; Hx Alcohol Use: No Hx Substance Use: No Preferred Language: Frisian Communication Ability: Effective Memorial Counselor Required: No Beliefs That Will Affect Care: None marital status: Current Living Situation: Spouse current occupation: Retired How many Children do You have: 4 Feels Safe at Home: Yes Assistive Devices: None Allergies Allergies Allergy/AdvReac Type Severity Reaction Status Date / Time No Known Allergies Allergy Mild Verified 07/06/22 15:10 Home Meds Home Medications Medication Instructions Recorded Confirmed memantine 10 mg tablet (Namenda) 5 mg PO BID 11/29/20 07/10/22 sildenafil 100 mg tablet 100 mg PO UD PRN Erectile 11/29/20 07/10/22 Dysfunction donepezil 10 mg tablet 10 mg PO QPM 08/02/21 07/10/22 cholecalciferol (vitamin D3) 25 50 mcg PO DAILY 08/11/21 07/10/22 mcg (1,000 unit) capsule (Vitamin D3) ferrous sulfate 325 mg (65 mg 325 mg PO DAILY 08/11/21 07/10/22 iron) tablet atorvastatin 40 mg tablet 40 mg PO DAILY 08/25/21 07/10/22 nitroglycerin 0.4 mg sublingual 0.4 mg sublingual UD PRN chest pain 08/25/21 07/10/22 tablet (Nitrostat) aspirin 81 mg tablet,delayed 81 mg PO DAILY 09/11/21 07/10/22 release tamsulosin 0.4 mg capsule 0.4 mg PO DAILY 03/28/22 07/10/22 telmisartan 40 1 tab PO DAILY 06/28/22 07/10/22 mg-hydrochlorothiazide 12.5 mg tablet Previous Rx's Medication Instructions Recorded famotidine 40 mg tablet 40 mg PO BID #0 tabs 11/30/20 clopidogrel 75 mg tablet 75 mg PO QAM #90 tabs 12/06/21 carvedilol 3.125 mg tablet 3.125 mg PO BID #180 tabs 01/01/22 levothyroxine 50 mcg tablet 50 mcg PO DAILY #30 tabs 05/22/22 prednisolone 5 mg (48 tabs) See Rx Instructions .Route 07/06/22 tablets in a dose pack (Millipred .COMPLEX #70 ea DP) Results & Data (ED) Vital Signs Vital Signs - 24 hr 07/10/22 09:15 07/10/22 09:56 07/10/22 09:35 Temperature 36.4 C L Temperature Source Temporal Artery Scan Pulse Rate 92 H 83 Pulse Rate from SpO2 Sensor 80 Respiratory Rate 24 25 H Blood Pressure 121/69 Blood Pressure Mean 86 Pulse Oximetry 86 L 92 Oxygen Delivery Method Room Air Nasal Cannula Oxygen Flow Rate 2 Sepsis Recent Fever Within 48 Hours No Sepsis New/Unexplained Change in Mental Status N/A Sepsis Action Taken by Nursing No Action Required 07/10/22 10:00 07/10/22 10:30 Temperature Temperature Source Pulse Rate 82 71 Pulse Rate from SpO2 Sensor Respiratory Rate 23 20 Blood Pressure Blood Pressure Mean Pulse Oximetry Oxygen Delivery Method Oxygen Flow Rate Sepsis Recent Fever Within 48 Hours Sepsis New/Unexplained Change in Mental Status Sepsis Action Taken by Nursing Laboratory Data Result diagrams: 07/10/22 09:38 07/10/22 09:38 Lab Results 07/10/22 07/10/22 07/10/22 Range/Units 09:38 09:38 09:38 WBC 8.74 (4.8-10.8) K/ul RBC 4.96 (4.63-6.08) M/uL Hgb 16.1 (14.0-18.0) g/dl Hct 46.2 (40.1-51.0) % MCV 93.1 (80.0-100.0) fL MCH 32.5 (25.0-34.0) pg MCHC 34.8 (32.0-36.0) g/dL RDW Std Deviation 41.7 (36.4-46.3) fL RDW Coeff of Matt 12.1 (11.5-14.5) % Plt Count 216 (130-400) K/uL MPV 10.1 (9.4-12.4) fL Immature Gran % (Auto) 0.8 % Neut % (Auto) 79.0 % Lymph % (Auto) 8.7 % [place] % (Auto) 10.9 % Eos % (Auto) 0.1 % Baso % (Auto) 0.5 % Neut # (Auto) 6.91 H (1.4-6.5) K/uL Lymph # (Auto) 0.76 L (1.2-3.4) K/uL [place] # (Auto) 0.95 H (0.24-0.82) K/uL Eos # (Auto) 0.01 (0-0.50) K/uL Baso # (Auto) 0.04 (0-0.2) K/uL Immature Gran # (Auto) 0.07 H (0.00-0.02) K/uL PT 11.3 (9.0-12.0) Seconds INR 1.1 (0.9-1.1) Sodium 134 L (136-145) mmol/L Potassium 4.2 (3.5-5.1) mmol/L Chloride 99 (98-107) mmol/L Carbon Dioxide 26 (21-32) mmol/L Anion Gap 9 (3-11) BUN 28 H (6-23) mg/dl Creatinine 1.78 H (0.6-1.4) mg/dl Est Cr Clr Drug Dosing 30.2 ml/min Est GFR ( Amer) 38.9 ml/min Est GFR (Non-Af Amer) 33.6 ml/min BUN/Creatinine Ratio 15.7 (10-20) Glucose 100 H (70-99(Fasting)) mg/dl Calcium 10.0 (8.5-10.1) mg/dl Magnesium 1.9 (1.7-2.4) mg/dl Total Bilirubin 0.7 (0.2-1.0) mg/dl AST 19 (13-39) U/L ALT 18 (7-52) U/L Alkaline Phosphatase 75 (34-104) U/L Troponin I High Sens 237.7 H* D (0-20) pg/ml Total Protein 7.6 (6.0-8.3) gm/dl Albumin 4.0 (3.4-5.0) gm/dl Globulin 3.6 (2.5-4.0) gm/dl Albumin/Globulin Ratio 1.1 (0.9-2) TSH (0.300-4.500) uIu/ml SARS-CoV-2, RNA, NAAT (NEGATIVE) 07/10/22 07/10/22 Range/Units 09:38 10:00 WBC (4.8-10.8) K/ul RBC (4.63-6.08) M/uL Hgb (14.0-18.0) g/dl Hct (40.1-51.0) % MCV (80.0-100.0) fL MCH (25.0-34.0) pg MCHC (32.0-36.0) g/dL RDW Std Deviation (36.4-46.3) fL RDW Coeff of Matt (11.5-14.5) % Plt Count (130-400) K/uL MPV (9.4-12.4) fL Immature Gran % (Auto) % Neut % (Auto) % Lymph % (Auto) % [place] % (Auto) % Eos % (Auto) % Baso % (Auto) % Neut # (Auto) (1.4-6.5) K/uL Lymph # (Auto) (1.2-3.4) K/uL [place] # (Auto) (0.24-0.82) K/uL Eos # (Auto) (0-0.50) K/uL Baso # (Auto) (0-0.2) K/uL Immature Gran # (Auto) (0.00-0.02) K/uL PT (9.0-12.0) Seconds INR (0.9-1.1) Sodium (136-145) mmol/L Potassium (3.5-5.1) mmol/L Chloride (98-107) mmol/L Carbon Dioxide (21-32) mmol/L Anion Gap (3-11) BUN (6-23) mg/dl Creatinine (0.6-1.4) mg/dl Est Cr Clr Drug Dosing ml/min Est GFR ( Amer) ml/min Est GFR (Non-Af Amer) ml/min BUN/Creatinine Ratio (10-20) Glucose (70-99(Fasting)) mg/dl Calcium (8.5-10.1) mg/dl Magnesium (1.7-2.4) mg/dl Total Bilirubin (0.2-1.0) mg/dl AST (13-39) U/L ALT (7-52) U/L Alkaline Phosphatase (34-104) U/L Troponin I High Sens (0-20) pg/ml Total Protein (6.0-8.3) gm/dl Albumin (3.4-5.0) gm/dl Globulin (2.5-4.0) gm/dl Albumin/Globulin Ratio (0.9-2) TSH 3.003 (0.300-4.500) uIu/ml SARS-CoV-2, RNA, NAAT NEGATIVE (NEGATIVE) Administered Medications Heparin Sodium/Dextrose (Heparin Sodium/Dextrose) 25,000 units in 500 mls @ 27 mls/hr IV .[id number] VASHTI; Protocol Stop: 08/09/22 12:14 Last Admin: 07/10/22 12:47 Dose: 1,350 units/hr, 27 mls/hr Documented By: TOYA Co-signed By: KT Discontinued Medications Heparin Sodium (Porcine) (Heparin Sod (Porcine) 1000 Unit/Ml) 1 units IV NOW ONE Stop: 07/10/22 12:03 Last Admin: 07/10/22 12:49 Dose: 6,000 units Documented By: TOYA Co-signed By: NARESH Heparin Sodium/Dextrose (Heparin Iv Adult Wt-Based Standard With Bolus Protocol) 1 each IV NOW STA; Protocol Stop: 07/10/22 11:48 Last Admin: 07/10/22 14:02 Dose: Not Given Documented By: TOYA Ioversol (Optiray 320 500ml) 75 ml IV ONCE ONE Stop: 07/10/22 11:34 Last Admin: 07/10/22 11:33 Dose: 75 ml Documented By: SIMEON Imaging Data Radiologist's Impression: Chest CTA 07/10/22 09:43 CT angio chest PE protocol CT DOSE: 444.63 mGycm HISTORY: 86 years-old Male with PE, sob, hypoxic. Acute shortness of breath with hypoxia TECHNIQUE: Multiple CTA images of the chest were obtained after the intravenous administration of 75 ml Optiray. Coronal and sagittal MIPS were obtained from the axial data set and were submitted for review. All measurements were obtained according to NASCET criteria. A dose lowering technique was utilized adhering to the principles of ALARA. COMPARISON: Chest radiograph of same day, chest CT 06/19/2021 FINDINGS: CTA: The heart is mildly enlarged. No pericardial effusion. Extensive coronary artery calcifications. Atherosclerosis of the thoracic aorta without aneurysm or dissection. There is patency of the imaged great vessels. There is a large amount of bilateral pulmonary emboli involving lobar, segmental and subsegmental pulmonary arterial branches. Findings are most pronounced within the lower lobes. No central pulmonary embolus. Straightening of the intraventricular septum. CT CHEST: No thyroid nodule or lymphadenopathy identified. No pneumothorax, pleural effusion or overt pulmonary edema. Biapical pleural-parenchymal scarring. Subpleural reticulation with groundglass densities appear similar to prior. No suspicious pulmonary nodules or masses. No definite acute pulmonary infarct. The central airways appear generally patent. Distal esophageal wall thickening with small hiatal hernia. Subcentimeter hypodensity left hepatic lobe is too small to characterize. Unremarkable soft tissues. Degenerative changes of the spine and shoulders. IMPRESSION: 1. Extensive bilateral pulmonary emboli with evidence of right heart strain. 2. Mild chronic interstitial lung disease redemonstrated. 3. Small hiatal hernia with distal esophageal wall thickening. ACT 112: Negative or not required by law. The above report was generated using voice recognition software. It may contain grammatical, syntax or spelling errors. Electronically signed by: Jayce Christine M.D. 07/10/2022 11:53 AM Chest X-Ray 07/10/22 09:45 XR chest 1V portable CLINICAL HISTORY: sob, hypoxia TECHNIQUE: Single frontal radiograph of the chest was obtained. Comparison: Comparison is made to chest radiograph 06/25/2022 FINDINGS: No lines and tubes are seen. Calcified aortic knob is seen. The lungs are clear. No evidence of pleural effusion or pneumothorax. IMPRESSION: No acute chest disease. ACT 112: Negative or not required by law. Electronically signed by: Jeremy Duarte M.D. 07/10/2022 10:00 AM Discharge Plan Visit Data Chief Complaint: Weakness Stated Complaint: WEAKNESS ED Provider: Zev Mcmahon Discharge Problem: Bilateral pulmonary embolism, Hypoxia, Elevated troponin I level, Weakness Patient Disposition: Being Evaluated by Hospitalist Discharge Instructions Interventions: ED Discharge Assessment Last Done: 07/10/22 13:05
[2022-07-10 09:54] LABS: Basophils # (auto) 0.04 K/uL (0-0.2); Basophils % (auto) 0.5 %; Eosinophils # (auto) 0.01 K/uL (0-0.50); Eosinophils % (auto) 0.1 %; Hematocrit (blood only) 46.2 % (40.1-51.0); Hemoglobin 16.1 g/dl (14.0-18.0); Immature Granulocytes # (auto) 0.07 K/uL (0.00-0.02); Immature Granulocytes % (auto) 0.8 %; Lymphocytes # (auto) 0.76 K/uL (1.2-3.4); Lymphocytes % (auto) 8.7 %; Mean Corpuscular Hemoglobin 32.5 pg (25.0-34.0); Mean Corpuscular Hgb Conc 34.8 g/dL (32.0-36.0); Mean Corpuscular Volume 93.1 fL (80.0-100.0); Mean Platelet Volume 10.1 fL (9.4-12.4); Monocytes # (auto) 0.95 K/uL (0.24-0.82); Monocytes % (auto) 10.9 %; Neutrophils # (auto) 6.91 K/uL (1.4-6.5); Platelet Count 216 K/uL (130-400); RDW Coefficient of Variation 12.1 % (11.5-14.5); RDW Standard Deviation 41.7 fL (36.4-46.3); Red Blood Count 4.96 M/uL (4.63-6.08); White Blood Count 8.74 K/ul (4.8-10.8)
--- NOTE | 2022-07-10 10:01 | XRay Report ---
XR chest 1V portable CLINICAL HISTORY: sob, hypoxia TECHNIQUE: Single frontal radiograph of the chest was obtained. Comparison: Comparison is made to chest radiograph 06/25/2022 FINDINGS: No lines and tubes are seen. Calcified aortic knob is seen. The lungs are clear. No evidence of pleur al effusion or pneumothorax. IMPRESSION: No acute chest disease. ACT 112: Negative or not required by law. Electronically signed by: Jeremy Duarte M.D. 07/10/2022 10:00 AM
[2022-07-10 10:10] LABS: INR 1.1 (0.9-1.1); Prothrombin Time 11.3 Seconds (9.0-12.0)
[2022-07-10 10:23] LABS: Albumin Globulin Ratio 1.1 (0.9-2); BUN Creatinine Ratio 15.7 (10-20); Bilirubin,Total 0.7 mg/dl (0.2-1.0); Creatinine Clr Calc Pharmacy 30.2 ml/min; Est GFR (African American) 38.9 ml/min; Est GFR (Non-African American) 33.6 ml/min; Globulin 3.6 gm/dl (2.5-4.0); Magnesium 1.9 mg/dl (1.7-2.4); Potassium 4.2 mmol/L (3.5-5.1); Total Protein 7.6 gm/dl (6.0-8.3)
[2022-07-10 10:34] LABS: Troponin I High Sensitivity 237.7 pg/ml (0-20)
--- NOTE | 2022-07-10 11:05 | History & Physical Report ---
Date of Service July 10, 2022 Assessment & Plan (1) Bilateral pulmonary embolism: Plan: -Admit to PCU -Patient is currently afebrile, hemodynamically stable, and stable on 2L NC -Patient's CTPE has not been officially read yet, but by my read he has extensive BL PE's -Spoke to the patient and his regarding starting anticoagulation, they would like to start as his risks of not starting are far greater than the risk of bleeding at this time -Spoke with cardiology as he is approximately 11 months out from his heart cath and stent placement, they recommend holding plavix and continuing aspirin along with anticoagulation for his PE's -Continue to monitor on tele and pulse oximetry -Will obtain new TTE to monitor for heart failure -Heaprin bolus and drip already ordered by the ED, continue for now and transition to oral therapy prior to discharge -AM CBC and BMP (2) Hypoxia: Plan: -Likely related to new finding of BL PE's -Currently stable on 2L NC -Continue to monitor on tele and pulse oximetry -PRN O2 order is in (3) Elevated troponin I level: Plan: -Initial high sensitivity troponin significantly elevated at 237.7 -Patient is currently asymptomatic, likely related to demand from hypoxia and PE's -Will continue to trend troponin until peak (4) S/P right coronary artery (RCA) stent placement: Plan: -Continue aspirin, hold plavix with starting anticoagulation for PE's as recommended per cardiology (5) Low energy: Plan: -Was started on long prednisone taper by cardiology after his visit on 07/06 -Today is day 4 of the 40 mg 7 day taper, will hold additional for now as he is not at risk for adrenal insufficiency with that short of treatment (6) Hypothyroidism: Plan: -Continue levothyroxine (7) Interstitial lung disease: Plan: -Currently stable on 2L NS -Will add prn albuterol for wheezing (8) Vitamin D deficiency: Plan: -Continue vitamin D (9) GERD (gastroesophageal reflux disease): Plan: -Continue famotidine (10) Dementia: Plan: -Continue Namenda and Donepezil (11) BPH (benign prostatic hyperplasia): Plan: -Continue flomax (12) Hyperlipidemia: Plan: -Has been off atorvastatin for leg cramps, could consider starting another statin prior to discharge (13) Hypertension: Plan: -Has been weaned off of carvedilol by cardiology earlier in the month -Currently hemodynamically stable -Hold telmisartan-HCTZ for now with his CKD and just receiving CT contrast, can restart if kidney function remains stable and he becomes hypertensive Plan The patient was discussed with Dr. Daniels at the time of the admission History of Present Illness Chief Complaint: Weakness Primary Care Provider: Pino Tucker MD Mr. Valencia is an 86 year old male with a history of Asthma, Interstitial Lung Disease, GERD, Dementia, BPH, Hypertension, Hyperlipidemia, CVA, Hypothyroidism, chronically elevated troponin, and CAD s/p NSTEMI s/p Ostial RCA Drug Eluting Stent 08/11/21 who presented to the [facility] ED on 07/10/22 with a chief complaint of ongoing weakness and SOB. In the ED the patient was found to be afebrile, hemodynamically stable, hypoxic at 86% on RA. Labs were remarkable for WBC WNL, sodium of 134, stable renal function at 1.78, TSH of 3.003, covid negative, and first high sensitivity troponin of 237.7. Chest xray was negative for acute findings. ECG is showing Nonspecific T wave abnormality now evident in Inferior leads, Nonspecific T wave abnormality now evident in Anterior leads, and Nonspecific T wave abnormality no longer evident in Lateral leads. Prio to admission the patient was ordered a CTPE study. Per chart review, the patient was recently seen in the [facility] Cardiology clinic for the same complaints. They ordered CK, CRP, and ESR, CK was WNL, CRP was elevated at 1.11, and ESR was also elevated at 23. They had already tapered the patient off of his coreg for the same complaints but this did not improve his symptoms. Per the Cardiology note, the patient's Atorvastatin had been held by his PCP due to ongoing muscle aches. They started the patient on a long predn isone taper 40 mg daily x 1 week, then 30 mg x 1 week, then 20 mg x 1 week, then 10 mg x 1 week, then discontinue. They recommended rheumatology consult if this workup showed any abnormalities. Per review, the patient had an WON obtained on 07/31/21 and was negative. The patient had a stress echo performed on 01/25/22 and was read as a normal exercise echo without symptoms or evidence of inducible ischemia. The patient was last seen by Pulmonology on 05/09/22, they reviewed his PFT's obtained that day and they were improved compared to his previous. 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 At the time of the exam the patient was resting comfortably in bed in no acute distress with his sitting bedside. The patient was able to get out of bed and ambulate to the restroom without issue prior to my exam. The majority of the history was obtained from the patient's /POA due to his baseline mental status. She states that his fatigue and SOB have been progressing since his heart cath. She states that his symptoms are controlled when he is at rest but he is experiencing significant SOB and fatigue with exertion. Until today, the patient has not been experiencing chest pain with his previous symptoms or exertion. At the time of my exam the patient denies current chest pain or tightness. He states that he has been experiencing intermittent chest tightness that has been in the upper BL lung mcgraw and is not constant and does not radiate. I spoke to them regarding code status, at this time they would like him to be a DNR/DNI, his /POA would make decisions for him if he cannot make decisions himself. During my exam the ED physician came back into the room to let us know that the patient has extensive, BL PE's on CTPE from today. I spoke with the patient and his regarding the risks and benefits of anticoagulation and holding anticoagulation. They expressed understanding and would like to start anticoagulation at this time. Allergies Allergy/AdvReac Type Severity Reaction Status Date / Time No Known Allergies Allergy Mild Verified 07/06/22 15:10 Home Medications Medication Instructions Recorded Confirmed Type memantine 10 mg tablet (Namenda) 5 mg PO BID 11/29/20 07/10/22 History sildenafil 100 mg tablet 100 mg PO UD PRN Erectile 11/29/20 07/10/22 History Dysfunction famotidine 40 mg tablet 40 mg PO BID #0 tabs 11/30/20 07/10/22 Rx donepezil 10 mg tablet 10 mg PO QPM 08/02/21 07/10/22 History cholecalciferol (vitamin D3) 25 50 mcg PO DAILY 08/11/21 07/10/22 History mcg (1,000 unit) capsule (Vitamin D3) ferrous sulfate 325 mg (65 mg 325 mg PO DAILY 08/11/21 07/10/22 History iron) tablet atorvastatin 40 mg tablet 40 mg PO DAILY 08/25/21 07/10/22 History nitroglycerin 0.4 mg sublingual 0.4 mg sublingual UD PRN chest pain 08/25/21 07/10/22 History tablet (Nitrostat) aspirin 81 mg tablet,delayed 81 mg PO DAILY 09/11/21 07/10/22 History release clopidogrel 75 mg tablet 75 mg PO QAM #90 tabs 12/06/21 07/10/22 Rx carvedilol 3.125 mg tablet 3.125 mg PO BID #180 tabs 01/01/22 07/10/22 Rx tamsulosin 0.4 mg capsule 0.4 mg PO DAILY 03/28/22 07/10/22 History levothyroxine 50 mcg tablet 50 mcg PO DAILY #30 tabs 05/22/22 07/10/22 Rx telmisartan 40 1 tab PO DAILY 06/28/22 07/10/22 History mg-hydrochlorothiazide 12.5 mg tablet prednisolone 5 mg (48 tabs) See Rx Instructions .Route 07/06/22 07/10/22 Rx tablets in a dose pack (Gobblered .COMPLEX #70 ea DP) Past Med/Surg History Medical History (Updated 07/10/22 @ 12:18 by Blake Martin PA-C) Asthma STABLE BPH (benign prostatic hyperplasia) Chronic cough Chronic kidney disease, stage III (moderate) JURADO (dyspnea on exertion) started ~3 months ago. 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 Weakness Weight loss, unintentional 10-15lbs in the last ~3-4 months Surgical History (Updated 06/28/22 @ 11:36 by Beck Fuentes PA-C) History of colonoscopy History of ear surgery MASTOID SURGERY (1937) History of herniorrhaphy inguinal hernia repair Family History Son FHx: heart disease History of heart artery stent FHx: myocardial infarction, Onset Age: 58 Father FHx: heart disease Brother FHx: heart disease Sister FHx: heart disease FHx: cancer Other No family history of adverse response to anesthesia Social History Smoking Status: Never smoker Second Hand Exposure: No; Hx Alcohol Use: No Hx Substance Use: No Preferred Language: Japanese Communication Ability: Effective Nozzle Worker Required: No Beliefs That Will Affect Care: None marital status: Current Living Situation: Spouse current occupation: Retired How many Children do You have: 4 Feels Safe at Home: Yes Assistive Devices: None Review of Systems Review of Systems: Denies current fever, chills, headache, changes in vision, hearing, taste, and smell, chest pain, abdominal pain, nausea, vomiting, diarrhea, hematemesis, melena, dysuria, hematuria, and recent falls. All systems have been reviewed and are otherwise negative. Physical Exam Physical Exam: Physical Exam: General: In no acute distress, stated age, well-nourished, good hygiene HEENT: Normocephalic, atraumatic, no scleral icterus, pupils around round, symmetrical, and reactive to light, moist mucus membranes, trachea midline, no thyromegaly Chest/Pulm: No respiratory distress, symmetrical chest expansion, expiratory wheezing noted throughout Cardiac: RRR, no murmurs noted Abdomen: Negative for ascites and bruising, normoactive bowel sounds, soft, non-tender to palpation throughout Musculoskeletal: Symmetrical and without signs of acute trauma, upper and lower extremities with full ROM, no atrophy, spasticity, or flaccidity Extremities: Radial, dorsalis pedis, and posterior tibial pulses are intact and symmetrical, no edema noted in the BL LE's Skin: Warm, dry, no rashes , lesions, or scars noted Neuro: Alert and oriented to person, place, month, year, and president, no focal defects, CN II-XII tested and intact, finger to nose test negative, no tremors noted Psych: No acute distress, calm and cooperative during the exam Results & Data Results & Data ([facility]) Vital Signs (Past 12 Hours) Vital Signs Temp Pulse Resp BP Pulse Ox O2 Del Method O2 Flow Rate 07/10/22 09:56 Nasal Cannula 2 07/10/22 09:15 36.4 C L 92 H 24 121/69 86 L Room Air Laboratory Results Abnormal lab results 07/10/22 07/10/22 Range/Units 09:38 09:38 Neut # (Auto) 6.91 H (1.4-6.5) K/uL Lymph # (Auto) 0.76 L (1.2-3.4) K/uL [place] # (Auto) 0.95 H (0.24-0.82) K/uL Immature Gran # (Auto) 0.07 H (0.00-0.02) K/uL Sodium 134 L (136-145) mmol/L BUN 28 H (6-23) mg/dl Creatinine 1.78 H (0.6-1.4) mg/dl Glucose 100 H (70-99(Fasting)) mg/dl Troponin I High Sens 237.7 H* D (0-20) pg/ml Diagnostic Findings Chest X-Ray 07/10/22 09:45 XR chest 1V portable CLINICAL HISTORY: sob, hypoxia TECHNIQUE: Single frontal radiograph of the chest was obtained. Comparison: Comparison is made to chest radiograph 06/25/2022 FINDINGS: No lines and tubes are seen. Calcified aortic knob is seen. The lungs are clear. No evidence of pleural effusion or pneumothorax. IMPRESSION: No acute chest disease. ACT 112: Negative or not required by law. Electronically signed by: Jeremy Duarte M.D. 07/10/2022 10:00 AM ECG Additional Comments: Poor data quality, interpretation may be adversely affected Normal sinus rhythm with sinus arrhythmia Possible Anterior infarct (cited on or before 10-JUL-2022) Abnormal ECG When compared with ECG of 25-JUN-2022 11:35, Nonspecific T wave abnormality now evident in Inferior leads Nonspecific T wave abnormality now evident in Anterior leads Nonspecific T wave abnormality no longer evident in Lateral leads Code Status & VTE Plan Code Status DNR/DNI VTE Prophylaxis Plan VTE Prophylaxis will be ordered: Yes Supervising Physician Co-Signing Physician Notes Patient seen and examined, chart reviewed, case discussed with Blake Martin PA-C and I agree with the assessment and plan as above except as otherwise noted Labs and images reviewed Sudeep Valencia is a 86-year-old male with a past medical history of hypot hyroidism, GERD, exertional chest pain, interstitial lung disease of unclear etiology, CKD 3, hyperlipidemia, hypertension, CAD who presents with progressive weakness over the last 12 months in addition to acute worsening of his exertional shortness of breath. Endorses intermittent chronic cough. 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 thinks he had a slight amount of chest tightness previously, no chest tightness at admission and denies any chest pain. Follows with cardiology for CAD with history of RCA stent placement, last seen 07/06/2022. EKGs were noted to have been normal, was noted to have diffuse muscle aches in addition to his fatigue and inflammatory initial work-up was ordered. He began a prednisone taper at that visit, atorvastatin was held, and he was continued on DAPT. Of note his low energy/fatigue did precede his [place] but is continued to worsen. Outpatient CRP was elevated to 1.11 (last normal 07/2021), CK was normal, ESR is 23 (was 25 07/2021), Lyme testing was negative, WNO/reflex 07/2021 was normal. Last PFTs 05/15/2022: FVC 94% predicted, FEV1 93% predicted, FEV1/FVC 68 (97% predicted). Overall normal spirometry and lung volumes, mild reduction in DLCO, FVC stable compared to 09/2021. History of PCI 2020. Patient did have a stress echo 01/25/2022 which did not show inducible ischemia, normal augmentation of all segments without regional wall motion abnormalities at peak exertion, and which reached a target heart rate of 113/6 minutes 7 METS. On ER evaluation he has no leukocytosis, hemoglobin is 16.1, sodium 134, admitting creatinine is 1.78 with a baseline ranging from approximately 1.61.83. BSG 100, calcium is normal. Patient with troponin in the 30s 06/25, is elevated to 237 without territorial EKG changes or chest pain. TSH was normal. Free T4 pending. COVID is negative. CXR shows no acute disease. EKG 06/25: Normal sinus rhythm, QT 409, no territorial ST wave changes or T wave inversions. Acute shortness of breath with hypoxia 2/2 PE. Heparin started. Troponin elevated without chest pain, suspect demand in the setting of PE. Recent negative stress echo 01/2022. Repeat echo pending. CAD with history of PCI. DAPT score -1. At home has been on DAPT since PCI of ostial RCA with single drug-eluting stent (3.25 x 15 mm Xience; postdilated with 3.5 NC) 08/2021. Discussed with cards, will moved to aspirin monotherapy and continue anticoagulation. Carvedilol weaned and atorvastatin held for fatigue and myalgias as outpatient CKD: 3B. Renally dose medications. Telmisartan temporarily held postcontrast. Continue BP control Hypertension: Losartan temporarily held, resume tomorrow if creatinine baseline. Continue hydrochlorothiazide. Normotensive. PG Care Time/CCT Total # of Minutes Spent Total Time Spent with Patient: Total time spent is greater than 50% in coordination of care (as documented) at patient's floor/unit and/or counseling patient: [place] [address] Initial Inpt Care Lvl 3 Patient Type Established History Comprehensive Exam Comprehensive Medical Decision Making High Complexity Diagnoses Bilateral pulmonary embolism I26.99 Hypoxia R09.02 Elevated troponin I level R77.8 S/P right coronary artery (RCA) stent placement Z95.5 Low energy R53.83 Hypothyroidism E03.9 Interstitial lung disease J84.9 Vitamin D deficiency E55.9 GERD (gastroesophageal reflux disease) K21.9 Dementia F03.90 BPH (benign prostatic hyperplasia) N40.0 Hyperlipidemia E78.5 Hypertension I10
[2022-07-10] MEDS ORDERED: OPTIRAY 320 500ml IV ONE (11:33)
[2022-07-10] MEDS ORDERED: Heparin IV Adult Wt-Based Standard WITH Bolus Protocol IV STA (11:47)
--- NOTE | 2022-07-10 11:55 | CT Scan Report ---
CT angio chest PE protocol CT DOSE: 444.63 mGycm HISTORY: 86 years-old Male with PE, sob, hypoxic. Acute shortness of breath with hypoxia TECHNIQUE: Multiple CTA images of the chest were obtained after the intravenous administration of 75 ml Optiray. Coronal and sagittal MIPS were obtained from the axial data set and were submitted for [employer]. All measurements were obtained according to NASCET criteria. A dose lowering technique was ut ilized adhering to the principles of ALARA. COMPARISON: Chest radiograph of same day, chest CT 06/19/2021 FINDINGS: CTA: The heart is mildly enlarged. No pericardial effusion. Extensive coronary artery calcifications. Athe rosclerosis of the thoracic aorta without aneurysm or dissection. There is patency of the imaged grea t vessels. There is a large amount of bilateral pulmonary emboli involving lobar, segmental and subse gmental pulmonary arterial branches. Findings are most pronounced within the lower lobes. No central pulmonary embolus. Straightening of the intraventricular septum. CT CHEST: No thyroid nodule or lymphadenopathy identified. No pneumothorax, pleural effusion or overt pulmonary edema. Biapical pleural-parenchymal scarring. Subpleural reticulation with groundglass densities izabela ear similar to prior. No suspicious pulmonary nodules or masses. No definite acute pulmonary infarct. The central airways appear generally patent. Distal esophageal wall thickening with small hiatal hernia. Subcentimeter hypodensity left hepatic lo be is too small to characterize. Unremarkable soft tissues. Degenerative changes of the spine and saeid ulders. IMPRESSION: 1. Extensive bilateral pulmonary emboli with evidence of right heart strain. 2. Mild chronic interstitial lung disease redemonstrated. 3. Small hiatal hernia with distal esophageal wall thickening. ACT 112: Negative or not required by law. The above report was generated using voice recognition software. It may contain grammatical, syntax o r spelling errors. Electronically signed by: Jayce Christine M.D. 07/10/2022 11:53 AM
[2022-07-10] MEDS ORDERED: HEPARIN SOD (PORCINE) 1000 UNIT/ML IV ONE (12:02)
[2022-07-10] MEDS: HEPARIN SODIUM/DEXTROSE 25,000 UNITS/500 ML BAG IV SCH (12:47)
[2022-07-10] MEDS ORDERED: ACETAMINOPHEN 325 MG TAB PO PRN (13:19)
[2022-07-10] MEDS ORDERED: ALBUTEROL 0.5% NEB SOLN 2.5 MG/0.5 ML VIAL NEB PRN (13:19)
[2022-07-10 14:08] LABS: Partial Thromboplastin Ratio 0.9; Partial Thromboplastin Time 25.3 Seconds (21.0-31.0)
[2022-07-10] MEDS ORDERED: METOPROLOL TARTRATE 1 MG/ML VIAL IV PRN (17:31)
--- NOTE | 2022-07-10 18:02 | XCELERA ---
[id number]
--- NOTE | 2022-07-10 18:28 | Electrocardiogram Report ---
Test Reason : Blood Pressure : / mmHG Vent. Rate : 079 BPM Atrial Rate : 079 BPM P-R Int : 178 ms QRS Dur : 078 ms QT Int : 354 ms P-R-T Axes : 054 008 022 degrees QTc Int : 405 ms Poor data quality, interpretation may be adversely affected Normal sinus rhythm with sinus arrhythmia When compared with ECG of 25-JUN-2022 11:35, Nonspecific T wave abnormality now evident in Inferior leads Nonspecific T wave abnormality now evident in Anterior leads Nonspecific T wave abnormality no longer evident in Lateral leads Confirmed by Yonatan Siddiqui ([id number]) on 07/10/2022 6:27:51 PM Referred By: REFERRED SELF Confirmed By:Aki Siddiqui
[2022-07-10 20:22] LABS: Partial Thromboplastin Ratio 4.4
[2022-07-10 20:31] LABS: Partial Thromboplastin Time 121.3 Seconds (21.0-31.0)
[2022-07-10] MEDS ORDERED: FAMOTIDINE 40 MG TABLET PO SCH (21:00)
[2022-07-10] MEDS: FAMOTIDINE 20 MG TAB PO SCH (21:00)
[2022-07-10] MEDS: DONEPEZIL HCL 10 MG TAB PO SCH (21:07)
[2022-07-10] MEDS: MEMANTINE HCL 5 MG TAB PO SCH (21:07)
[2022-07-11 02:24] LABS: Appearance Urine Clear (Clear); Bacteria Urine Automated Negative (Negative); Bilirubin Urine Negative (Negative); Blood Urine Negative (Negative); Cast Urine Automated 0 /lpf (0-5); Color Urine Yellow; Epithelial Cell Urine Auto 0-5 /lpf (0-5); Glucose Urine UA Negative (Negative); Ketones Urine Negative (Negative); Leukocyte Esterase Urine Negative (Negative); Nitrite Urine Negative (Negative); Protein Urine 1+ (Negative); RBC Urine Automated 0-4 /hpf (0-4); Specific Gravity Urine 1.031 (1.000-1.030); Urobilinogen Urine Negative (Negative); pH Urine 6.5 (4.5-7.5)
[2022-07-11 04:04] LABS: Hemoglobin 14.4 g/dl (14.0-18.0); Mean Corpuscular Hemoglobin 32.8 pg (25.0-34.0); Mean Corpuscular Hgb Conc 35.1 g/dL (32.0-36.0); Mean Corpuscular Volume 93.4 fL (80.0-100.0); Mean Platelet Volume 10.1 fL (9.4-12.4); Platelet Count 197 K/uL (130-400); RDW Coefficient of Variation 12.4 % (11.5-14.5); RDW Standard Deviation 42.9 fL (36.4-46.3); Red Blood Count 4.39 M/uL (4.63-6.08); White Blood Count 8.56 K/ul (4.8-10.8)
[2022-07-11 04:29] LABS: Partial Thromboplastin Ratio 2.7
[2022-07-11 04:38] LABS: BUN Creatinine Ratio 17.3 (10-20); Calcium 9.2 mg/dl (8.5-10.1); Est GFR (African American) 38.6 ml/min; Est GFR (Non-African American) 33.3 ml/min; Potassium 4.2 mmol/L (3.5-5.1)
[2022-07-11] MEDS: LEVOTHYROXINE SODIUM 50 MCG TABLET PO SCH (06:05)
[2022-07-11] MEDS: MEMANTINE HCL 5 MG TAB PO SCH ×2 (09:08→20:09)
[2022-07-11] MEDS: CHOLECALCIFEROL 1,000 UNITS 25 MCG TAB PO SCH (09:09)
[2022-07-11] MEDS: FERROUS SULFATE 325 MG TAB PO SCH (09:09)
[2022-07-11] MEDS: ASPIRIN 81 MG ECTAB PO SCH (09:09)
[2022-07-11] MEDS: TAMSULOSIN HCL 0.4 MG CAP PO SCH (09:09)
[2022-07-11] MEDS: FAMOTIDINE 20 MG TAB PO SCH ×2 (09:12→20:09)
[2022-07-11] MEDS: HEPARIN SODIUM/DEXTROSE 25,000 UNITS/500 ML BAG IV SCH (11:36)
[2022-07-11] MEDS: APIXABAN 5 MG TABLET PO SCH ×2 (12:08→23:45)
--- NOTE | 2022-07-11 13:17 | Hospitalist Progress Note ---
Date of Service July 11, 2022 Assessment & Plan (1) Bilateral pulmonary embolism: Plan: -Patient presents with worsening weakness, sob -Found to have bilateral PE on CTA -He is approximately 11 months out from his heart cath and stent placement, cardiology recommend holding plavix and continuing aspirin along with anticoagulation for his PE's -2 D ECHO did not show any evidence of RV heart strain as seen initially on CTA -Initially started on Heparin by weight -Now transitioned to Eliquis 10mg BID x 7 days, then subsequently 5mg BID (2) Hypoxia: Plan: -Likely related to new finding of BL PE's -Now resolved -saturating well on RA (3) Elevated troponin I level: Plan: -Initial high sensitivity troponin significantly elevated at 237.7 -Patient is currently asymptomatic, likely related to demand from hypoxia and PE's -Will continue to trend troponin until peak (4) S/P right coronary artery (RCA) stent placement: Plan: -Continue aspirin, hold plavix with starting anticoagulation for PE's as recommended per cardiology (5) Low energy: Plan: -Was started on long prednisone taper by cardiology after his visit on 07/06 -Today is day 4 of the 40 mg 7 day taper, will hold additional for now as he is not at risk for adrenal insufficiency with that short of treatment (6) Hypothyroidism: Plan: -Continue levothyroxine (7) Interstitial lung disease: Plan: -Currently stable on 2L NS -Will add prn albuterol for wheezing (8) Vitamin D deficiency: Plan: -Continue vitamin D (9) GERD (gastroesophageal reflux disease): Plan: -Continue famotidine (10) Dementia: Plan: -Continue Namenda and Donepezil (11) BPH (benign prostatic hyperplasia): Plan: -Continue flomax (12) Hyperlipidemia: Plan: -Has been off atorvastatin for leg cramps, could consider starting another statin prior to discharge (13) Hypertension: Plan: -Has been weaned off of carvedilol by cardiology earlier in the month -Currently hemodynamically stable -Hold telmisartan-HCTZ for now with his CKD and just receiving CT contrast, can restart if kidney function remains stable and he becomes hypertensive Plan d/c in the next 24 hrs Admission and Anticipated Discharge Date Admission Date: July 10, 2022 Subjective patient seen and examined, denies sob or chest pain Review of Systems Review of Systems: All systems reviewed are negative, apart from the ones contained in the history. Physical Exam Physical Exam: The patient is awake, alert and oriented 3, well developed and well nourished, normocephalic and atraumatic, lying in bed and in no acute distress. HEENT--PERRL, EOMI, mucous membranes and oropharynx mildly dry Neck--supple. No JVD. No bruits. Thyroid normal, trachea midline, no ad enopathy. Heart--normal S1 and S2. No murmurs, rubs or gallops. Lungs--clear bilaterally, no respiratory distress, no accessory muscle use. Abdomen--normal bowel sounds and soft. Mild epigastric and left sided abdominal pain Extremities--no cyanosis or clubbing. No edema. Dermatologic--normal skin turgor, normal color, no abnormal lymph nodes, no rash. Neurologic--cranial nerves II through XII grossly intact. Rheumatologic--normal range of motion. Psychiatric--normal affect. Results & Data Results & Data ([facility]) Vital Signs (Past 12 Hours) Vital Signs Temp Pulse Pulse Resp BP Pulse Ox O2 Del Method 07/11/22 09:00 Room Air 07/11/22 10:46 98.1 F 72 18 123/67 95 Room Air 07/11/22 07:45 98.4 F 79 18 152/89 H 95 Room Air 07/11/22 07:00 68 07/11/22 03:59 97.5 F L 81 18 140/76 96 Nasal Cannula O2 Flow Rate 07/11/22 09:00 07/11/22 10:46 07/11/22 07:45 07/11/22 07:00 07/11/22 03:59 1.5 PG Care Time/CCT Total # of Minutes Spent Total Time Spent with Patient: Total time spent is greater than 50% in coordination of care (as documented) at patient's floor/unit and/or counseling patient: Coding Level of Care Code 17223 Subseq Hosp Care Lvl 2 Diagnoses Bilateral pulmonary embolism I26.99 Hypoxia R09.02 Elevated troponin I level R77.8 S/P right coronary artery (RCA) stent placement Z95.5 Low energy R53.83 Hypothyroidism E03.9 Interstitial lung disease J84.9 Vitamin D deficiency E55.9 GERD (gastroesophageal reflux disease) K21.9 Dementia F03.90 BPH (benign prostatic hyperplasia) N40.0 Hyperlipidemia E78.5 Hypertension I10 Time Spent (min) 35
[2022-07-11] MEDS: DONEPEZIL HCL 10 MG TAB PO SCH (20:10)
[2022-07-12] MEDS: LEVOTHYROXINE SODIUM 50 MCG TABLET PO SCH (06:11)
[2022-07-12 06:54] LABS: Hematocrit (blood only) 44.3 % (40.1-51.0); Hemoglobin 15.3 g/dl (14.0-18.0); Mean Corpuscular Hemoglobin 32.6 pg (25.0-34.0); Mean Corpuscular Hgb Conc 34.5 g/dL (32.0-36.0); Mean Corpuscular Volume 94.3 fL (80.0-100.0); Platelet Count 206 K/uL (130-400); RDW Standard Deviation 42.3 fL (36.4-46.3); White Blood Count 7.24 K/ul (4.8-10.8)
[2022-07-12 07:25] LABS: BUN Creatinine Ratio 21.5 (10-20); Calcium 9.2 mg/dl (8.5-10.1); Creatinine Clr Calc Pharmacy 30.4 ml/min; Est GFR (African American) 39.2 ml/min; Est GFR (Non-African American) 33.8 ml/min
[2022-07-12] MEDS: MEMANTINE HCL 5 MG TAB PO SCH (08:56)
[2022-07-12] MEDS: CHOLECALCIFEROL 1,000 UNITS 25 MCG TAB PO SCH (08:56)
[2022-07-12] MEDS: TAMSULOSIN HCL 0.4 MG CAP PO SCH (08:56)
[2022-07-12] MEDS: FAMOTIDINE 20 MG TAB PO SCH (08:56)
[2022-07-12] MEDS: ASPIRIN 81 MG ECTAB PO SCH (08:56)
[2022-07-12] MEDS: FERROUS SULFATE 325 MG TAB PO SCH (08:57)
[2022-07-12] MEDS: APIXABAN 5 MG TABLET PO SCH (11:39)
--- NOTE | 2022-07-12 12:42 | Discharge Summary ---
Date of Service July 12, 2022 Admission HPI Per Admitting Provider Mr. Valencia is an 86 year old male with a history of Asthma, Interstitial Lung Disease, GERD, Dementia, BPH, Hypertension, Hyperlipidemia, CVA, Hypothyroidism, chronically elevated troponin, and CAD s/p NSTEMI s/p Ostial RCA Drug Eluting Stent 08/11/21 who presented to the [facility] ED on 07/10/22 with a chief complaint of ongoing weakness and SOB. In the ED the patient was found to be afebrile, hemodynamically stable, hypoxic at 86% on RA. Labs were remarkable for WBC WNL, sodium of 134, stable renal function at 1.78, TSH of 3.003, covid negative, and first high sensitivity troponin of 237.7. Chest xray was negative for acute findings. ECG is showing Nonspecific T wave abnormality now evident in Inferior leads, Nonspecific T wave abnormality now evident in Anterior leads, and Nonspecific T wave abnormality no longer evident in Lateral leads. Prio to admission the patient was ordered a CTPE study. Per chart review, the patient was recently seen in the [facility] Cardiology clinic for the same complaints. They ordered CK, CRP, and ESR, CK was WNL, CRP was elevated at 1.11, and ESR was also elevated at 23. They had already tapered the patient off of his coreg for the same complaints but this did not improve his symptoms. Per the Cardiology note, the patient's Atorvastatin had been held by his PCP due to ongoing muscle aches. They started the patient on a long prednisone taper 40 mg daily x 1 week, then 30 mg x 1 week, then 20 mg x 1 week, then 10 mg x 1 week, then discontinue. They recommended rheumatology consult if this workup showed any abnormalities. Per review, the patient had an WON obtained on 07/31/21 and was negative. The patient had a stress echo performed on 01/25/22 and was read as a normal exercise echo without symptoms or evidence of inducible ischemia. The patient was last seen by Pulmonology on 05/09/22, they reviewed his PFT's obtained that day and they were improved compared to his previous. 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 At the time of the exam the patient was resting comfortably in bed in no acute distress with his sitting bedside. The patient was able to get out of bed and ambulate to the restroom without issue prior to my exam. The majority of the history was obtained from the patient's /POA due to his baseline mental status. She states that his fatigue and SOB have been progressing since his heart cath. She states that his symptoms are controlled when he is at rest but he is experiencing significant SOB and fatigue with exertion. Until today, the patient has not been experiencing chest pain with his previous symptoms or exertion. At the time of my exam the patient denies current chest pain or tightness. He states that he has been experiencing intermittent chest tightness that has been in the upper BL lung mcgraw and is not constant and does not radiate. I spoke to them regarding code status, at this time they would like him to be a DNR/DNI, his /POA would make decisions for him if he cannot make decisions himself. During my exam the ED physician came back into the room to let us know that the patient has extensive, BL PE's on CTPE from today. I spoke with the patient and his regarding the risks and benefits of anticoagulation and holding a nticoagulation. They expressed understanding and would like to start anticoagulation at this time. Principal Diagnosis acute bilateral PE Discharge Exam The patient is awake, alert and oriented 3, well developed and well nourished, normocephalic and atraumatic, lying in bed and in no acute distress. HEENT--PERRL, EOMI, mucous membranes and oropharynx mildly dry Neck--supple. No JVD. No bruits. Thyroid normal, trachea midline, no adenopathy. Heart--normal S1 and S2. No murmurs, rubs or gallops. Lungs--clear bilaterally, no respiratory distress, no accessory muscle use. Abdomen--normal bowel sounds and soft. Mild epigastric and left sided abdominal pain Extremities--no cyanosis or clubbing. No edema. Dermatologic--normal skin turgor, normal color, no abnormal lymph nodes, no rash. Neurologic--cranial nerves II through XII grossly intact. Rheumatologic--normal range of motion. Psychiatric--normal affect. Discharge Data Allergies Allergy/AdvReac Type Severity Reaction Status Date / Time No Known Allergies Allergy Mild Verified 10/28/22 15:10 Consultations 07/10/22 11:01 ED Decision to Admit Stat Ordered Studies 07/10/22 09:43 CT angio chest PE protocol Stat Hospital Course (1) Bilateral pulmonary embolism: -Patient presents with worsening weakness, sob -Found to have bilateral PE on CTA, unprovoked -He is approximately 11 months out from his heart cath and stent placement, cardiology recommend holding plavix and continuing aspirin along with anticoagulation for his PE's -2 D ECHO did not show any evidence of RV heart strain as seen initially on CTA -Initially started on Heparin by weight -Now transitioned to Eliquis 10mg BID x 7 days, then subsequently 5mg BID (2) Hypoxia: -Likely related to new finding of BL PE's -Now resolved -saturating well on RA (3) Elevated troponin I level: -Initial high sensitivity troponin significantly elevated at 237.7 -Patient is currently asymptomatic, likely related to demand from hypoxia and PE's -Will continue to trend troponin until peak (4) S/P right coronary artery (RCA) stent placement: -Continue aspirin, hold plavix with starting anticoagulation for PE's as recommended per cardiology (5) Low energy: -Was started on long prednisone taper by cardiology after his visit on 07/06 -Today is day 4 of the 40 mg 7 day taper, will hold additional for now as he is not at risk for adrenal insufficiency with that short of treatment -discontinue upon d/c (6) Hypothyroidism: -Continue levothyroxine (7) Interstitial lung disease: -Currently stable on 2L NS -Will add prn albuterol for wheezing (8) Vitamin D deficiency: -Continue vitamin D (9) GERD (gastroesophageal reflux disease): -Continue famotidine (10) Dementia: -Continue Namenda and Donepezil (11) BPH (benign prostatic hyperplasia): -Continue flomax (12) Hyperlipidemia: -Has been off atorvastatin for leg cramps, could consider starting another statin prior to discharge (13) Hypertension: -Has been weaned off of carvedilol by cardiology earlier in the month -Currently hemodynamically stable -Hold telmisartan-HCTZ for now with his CKD and just receiving CT contrast, can restart if kidney function remains stable and he becomes hypertensive Plan d/c in the next 24 hrs Total Time Total Time Spent Total Time Spent (In Minutes): 35 Discharge Plan Discharge Items Patient Disposition: Home - Self-Care Reason For Visit: WEAKNESS Discharge Diagnosis: Bilateral acute PE Activity: Resume your previous activity Non-emergency contact: Primary Care Provider Call non-emergency contact if: you have any medication questions Follow-up/Referrals: Pino Tucker MD [Primary Care Provider] - (Please call office to schedule a follow up appointment) Diet: Regular Addtl Attending Provider Instructions: please make appointment to follow up with your regular PCP Pending Studies at Discharge: Yes Studies:: hypercoagulation studies Stand-Alone Forms: My [facility] [employer], Smoking Cessation Medications and DC Order Prescriptions: New Eliquis 5 mg Tablet 10 mg PO Q12H 6 Days Qty: 24 0RF Eliquis 5 mg (74 tabs) tablets,dose pack 5 mg PO BID Qty: 74 0RF Continued carvedilol 3.125 mg tablet 3.125 mg PO BID Qty: 180 3RF Rx Instructions: must administer with a meal/food levothyroxine 50 mcg tablet 50 mcg PO DAILY Qty: 30 3RF aspirin 81 mg tablet,delayed release (DR/EC) 81 mg PO DAILY tamsulosin 0.4 mg capsule 0.4 mg PO DAILY telmisartan-hydrochlorothiazid 40-12.5 mg tablet 1 tab PO DAILY sildenafil 100 mg tablet 100 mg PO UD PRN (Reason: Erectile Dysfunction) memantine [Namenda] 10 mg tablet 5 mg PO BID famotidine 40 mg tablet 40 mg PO BID Qty: 0 0RF donepezil 10 mg Tablet 10 mg PO QPM ferrous sulfate 325 mg (65 mg iron) Tablet 325 mg PO DAILY cholecalciferol (vitamin D3) [Vitamin D3] 25 mcg (1,000 unit) Capsule 50 mcg PO DAILY atorvastatin 40 mg tablet 40 mg PO DAILY nitroglycerin [Nitrostat] 0.4 mg tablet, sublingual 0.4 mg sublingual UD PRN (Reason: chest pain) Discontinued clopidogrel 75 mg tablet 75 mg PO QAM Qty: 90 3RF Millipred DP 5 mg (48 tabs) tablets,dose pack See Rx Instructions .ROUTE .COMPLEX Qty: 70 0RF Rx Instructions: Take 4 tablets by mouth every day x 7 days, then 3 tabs x 7 days, then 2 tabs x 7 days, then 1 tab x 7 days, then discontinue. Discharge Orders: Discharge Order (Routine); Ordered 07/12/22 Ordered By: Malaika Gasca Admission Data Admit Date/Time: 07/10/22 11:01 Attending Provider: Malaika Gasca Admit Provider: Garrett Daniels Primary Care Provider: Pino Tucker Other Providers: Garrett Daniels Other Interventions: Discharge Summary Assessment (RN) Last Done: 07/12/22 12:24 Coding Level of Care Code D/C DAY MANAGEMENT >30 MINS Diagnoses Bilateral pulmonary embolism I26.99 Hypoxia R09.02 Elevated troponin I level R77.8 S/P right coronary artery (RCA) stent placement Z95.5 Low energy R53.83 Hypothyroidism E03.9 Interstitial lung disease J84.9 Vitamin D deficiency E55.9 GERD (gastroesophageal reflux disease) K21.9 Dementia F03.90 BPH (benign prostatic hyperplasia) N40.0 Hyperlipidemia E78.5 Hypertension I10 Time Spent (min) 35
[2022-07-17 00:47] LABS: Anti Cardiolipin Ab IgG <2.0 GPL-U/mL; Anti Cardiolipin Ab IgM <2.0 MPL-U/mL; Anti-Thrombin III Activity 93 % normal (80-135); B2 Glycoprotein IgG <2.0 U/mL (<20.0); B2 Glycoprotein IgM <2.0 U/mL (<20.0); PTT LA Screen 35 sec (<=40); Protein S Functional(Activity) 94 % normal (70-150)
[2022-07-18 00:17] LABS: Factor 5 Mutation NEGATIVE
== END 2022-07-12 13:16 | disposition home or self-care (01) | DRG 176 ==
LOC: ED 09:11 → EDINP 11:01 → SUATTDRO 11:01 → 2E 13:05